=== PATIENT | female | born 1970 | race Caucasian/White ===

== ENCOUNTER 2018-06-30 10:19 | Emergency (ER) | payer OTHER, SELFPAY ==
--- NOTE | 2018-06-30 10:23 | ED_ITS ---
HPI - Extremity Injury (Upper) General Chief Complaint: Extremity Injury, Upper Stated Complaint: POSSIBLE BROKEN RT ELBOW Time Seen by Provider: 06/30/18 10:22 Source: patient Mode of arrival: ambulatory Limitations: no limitations History of Present Illness HPI narrative: Patient is a 48-year-old left-hand dominant female here for evaluation of right elbow injury. She states that she hit her right elbow on a produce cart while working at [employer]. She states that she ?heard a crack? has had pain in the elbow since then. It occurred just prior to arrival here in the ER. Related Data Home Medications Medication Instructions Recorded Confirmed gabapentin [Neurontin] 300 mg PO QHS 12/23/17 05/18/18 Previous Rx's Medication Instructions Recorded levothyroxine 100 mcg PO QAM #90 tab 08/05/17 estradiol 1 mg PO QDAY #90 tab 08/20/17 permethrin [Elimite] 1 carolina TOPICAL SEE INSTRUCTIONS #60 11/12/17 gm triamcinolone acetonide 0 gm TOPICAL BID #60 tube 12/15/17 paroxetine 20 mg tablet 40 mg PO QDAY #60 tab 05/19/18 Allergies Allergy/AdvReac Type Severity Reaction Status Date / Time codeine [CODEINE] Allergy Severe ANAPHYLAXIS Verified 06/30/18 10:26 Penicillins [PENICILLINS] Allergy Severe ANAPHYLAXIS Verified 06/30/18 10:26 shellfish derived Allergy Severe CRAB, Verified 06/30/18 10:26 [SHELLFISH DERIVED] SWELLING AIRWAIR CLOSED latex [LATEX] Allergy Mild rash Verified 06/30/18 10:26 Review of Systems Constitutional Denies fever(s) and Denies headache(s) ENT Ears, Nose, Mouth, and Throat: Denies headache(s) Musculoskeletal Denies myalgias, Denies deformity, Reports arthralgias (Right elbow), Denies joint swelling and Denies tingling Integumentary/Breasts Denies rash Neurologic Denies headache(s), Denies tingling and Denies paresthesias [facility] Medical History Anxiety (Chronic) Cervical spine disease (Chronic) Chronic back pain (Chronic) Depression (Chronic) Hypothyroidism (Chronic) Lumbar spine pain (Chronic) Surgical History Status post hysterectomy (Resolved) Social History marital status: Smoking Status: Current every day smoker alcohol intake: current (2 + A DAY ) substance use type: does not use Exam Initial Vital Signs Initial Vital Signs: Vital Signs Temperature 97.4 F L 06/30/18 10:26 Pulse Rate 84 06/30/18 10:26 Respiratory Rate 18 06/30/18 10:26 Blood Pressure 136/89 06/30/18 10:26 Pulse Oximetry 98 06/30/18 10:26 Const General: cooperative, healthy appearing, comfortable, well developed, well groomed and No acute distress Orientation: alert, awake and oriented x3 HENMT Head: normal to inspection and normocephalic Resp Effort & Inspection: normal respiratory effort Auscultation: clear to auscultation bilaterally Cardio Rate: regular rate Rhythm: regular rhythm Pulses: radial pulses present Skin Rashes: no rashes Neuro Sensory Exam: no sensory deficits noted Extrem Other: Tenderness to palpation over the medial epicondyle of the right elbow. Limited range of motion of the right elbow secondary to pain. Right forearm right wrist right hand right shoulder right upper arm unremarkable. Psych Appearance: grossly normal and well kempt Course Orders Ordered: ED Orders 06/30/18 10:23 XR elbow RT min 3V Stat 06/30/18 10:49 CT UE RT wo con Stat Vital Signs - 8 hr 06/30/18 10:26 Temperature 97.4 F L Pulse Rate 84 Respiratory Rate 18 Blood Pressure 136/89 Pulse Oximetry 98 MDM - Extremity Injury (Upper) Imaging Data X-ray elbow: Radiologist's impression: [address] [address] XRay Report Signed Patient: Alisha Hahn MMR#: [id number] : 1970Acct:[id number] Age/Sex: 48 / FDate of Service: 06/30/18 Loc: ED Accession Number: [id number] Procedure: XR elbow RT min 3V Ordering Provider: Aly Joy D.O. PROCEDURE: XR ELBOW RT MIN 3V INDICATIONS: Possible fractured elbow after fall TECHNIQUE: 3 views of the elbow were acquired. COMPARISON: None. FINDINGS: Bones: No displaced fractures or dislocations. No suspicious bony lesions. Small enthesophyte is identified along the lateral humeral epicondyle, likely at the common extensor tendon origin. Soft tissues: There is a moderate-sized elbow joint effusion. No suspicious soft tissue calcifications. IMPRESSION: Moderate-sized elbow joint effusion does raise the suspicion for possible nonvisualized/nondisplaced fracture, most likely involving the radial head. Please consider CT or MRI for further evaluation. Dictated by: Hunter Atkinson M.D. on 06/30/2018 at 9:35 Approved by: Hunter Atkinson M.D. on 06/30/2018 at 9:41 CT elbow: Radiologist's impression: PROCEDURE: CT UE RT WO CON INDICATIONS: Right elbow pain post injury. Abnormal X-ray TECHNIQUE: Noncontrast 1-1.5 mm axial sections were acquired through the elbow joint, with coronal and sagittal reformats. COMPARISON: [facility], , XR ELBOW RT MIN 3V, 06/30/2018, 10:27. FINDINGS: Image quality: Excellent. Bones: No fracture found. Soft tissues: No hematoma identified. No retracted tendon is seen. IMPRESSION: No trauma identified. Depending on the clinical status followup by MR scanning may become necessary. Dictated by: Jamin Knutson M.D. on 06/30/2018 at 11:16 Approved by: Jamin Knutson M.D. on 06/30/2018 at 11:18 [facility] Narrative Medical decision making narrative: Patient is neurovascularly intact. X-ray negative for fracture, CT scans negative for fracture. I do not feel that an MRI is needed secondary to her history and physical exam. Will place her in a sling for comfort. I did discuss this with the patient. Informed her to contact her primary care doctor for a follow-up. She was given return precautions. She expressed understanding and agreement with plan. Discharge Plan Departure Patient Disposition: Home Clinical Impression: Effusion of elbow joint, right, Contusion of elbow, right Instructions: How To Perform RICE (Rest, Ice, Compress, Elevate) Activity Restrictions/Additional Instructions: The sling is for your use as needed for comfort. I do recommend that you spent most of your time out of the sling to avoid stiffness of the right shoulder. Call your primary care doctor for a follow-up. You are only limited in your activity by the discomfort in your elbow. Return to the emergency department for any new or worsening symptoms Prescriptions: No Action levothyroxine 100 MCG tablet 100 mcg PO QAM Qty: 90 RF: 3 estradiol 1 MG tablet 1 mg PO QDAY Qty: 90 RF: 3 permethrin [Elimite] 5 % cream 1 carolina Topical SEE INSTRUCTIONS Qty: 60 RF: 1 triamcinolone acetonide 0.1 % cream Topical BID Qty: 60 RF: 0 paroxetine HCl [Paxil] 20 mg tablet 40 mg PO QDAY Qty: 60 RF: 3 gabapentin [Neurontin] 300 MG capsule 300 mg PO QHS RF: 0
[2018-06-30 10:26] VITALS: BP 136/89; PULSE 84; RESP 18; TEMP 36.3; O2SAT 98; BMI 28.3
--- NOTE | 2018-06-30 10:49 | DI.CT.S_ITS ---
PROCEDURE: CT UE RT WO CON INDICATIONS: Right elbow pain post injury. Abnormal X-ray TECHNIQUE: Noncontrast 1-1.5 mm axial sections were acquired through the elbow joint, with coronal and sagittal reformats. COMPARISON: [facility], CR, XR ELBOW RT MIN 3V, 06/30/2018, 10:27. FINDINGS: Image quality: Excellent. Bones: No fracture found. Soft tissues: No hematoma identified. No retracted tendon is seen. IMPRESSION: No trauma identified. Depending on the clinical status followup by MR scanning may become necessary. Dictated by: Jamin Knutson M.D. on 06/30/2018 at 11:16 Approved by: Jamin Knutson M.D. on 06/30/2018 at 11:18
[2018-06-30 11:58] VITALS: BP 130/92; PULSE 72; RESP 17; O2SAT 97
== END 2018-06-30 12:06 | disposition home or self-care (01) ==
PROVIDERS: Emergency Provider Emergency Medicine; PCP Family Medicine
DX: M25.421 Effusion, right elbow (principal); S50.01XA Contusion of right elbow, initial encounter; W22.8XXA Striking against or struck by other objects, initial encounter
CPT/HCPCS: 73080; 73200; 99282; 99283

== ENCOUNTER 2018-09-02 09:02 | Emergency (ER) | payer OTHER, SELFPAY ==
[2018-09-02 09:06] VITALS: BP 129/92; PULSE 82; RESP 18; TEMP 36.6; O2SAT 100
--- NOTE | 2018-09-02 12:22 | ED_ITS ---
HPI - Back Pain/Injury <BABAR Cole - Last Filed: 09/02/18 22:14> General Chief Complaint: Back Pain/Injury Stated Complaint: HIP PAIN,LUMPS ON BREAST Time Seen by Provider: 09/02/18 12:06 Source: patient Mode of arrival: ambulatory Limitations: no limitations History of Present Illness HPI Narrative: 48-year-old female with history of hypothyroidism and is everyday smoker here for complaint of right lower back pain and hip pain over the past week. She denies any falls or trauma to the area. She has a chronic history of lower back pain. Pain radiates from the right lower back down into her buttocks and thigh area. She denies any loss of bladder or bowel control. She is ambulatory into the emergency room. Increased pain with motion of the lower back. She also complains of feeling some lumps into her right breast that she noticed a week ago. She states that some of these lumps do cause some discomfort when she is rubbing that area. She denies any redness or swelling to the breast. No breast drainage. She reports that she has not had a mammogram for many years. MD Complaint: back pain Related Data Home Medications Medication Instructions Recorded Confirmed gabapentin [Neurontin] 300 mg PO QHS 12/23/17 07/29/18 Previous Rx's Medication Instructions Recorded paroxetine 20 mg tablet 40 mg PO QDAY #60 tab 05/19/18 benzonatate 200 mg capsule 200 mg PO TID PRN #14 cap 07/29/18 fluticasone 50 mcg/actuation nasal 2 spray NASAL DAILY #9.9 gram 07/29/18 spray,suspension estradiol 1 mg PO QDAY #90 tab 08/20/18 levothyroxine 100 mcg PO QAM #90 tab 08/20/18 cyclobenzaprine 10 mg PO TID PRN #12 tab 09/02/18 prednisone 40 mg PO DAILY #8 tab 09/02/18 Allergies Allergy/AdvReac Type Severity Reaction Status Date / Time codeine [CODEINE] Allergy Severe ANAPHYLAXIS Verified 07/29/18 13:25 Penicillins [PENICILLINS] Allergy Severe ANAPHYLAXIS Verified 07/29/18 13:25 shellfish derived Allergy Severe CRAB, Verified 07/29/18 13:25 [SHELLFISH DERIVED] SWELLING AIRWAIR CLOSED latex [LATEX] Allergy Mild rash Verified 12/06/18 13:25 Review of Systems <BABAR Cole - Last Filed: 09/02/18 22:14> Constitutional Denies chills, Denies fever(s), Denies lethargy and Denies weakness Eyes Denies change in vision, Denies eye discharge, Denies irritation and Denies loss of vision ENT Ears, Nose, Mouth, and Throat: Denies change in voice, Denies neck pain and Denies sore throat Cardiovascular Denies chest pain, Denies irregular heart rhythm, Denies lightheadedness, Denies palpitations, Denies dyspnea, Denies dyspnea on exertion and Denies orthopnea Respiratory Denies cough, Denies dyspnea, Denies dyspnea on exertion and Denies wheezing Gastrointestinal Gastrointestinal: Denies abdominal pain, Denies change in bowel habits, Denies diarrhea, Denies nausea and Denies vomiting Genitourinary Denies hematuria, Denies flank pain, Denies urinary incontinence and Denies urinary urgency Musculoskeletal Denies neck pain Comments: Pain to right lower back and radiating into buttocks and right thigh Integumentary/Breasts Comments: Lumps to right breast Neurologic Denies confusion, Denies loss of vision and Denies weakness Psychiatric Denies anxiety, Denies confusion, Denies depression, Denies homicidal ideation and Denies suicidal ideation Endocrine Denies palpitations Hematologic/Lymphatic Denies easy bruising Allergic/Immunologic Denies wheezing Exam <BABAR Cole - Last Filed: 09/02/18 22:14> Initial Vital Signs Initial Vital Signs: Vital Signs Temperature 97.9 F 09/02/18 09:06 Pulse Rate 82 09/02/18 09:06 Respiratory Rate 18 09/02/18 09:06 Blood Pressure 129/92 H 09/02/18 09:06 Pulse Oximetry 100 09/02/18 09:06 Const General: cooperative and well developed Nutritional Appearance: well nourished Orientation: alert, awake, oriented x3 and not confused HENFL Mouth: oral mucosae normal and moist mucous membranes Eyes Conjunctivae: conjunctivae normal Sclera: sclerae normal Pupils: PERRL EOM: EOM intact bilaterally Chest Other: Bilateral breast with no swelling no erythema no signs of infection. No discharge. Multiple firm nodules felt to the right lower breast. No induration and no fluctuance Resp Effort & Inspection: normal respiratory effort, able to speak in complete sentences, no respiratory distress and no use of accessory muscles Auscultation: clear to auscultation bilaterally, no rales, no rhonchi and no wheezes Cardio Rate: regular rate Rhythm: regular rhythm Heart Sounds: no click, no gallops, no murmurs and no rubs Skin General: no rashes or lesions noted, No jaundice and No petechiae Neuro General: alert, oriented x3, gait normal and no focal motor deficits Speech: speech normal <Ellie Castro DO - Last Filed: 09/05/18 09:09> Initial Vital Signs Initial Vital Signs: Vital Signs Temperature 97.9 F 09/02/18 09:06 Pulse Rate 82 09/02/18 09:06 Respiratory Rate 18 09/02/18 09:06 Blood Pressure 129/92 H 09/02/18 09:06 Pulse Oximetry 100 09/02/18 09:06 Course <BABAR Cole - Last Filed: 09/02/18 22:14> Vital Signs - 8 hr 09/02/18 09:06 Temperature 97.9 F Pulse Rate 82 Respiratory Rate 18 Blood Pressure 129/92 H Pulse Oximetry 100 <Ellie Castro DO - Last Filed: 09/05/18 09:09> Vital Signs - 8 hr 09/02/18 09:06 Temperature 97.9 F Pulse Rate 82 Respiratory Rate 18 Blood Pressure 129/92 H Pulse Oximetry 100 MDM - Back Pain/Injury <BABAR Cole - Last Filed: 09/02/18 22:14> MDM Narrative Medical decision making narrative: Acute on chronic pain into the right lumbar paraspinal area that radiates into the buttocks and thighs presents as sciatica. Will treat with short course of prednisone muscle relaxer and over- the-counter ibuprofen. Multiple nodules to the right lower breast felt on exam no signs of infection will have patient follow up with primary care provider for mammogram. For any worsening symptoms return to the emergency room. Discharge Plan Departure Patient Disposition: Home Clinical Impression: Back pain, Breast nodule Discharge Date/Time: 09/02/18 12:48 Interventions: ED Discharge Assessment Last Done: 09/02/18 12:46 Instructions: DI for Back Pain With Sciatica Activity Restrictions/Additional Instructions: Back and hip pain presents as sciatica. Use [id number] ibuprofen for discomfort. Short course of prednisone is prescribed for anti-inflammatory effects along with a muscle relaxer use as directed. No driving on the muscle relaxers a can make you drowsy. Recommend further evaluation for nodules to the right breast by follow up primary care provider and scheduling mammogram. Follow up with primary care provider. Return emergency room for any worsening symptoms. Prescriptions: New cyclobenzaprine 10 mg tablet 10 mg PO TID PRN (Reason: muscle spasm) Qty: 12 RF: 0 prednisone 20 mg tablet 40 mg PO DAILY Qty: 8 RF: 0 No Action paroxetine HCl [Paxil] 20 mg tablet 40 mg PO QDAY Qty: 60 RF: 3 estradiol 1 mg tablet 1 mg PO QDAY Qty: 90 RF: 3 levothyroxine 100 mcg tablet 100 mcg PO QAM Qty: 90 RF: 0 benzonatate 200 mg capsule 200 mg PO TID PRN (Reason: cough) Qty: 14 RF: 0 fluticasone 50 mcg/actuation spray,suspension 2 spray NASAL DAILY Qty: 9.9 RF: 0 gabapentin [Neurontin] 300 MG capsule 300 mg PO QHS RF: 0 Referrals: Justino Cintron MD [Primary Care Provider] - Stand Alone Forms: Work Release Note <Ellie Castro DO - Last Filed: 09/05/18 09:09> Cosign ED Attending Cosignature Attestation: I was immediately available in the department for consultation. This documentation has been reviewed and I agree with assessment and plan. Supervised by Ellie Castro DO
[2018-09-02 12:46] VITALS: BP 131/102; PULSE 82; RESP 20; O2SAT 96
== END 2018-09-02 12:48 | disposition home or self-care (01) ==
PROVIDERS: Emergency Provider Nurse Practitioner Family; PCP Family Medicine
DX: M54.9 Dorsalgia, unspecified (principal); N63.0 Unspecified lump in unspecified breast
CPT/HCPCS: 99282

== ENCOUNTER → 2019-01-24 12:00 | Outpatient (CLI) | payer OTHER, MEDICAID, SELFPAY ==
[2019-01-24 12:49] LABS: Add Manual Diff / Slide Review NO; Basophils Absolute Auto 0 /uL (0-100); Basophils Percent Auto 0.9 % (0-2); Eosinophils Absolute Auto 0 /uL (0-450); Eosinophils Percent Auto 0.8 % (2-4); Hematocrit 41.4 % (36-46); Hemoglobin 14.5 g/dL (12.0-16.0); Lymphocytes Absolute Auto 1500 /uL (1100-4500); Lymphocytes Percent Auto 26.1 % (25-40); Mean Corpuscular HGB Conc 34.9 % (30-36); Mean Corpuscular Volume 94.5 fL (80-100); Monocytes Absolute Auto 600 /uL (0-900); Monocytes Percent Auto 10.7 % (3-14); Neutrophils Absolute Auto 3400 /uL (1500-7000); Neutrophils Percent Auto 61.5 % (50-75); Platelet Count 212 X10^3/uL (150-400); Red Blood Cell Count 4.38 X10^6/uL (4.0-5.2); Red Cell Distribution Width 13.3 % (11.6-14.8); White Blood Cell Count 5.6 X10^3/uL (4.5-11.0)
[2019-01-24 12:50] LABS: Alanine Aminotransferase 18 IU/L (9-52); Albumin 4.3 g/dL (3.5-5.0); Albumin Globulin Ratio 0.9 (1.0-2.8); Alkaline Phosphatase 114 U/L (38-126); Aspartate Aminotransferase 29 IU/L (14-36); BUN Creatinine Ratio 21.4 (6-22); Bilirubin Total 0.7 mg/dL (0.2-1.3); Blood Urea Nitrogen 15 mg/dL (7-17); Calcium 9.5 mg/dL (8.4-10.2); Carbon Dioxide 22 mmol/L (22-32); Chloride 104 mmol/L (98-107); Cholesterol 201 mg/dL (140-199); Estimated Glomerular Filt Rate > 60.0 mL/min (>60); Glucose 93 mg/dL (70-100); HDL Cholesterol 70 mg/dL (40-60); HEMOLYSIS < 15 (0-50); LDL Cholesterol Calculated 84 mg/dL (<100); Potassium 4.4 mmol/L (3.4-5.1); Sodium 136 mmol/L (137-145); Total Protein 9.3 g/dL (6.3-8.2); Triglycerides 234 mg/dL (35-150)
== END ==
PROVIDERS: PCP Family Medicine; Visit Provider Nurse Practitioner
DX: Z00.00 Encounter for general adult medical examination without abnormal findings (principal)
CPT/HCPCS: 36415; 80053; 80061; 84439; 85025

== ENCOUNTER 2019-10-07 08:06 | Emergency (ER) | payer OTHER, MEDICAID, SELFPAY ==
[2019-10-07 08:15] VITALS: BP 157/87; PULSE 114; RESP 20; TEMP 36.7; O2SAT 99; BMI 21.2
--- NOTE | 2019-10-07 08:20 | DI.RAD.S_ITS ---
PROCEDURE: XR FOREARM RT 2V INDICATIONS: trip and fall, left shoulder, humerus and forearm pain TECHNIQUE: 2 views of the forearm were acquired. COMPARISON: None. FINDINGS: Bones: No fractures or dislocations. No suspicious bony lesions. Soft tissues: No suspicious soft tissue calcifications or masses. IMPRESSION: No fracture. No osseous lesion. If symptoms and/or clinical suspicion for pathology persists, further assessment with repeat radiographs (7-10 days) or advanced imaging (e.g. CT, MRI or bone scan) may be helpful. Dictated by: Trina Sanchez MD, PhD on 10/07/2019 at 8:55 Approved by: Trina Sanchez MD, PhD on 10/07/2019 at 9:01
--- NOTE | 2019-10-07 08:20 | DI.RAD.S_ITS ---
PROCEDURE: XR SHOULDER LT MIN 2V INDICATIONS: trip and fall, left shoulder, humerus and forearm pain TECHNIQUE: 3 views of the shoulder were acquired. COMPARISON: [facility], , SHOULDER MINIMUM 2VIEW RIGHT, 08/27/2007, 13:04. FINDINGS: Bones: No fractures or dislocations. No suspicious bony lesions. Visualized ribs appear intact. Soft tissues: No suspicious soft tissue calcifications. IMPRESSION: No evidence acute bony abnormality of the left shoulder. If clinical suspicion and/or symptoms persist, further assessment with repeat plain films, or advanced imaging (e.g., CT, MRI, or bone scan) may be helpful for further assessment. Dictated by: Larry Hyatt M.D. on 10/07/2019 at 8:57 Approved by: Larry Hyatt M.D. on 10/07/2019 at 8:58
--- NOTE | 2019-10-07 08:20 | DI.RAD.S_ITS ---
PROCEDURE: XR HUMERUS LT 2V INDICATIONS: trip and fall, left shoulder, humerus and forearm pain TECHNIQUE: 2 views of the humerus were acquired. COMPARISON: None. FINDINGS: Bones: No fractures or dislocations. No suspicious bony lesions. Soft tissues: No suspicious soft tissue calcifications. IMPRESSION: No fracture. No osseous lesion. If symptoms and/or clinical suspicion for pathology persists, further assessment with repeat radiographs (7-10 days) or advanced imaging (e.g. CT, MRI or bone scan) may be helpful. Dictated by: Trina Sanchez MD, PhD on 10/07/2019 at 8:52 Approved by: Trina Sanchez MD, PhD on 10/07/2019 at 8:55
--- NOTE | 2019-10-07 08:24 | ED_ITS ---
HPI - Extremity Injury (Upper) General Chief Complaint: Extremity Injury, Upper Stated Complaint: FELL A WEEK AGO,LEFT SHOULDER PAIN Time Seen by Provider: 10/07/19 08:15 History of Present Illness HPI narrative: CC: The left shoulder and arm pain. HPI: The patient is a 49-year-old female who 1 week ago tripped and fell over her dog and injured her left arm and shoulder when she fell. She was extending her left arm to catch herself and jammed her arm and left shoulder. She has had increasing pain and discomfort ever since. She denies any head injury neck injury neck pain back pain, chest pain, abdominal pain. She did not lose consciousness. She does not have a headache. She has had no incontinence of urine or stool when she fell. She has had no abdominal pain nausea vomiting or diarrhea. Related Data Home Medications Medication Instructions Recorded Confirmed gabapentin 300 mg capsule 600 mg PO DAILY cap 08/03/19 08/31/19 Previous Rx's Medication Instructions Recorded estradiol 1 mg tablet See Rx Instructions .ROUTE 05/23/19 .COMPLEX #30 tablet levothyroxine 100 mcg tablet See Rx Instructions .ROUTE 08/29/19 .COMPLEX #90 tablet paroxetine HCl 20 mg tablet See Rx Instructions .ROUTE 09/30/19 .COMPLEX #60 tablet cyclobenzaprine 10 mg PO TID PRN #15 tab 10/07/19 naproxen 500 mg PO Q12H PRN #20 tab 10/07/19 Allergies Allergy/AdvReac Type Severity Reaction Status Date / Time codeine [CODEINE] Allergy Severe ANAPHYLAXIS Verified 08/31/19 10:49 Penicillins [PENICILLINS] Allergy Severe ANAPHYLAXIS Verified 08/31/19 10:49 shellfish derived Allergy Severe CRAB, Verified 08/31/19 10:49 [SHELLFISH DERIVED] SWELLING AIRWAIR CLOSED latex [LATEX] Allergy Mild rash Verified 08/31/19 10:49 Review of Systems Review of Systems Narrative: She denies any headache, numbness tingling loss of sensation. She has had no weakness or paralysis but feels like she can't use her left arm. She has had no fever chills sweats chest pain cough shortness of breath difficulty in breathing. She does smoke cigarettes. She has had no abdominal pain nausea vomiting diarrhea. She has had no urinary symptoms. Patient History Medical History Anxiety (Chronic) Cervical spine disease (Chronic) Chronic back pain (Chronic) Chronic pain (Acute) Depression (Chronic) Dizziness (Acute) Encounter for smoking cessation counseling (Acute) Fatigue (Acute) Greater trochanteric bursitis of right hip (Acute) Hypothyroidism (Chronic) Insomnia disorder, with non-sleep disorder mental comorbidity (Acute) Lumbar spine pain (Chronic) Psoas muscle strain (Acute) Somatic dysfunction of abdominal region (Acute) Tobacco abuse disorder (Acute) Surgical History Status post hysterectomy (Resolved) Social History marital status: Smoking Status: Current every day smoker (4 cigarettes a day) alcohol intake: current (2 + A DAY ) substance use type: does not use Smoking Status: Current every day smoker (4 cigarettes a day) alcohol intake frequency: 0-2 drinks per day Substance Use Type: does not use Exam Narrative Exam Narrative: PHYSICAL EXAM: CONSTITUTIONAL: Awake, Alert, Oriented, Coherent, Cooperative in NAD. Sitting on the edge of the bed holding her left arm partially splinted again HEAD: AT/NC EENT: PERRL, FROM of eyes, no discharge, no nystagmus Odor of tobacco NECK: Supple, no obvious JVD, Trachea is midline without stridor, SPINE: No gross deformity, mild tenderness to palpation over the midthoracic spine without any deformity. No CVA tenderness. The patient's left shoulder is diffusely tender to palpation over the trapezius and rhomboid muscles. She is able to passively abduct her left shoulder to the horizontal position but grimaces with pain. Palpation of the head of the humerus is tender and proximal humerus without any deformity. She resists internal and external rotation of the shoulder. She is able to flex and extend her elbow as well as supinate her forearm. Her mid forearm is tender to palpation without appreciable deformity. Her radial pulse is 2 +. She has good capillary refill in her fingers and sensation. 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 THORAX: No deformity, retractions, chest wall tenderness, LUNGS: Clear with symmetrical breath sounds without respiratory distress HEART: Normal heart tones, regular rhythm and rate without murmur. ABDOMEN: Soft, non-tender, normal bowel sounds without guarding, rebound, rigidity or palpable mass or EXTREMITIES: No edema, cyanosis, deformity SKIN: No bruising care purple she has a papular rash over the volar left forearm. NEURO: Awake, alert, oriented, no focal facial asymmetry/ cranial nerves II-XII are symmetrical, moves all 4 extremities and is ambulatory Initial Vital Signs Initial Vital Signs: Vital Signs Temperature 98.1 F 10/07/19 08:15 Pulse Rate 114 H 10/07/19 08:15 Respiratory Rate 20 10/07/19 08:15 Blood Pressure 157/87 H 10/07/19 08:15 Pulse Oximetry 99 10/07/19 08:15 Course Course Course Narrative: 0832: For the patient's pain and discomfort she was administered Flexeril 10 mg p.o. and Toradol 30 mg IM. X-rays of her left shoulder left humerus and forearms were ordered. 0905: The patient's x-rays are all negative for any fractures. The patient will be referred to her primary care physician to get a referral to physical therapy to evaluate and treat. In the meantime she will be treated with cyclobenzaprine 10 mg 3 times a day as needed for muscle spasms and Naprosyn 500 mg b.i.d. for pain and discomfort. Orders Ordered: Discontinued Medications Cyclobenzaprine HCl (Flexeril) 10 mg PO NOW ONE Stop: 10/07/19 08:21 Last Admin: 10/07/19 08:53 Dose: 10 mg Documented by: SHALOM Ketorolac Tromethamine (Toradol) 30 mg IM NOW ONE Stop: 10/07/19 08:21 Last Admin: 10/07/19 08:53 Dose: 30 mg Documented by: SHALOM Vital Signs Vital signs: Vital Signs - 8 hr 10/07/19 08:15 Temperature 98.1 F Pulse Rate 114 H Respiratory Rate 20 Blood Pressure 157/87 H Pulse Oximetry 99 Discharge Plan Departure Patient Disposition: Home Clinical Impression: Injury of shoulder Qualifiers: Encounter type: initial encounter Laterality: left Qualified Code(s): S49.92XA - Unspecified injury of left shoulder and upper arm, initial encounter Arm pain Qualifiers: Laterality: left Qualified Code(s): M79.602 - Pain in left arm Fall Qualifiers: Encounter type: initial encounter Qualified Code(s): W19.XXXA - Unspecified fall, initial encounter Acute shoulder pain Qualifiers: Laterality: left Qualified Code(s): M25.512 - Pain in left shoulder Muscle strain of forearm Qualifiers: Encounter type: initial encounter Laterality: left Qualified Code(s): S56.912A - Strain of unspecified muscles, fascia and tendons at forearm level, left arm, initial encounter Discharge Date/Time: 10/07/19 09:48 Instructions: DI for Wrist Sprain, DI for Contusion, DI for Muscle Strain, DI for Shoulder Sprain, DI for Forearm Muscle Strain, DI for Shoulder Pain Activity Restrictions/Additional Instructions: You need to follow-up with your family doctor for a recheck and re-evaluation and obtain a referral to physical therapy to evaluate and treat. You can apply cold compresses to the areas of discomfort every 2-3 hours for 20-30 minutes. You can also try warm compresses and see which helps with your pain and discomfort warmth or cold compresses. Wear the sling as needed for support and to rest your arm. However you must continue to use the arm to prevent it from freezing up and developing a frozen shoulder. For the pain and discomfort and muscle spasms use the Naprosyn and cyclobenzaprine 10 mg 3 times a day as needed for muscle spasms cramps and persistent pain. Prescriptions: New cyclobenzaprine 10 mg tablet 10 mg PO TID PRN (Reason: muscle spasm) Qty: 15 RF: 0 naproxen 500 mg tablet,delayed release (DR/EC) 500 mg PO Q12H PRN (Reason: pain) Qty: 20 RF: 0 No Action estradiol 1 mg tablet See Rx Instructions .ROUTE .COMPLEX Qty: 30 RF: 1 levothyroxine 100 mcg tablet See Rx Instructions .ROUTE .COMPLEX Qty: 90 RF: 2 paroxetine HCl 20 mg tablet See Rx Instructions .ROUTE .COMPLEX Qty: 60 RF: 1 gabapentin 300 mg capsule 600 mg PO DAILY RF: 0 Referrals: Mickey Falcon DO [Primary Care Provider] -
[2019-10-07] MEDS: KETOROLAC 60 MG/2 ML VIAL 30 MG IM (08:53)
[2019-10-07] MEDS: CYCLOBENZAPRINE 10 MG TABLET PO (08:53)
[2019-10-07 09:45] VITALS: BP 115/71; PULSE 100; RESP 18; O2SAT 98
--- NOTE | 2019-10-07 09:46 | PC.NURSE ---
placed sling on patient prior to discharge. reviewed all discharge instructions with patient.
== END 2019-10-07 09:48 | disposition home or self-care (01) ==
PROVIDERS: Emergency Provider Emergency Medicine; PCP Family Medicine
DX: S49.92XA Unspecified injury of left shoulder and upper arm, initial encounter (principal); S56.912A Strain of unspecified muscles, fascia and tendons at forearm level, left arm, initial encounter; W01.0XXA Fall on same level from slipping, tripping and stumbling without subsequent striking against object, initial encounter
CPT/HCPCS: 73030; 73060; 73090; 96372; 99284; J1885

== ENCOUNTER 2020-01-26 13:35 | Emergency (ER) | payer OTHER, MEDICAID, SELFPAY ==
[2020-01-26 13:47] VITALS: BP 131/78; PULSE 91; RESP 16; TEMP 36.9; O2SAT 98; BMI 28.0
--- NOTE | 2020-01-26 13:57 | ED.GENADULT ---
HPI - General Adult General Chief complaint: Weakness Stated complaint: 'i don't feel good' weakness Time Seen by Provider: 01/26/20 13:49 Source: patient Mode of arrival: Ambulatory Limitations: no limitations History of Present Illness HPI narrative: 49-year-old female here for evaluation of generally not feeling very well and also an upset stomach. She states that she threw up a couple days ago and since then she has had an upset stomach and weakness. She has been tolerating oral intake. Other than that 1 episode of vomiting no prior episodes. No diarrhea. No urinary symptoms. No recent antibiotics. No sick contacts. Has not tried anything for symptoms prior to arrival. She came into the emergency department today because she continued to have ?a queasy stomach ?after eating a ham and cheese sandwich for lunch. Related Data Home Medications Medication Instructions Recorded Confirmed gabapentin 300 mg capsule 300 mg PO TID PRN 11/02/19 Previous Rx's Medication Instructions Recorded levothyroxine 100 mcg tablet See Rx Instructions .ROUTE 08/29/19 .COMPLEX #90 tablet cyclobenzaprine 10 mg PO TID PRN #15 tab 10/07/19 naproxen 500 mg tablet,delayed 500 mg PO Q12H PRN #20 tab 11/22/19 release estradiol 1 mg tablet See Rx Instructions .ROUTE 12/07/19 .COMPLEX #30 tablet paroxetine HCl 20 mg tablet See Rx Instructions .ROUTE 12/07/19 .COMPLEX #60 tablet ondansetron 4 mg PO Q6H PRN #14 tab 01/26/20 Allergies Allergy/AdvReac Type Severity Reaction Status Date / Time codeine [CODEINE] Allergy Severe ANAPHYLAXIS Verified 01/26/20 13:49 Penicillins [PENICILLINS] Allergy Severe ANAPHYLAXIS Verified 01/26/20 13:49 shellfish derived Allergy Severe CRAB, Verified 01/26/20 13:49 [SHELLFISH DERIVED] SWELLING AIRWAIR CLOSED latex [LATEX] Allergy Mild rash Verified 01/26/20 13:49 Review of Systems Constitutional Constitutional: Reports fatigue, Denies fever(s), Reports lethargy, Reports malaise and Reports weakness Cardiovascular Cardiovascular: Denies chest pain and Denies dyspnea Respiratory Respiratory: Denies dyspnea Gastrointestinal Gastrointestinal: Denies change in bowel habits, Denies diarrhea, Reports nausea and Reports vomiting Comments: Upset stomach Genitourinary Genitourinary: Denies dysuria Genitourinary: Denies dysuria Integumentary/Breasts Skin/Breast: Denies rash Neurologic Neurologic: Denies behavioral changes and Reports weakness Psychiatric Psychiatric: Denies behavioral changes Endocrine Endocrine: Reports fatigue Hematologic/Lymphatic Hematologic/Lymphatic: Denies easy bleeding and Denies easy bruising Patient History Medical History Anxiety (Chronic) Cervical spine disease (Chronic) Chronic back pain (Chronic) Chronic pain (Acute) Depression (Chronic) Dizziness (Acute) Encounter for smoking cessation counseling (Acute) Fatigue (Acute) Greater trochanteric bursitis of right hip (Acute) Hypothyroidism (Chronic) Insomnia disorder, with non-sleep disorder mental comorbidity (Acute) Lumbar spine pain (Chronic) Psoas muscle strain (Acute) Somatic dysfunction of abdominal region (Acute) Tobacco abuse disorder (Acute) Surgical History Status post hysterectomy (Resolved) Social History marital status: Smoking Status: Current every day smoker alcohol intake: current (2 + A DAY ) substance use type: does not use Smoking Status: Current every day smoker alcohol intake frequency: 0-2 drinks per day Substance Use Type: does not use Exam Initial Vital Signs Initial Vital Signs: Vital Signs Temperature 98.4 F 01/26/20 13:47 Pulse Rate 91 H 01/26/20 13:47 Respiratory Rate 16 01/26/20 13:47 Blood Pressure 131/78 01/26/20 13:47 Pulse Oximetry 98 01/26/20 13:47 Const General: cooperative and comfortable HENMT Head: normal to inspection and normocephalic Mouth: oral mucosae normal Resp Effort & Inspection: normal respiratory effort Auscultation: clear to auscultation bilaterally Cardio Rate: regular rate Rhythm: regular rhythm GI Inspection: non-distended Palpation: soft, No firm and No tender Skin Lesions: no lesions Rashes: no rashes Neuro General: patient alert and patient awake Cognition: normal cognition Speech: speech normal Extrem General: normal to inspection and capillary refill normal Psych Appearance: grossly normal and well kempt Scores GCS Aurora coma scale eye opening: Spontaneous Aurora coma scale verbal response: Orientated Lex coma scale motor response: Obey commands Aurora coma scale total score: 15 Course Orders Ordered: ED Orders 01/26/20 13:50 Complete Blood Count AUTO DIFF Stat Comprehensive Metabolic Panel Stat Lipase Stat Discontinued Medications Sodium Chloride (Normal Saline 0.9%) 1,000 mls @ 1,000 mls/hr IV BOLUS ONE Stop: 01/26/20 14:56 Last Admin: 01/26/20 14:03 Dose: 1,000 mls/hr Documented by: VANCE Ondansetron HCl (Zofran) 4 mg IV NOW ONE Stop: 01/26/20 13:58 Last Admin: 01/26/20 14:03 Dose: 4 mg Documented by: VANCE Vital Signs Vital signs: Vital Signs - 8 hr 01/26/20 13:47 01/26/20 14:00 01/26/20 14:30 Temperature 98.4 F Pulse Rate 91 H 88 82 Respiratory Rate 16 16 Blood Pressure 131/78 Blood Pressure [Right Arm] 117/74 113/69 Pulse Oximetry 98 94 96 Medical Decision Making Lab Data Lab results reviewed: Yes I reviewed the patient's lab results. Result diagrams: 01/26/20 13:50 01/26/20 13:50 Labs: Lab Results 01/26/20 01/26/20 Range/Units 13:50 13:50 WBC 4.7 (4.5-11.0) X10^3/uL RBC 4.07 (4.0-5.2) X10^6/uL Hgb 13.7 (12.0-16.0) g/dL Hct 39.0 (36-46) % MCV 95.8 (80-100) fL MCH 33.6 (26-34) PG MCHC 35.1 (30-36) % RDW 12.7 (11.6-14.8) % Plt Count 217 (150-400) X10^3/uL Neut % (Auto) 40.8 L (50-75) % Lymph % (Auto) 36.1 (25-40) % King % (Auto) 17.6 H (3-14) % Eos % (Auto) 4.7 H (2-4) % Baso % (Auto) 0.8 (0-2) % Neut # (Auto) 1900 (4631-6898) /uL Lymph # (Auto) 1700 (9896-2392) /uL King # (Auto) 800 (0-900) /uL Eos # (Auto) 200 (0-450) /uL Baso # (Auto) 0 (0-100) /uL Sodium 137 (137-145) mmol/L Potassium 3.9 (3.4-5.1) mmol/L Chloride 106 (98-107) mmol/L Carbon Dioxide 22 (22-32) mmol/L BUN 19 H (7-17) mg/dL Creatinine 0.81 (0.52-1.04) mg/dL Estimated GFR > 60.0 (>60) mL/min BUN/Creatinine Ratio 23.5 H (6-22) Glucose 114 H (70-100) mg/dL Calcium 9.2 (8.4-10.2) mg/dL Total Bilirubin 0.7 (0.2-1.3) mg/dL AST 36 (14-36) IU/L ALT 20 (<35) IU/L Alkaline Phosphatase 95 (38-126) U/L Total Protein 9.3 H (6.3-8.2) g/dL Albumin 4.2 (3.5-5.0) g/dL Globulin 5.1 H (1.7-4.1) g/dL Albumin/Globulin Ratio 0.8 L (1.0-2.8) Lipase 67 (23-300) U/L MDM Narrative Medical decision making narrative: Patient reports improvement of her nausea and ?queasy ?stomach after Zofran. She still states she is very fatigued. Her labs are unremarkable. She is not having diarrhea. I feel we can hold on further workup. Patient is safe to be discharged home. Will send home with a prescription for Zofran. She was given return precautions. She expressed understanding and agreement. Discharge Plan Departure Patient Disposition: Home Clinical Impression: Nausea Fatigue Qualifiers: Fatigue type: unspecified Qualified Code(s): R53.83 - Other fatigue Instructions: DI for Fatigue Activity Restrictions/Additional Instructions: Use the nausea medicine as needed and as directed. They were electronically transmitted to [facility]. Be sure to eat a bland diet. Be sure to get plenty of fluids and sleep. Contact your primary provider for follow-up. Prescriptions: New ondansetron 4 mg tablet,disintegrating 4 mg PO Q6H PRN (Reason: nausea and vomiting) Qty: 14 RF: 0 No Action levothyroxine 100 mcg tablet See Rx Instructions .ROUTE .COMPLEX Qty: 90 RF: 2 gabapentin 300 mg capsule 300 mg PO TID PRN (Reason: Pain) RF: 0 naproxen 500 mg tablet,delayed release (DR/EC) 500 mg PO Q12H PRN (Reason: pain) Qty: 20 RF: 0 paroxetine HCl 20 mg tablet See Rx Instructions .ROUTE .COMPLEX Qty: 60 RF: 1 estradiol 1 mg tablet See Rx Instructions .ROUTE .COMPLEX Qty: 30 RF: 1 cyclobenzaprine 10 mg tablet 10 mg PO TID PRN (Reason: muscle spasm) Qty: 15 RF: 0 Referrals: Mickey Falcon DO [Primary Care Provider] -
[2020-01-26 14:00] VITALS: BP 117/74; PULSE 88; RESP 16; O2SAT 94
[2020-01-26 14:03] LABS: Add Manual Diff / Slide Review NO; Basophils Absolute Auto 0 /uL (0-100); Basophils Percent Auto 0.8 % (0-2); Eosinophils Absolute Auto 200 /uL (0-450); Eosinophils Percent Auto 4.7 % (2-4); Hemoglobin 13.7 g/dL (12.0-16.0); Lymphocytes Absolute Auto 1700 /uL (1100-4500); Lymphocytes Percent Auto 36.1 % (25-40); Mean Corpuscular HGB Conc 35.1 % (30-36); Mean Corpuscular Hemoglobin 33.6 PG (26-34); Mean Corpuscular Volume 95.8 fL (80-100); Monocytes Absolute Auto 800 /uL (0-900); Monocytes Percent Auto 17.6 % (3-14); Neutrophils Absolute Auto 1900 /uL (1500-7000); Neutrophils Percent Auto 40.8 % (50-75); Platelet Count 217 X10^3/uL (150-400); Red Blood Cell Count 4.07 X10^6/uL (4.0-5.2); Red Cell Distribution Width 12.7 % (11.6-14.8); White Blood Cell Count 4.7 X10^3/uL (4.5-11.0)
[2020-01-26] MEDS: ONDANSETRON 4 MG/2 ML INJ IV (14:03)
[2020-01-26] MEDS: SODIUM CHLORIDE 0.9% 1,000 ML 1000 ML IV (14:03)
[2020-01-26 14:08] LABS: Alanine Aminotransferase 20 IU/L (<35); Albumin 4.2 g/dL (3.5-5.0); Albumin Globulin Ratio 0.8 (1.0-2.8); Alkaline Phosphatase 95 U/L (38-126); Aspartate Aminotransferase 36 IU/L (14-36); BUN Creatinine Ratio 23.5 (6-22); Bilirubin Total 0.7 mg/dL (0.2-1.3); Blood Urea Nitrogen 19 mg/dL (7-17); Calcium 9.2 mg/dL (8.4-10.2); Carbon Dioxide 22 mmol/L (22-32); Chloride 106 mmol/L (98-107); Estimated Glomerular Filt Rate > 60.0 mL/min (>60); Globulin 5.1 g/dL (1.7-4.1); Glucose 114 mg/dL (70-100); HEMOLYSIS < 15 (0-50); Lipase 67 U/L (23-300); Potassium 3.9 mmol/L (3.4-5.1); Sodium 137 mmol/L (137-145); Total Protein 9.3 g/dL (6.3-8.2)
--- NOTE | 2020-01-26 14:13 | PC.NURSE ---
Pt states she has been having generalized weakness, NVD since thursday.
[2020-01-26 14:30] VITALS: BP 113/69; PULSE 82; O2SAT 96
[2020-01-26 15:25] VITALS: BP 109/66; PULSE 82; RESP 16; O2SAT 97
== END 2020-01-26 15:25 | disposition home or self-care (01) ==
PROVIDERS: Emergency Provider Emergency Medicine; PCP Family Medicine
DX: R11.0 Nausea (principal); R53.1 Weakness
CPT/HCPCS: 36415; 80053; 83690; 85025; 96361; 96374; 99284; J2405

== ENCOUNTER 2020-09-16 15:38 | Emergency (ER) | payer OTHER, MEDICAID, SELFPAY ==
[2020-09-16 15:43] VITALS: BP 146/86; PULSE 85; RESP 22; TEMP 37.1; O2SAT 97
[2020-09-16 15:58] LABS: Add Manual Diff / Slide Review NO; Basophils Absolute Auto 0 /uL (0-100); Basophils Percent Auto 1.1 % (0-2); Eosinophils Absolute Auto 200 /uL (0-450); Eosinophils Percent Auto 3.7 % (2-4); Hemoglobin 13.9 g/dL (12.0-16.0); Lymphocytes Absolute Auto 1600 /uL (1100-4500); Lymphocytes Percent Auto 37.6 % (25-40); Mean Corpuscular HGB Conc 33.8 % (30-36); Mean Corpuscular Hemoglobin 31.6 PG (26-34); Mean Corpuscular Volume 93.3 fL (80-100); Monocytes Absolute Auto 700 /uL (0-900); Monocytes Percent Auto 16.1 % (3-14); Neutrophils Absolute Auto 1800 /uL (1500-7000); Neutrophils Percent Auto 41.5 % (50-75); Platelet Count 239 X10^3/uL (150-400); Red Blood Cell Count 4.39 X10^6/uL (4.0-5.2); Red Cell Distribution Width 12.4 % (11.6-14.8); White Blood Cell Count 4.2 X10^3/uL (4.5-11.0)
[2020-09-16 16:04] LABS: INR 1.1 (0.9-1.3)
[2020-09-16 16:06] LABS: PTT Partial Thromboplastin Tim 32 SECONDS (26.4-36.2)
[2020-09-16 16:08] LABS: Alanine Aminotransferase 18 IU/L (<35); Alkaline Phosphatase 92 U/L (38-126); Aspartate Aminotransferase 28 IU/L (14-36); BUN Creatinine Ratio 19.2 (6-22); Bilirubin Total 0.3 mg/dL (0.2-1.3); Blood Urea Nitrogen 15 mg/dL (7-17); Calcium 9.2 mg/dL (8.4-10.2); Carbon Dioxide 30 mmol/L (22-32); Chloride 104 mmol/L (98-107); Estimated Glomerular Filt Rate > 60.0 mL/min (>60); Glucose 88 mg/dL (70-100); HEMOLYSIS < 15 (0-50); Lipase 80 U/L (23-300); Sodium 137 mmol/L (137-145)
[2020-09-16 16:19] LABS: Albumin 4.2 g/dL (3.5-5.0); Albumin Globulin Ratio 0.7 (1.0-2.8); Globulin 5.7 g/dL (1.7-4.1)
[2020-09-16 16:20] LABS: Total Protein 9.9 g/dL (6.3-8.2)
--- NOTE | 2020-09-16 16:25 | PC.NURSE ---
informed Dr. Castro of critical lab Total Protein 9.9, communication acknowledged, no orders given
--- NOTE | 2020-09-16 16:31 | ED_ITS ---
HPI - Abdominal Pain General Chief Complaint: Abdominal Pain Stated Complaint: abdominal pain x5 days Time Seen by Provider: 09/16/20 16:28 Source: patient Mode of arrival: Ambulatory Limitations: no limitations History of Present Illness HPI narrative: This is a 50-year-old female comes with complaint of 5 days of abdominal pain that she describes mostly in her lower abdomen on both sides. Patient has not had fevers that she is aware but has some subjective fever and chills on Thursday. She also had some nausea and 1 episode of vomiting on Thursday. She has not had any additional since then. She has had loose stools 1 time daily, no melena or hematochezia. She denies dysuria, urgency or frequency. Patient denies any vaginal bleeding or discharge. She denies any back or flank pain. Patient had similar symptoms tender 15 years prior but has not had any additional since. She takes estrogen supplementation, gabapentin for her, Paxil for mood and levothyroxine for her thyroid. She states she has had a total abdominal hysterectomy. She has allergies to penicillin and codeine. She does use tobacco, occasional alcohol denies any recreational drugs. Related Data Previous Rx's Medication Instructions Recorded paroxetine HCl 20 mg tablet See Rx Instructions .ROUTE 04/09/20 .COMPLEX #60 tab gabapentin 300 mg capsule See Rx Instructions .ROUTE 04/24/20 .COMPLEX #180 cap gabapentin 100 mg capsule 100 mg PO BID #60 cap 05/01/20 estradiol 1 mg tablet See Rx Instructions .ROUTE 06/17/20 .COMPLEX #30 tab levothyroxine 100 mcg tablet See Rx Instructions .ROUTE 07/23/20 .COMPLEX #30 tab levofloxacin 750 mg PO DAILY 10 Days tab 09/16/20 metronidazole [Flagyl] 500 mg PO TID 10 Days #30 tab 09/16/20 tramadol [Ultram] 50 mg PO Q6H PRN #10 tab 09/16/20 Allergies Allergy/AdvReac Type Severity Reaction Status Date / Time codeine [CODEINE] Allergy Severe ANAPHYLAXIS Verified 05/01/20 15:30 Penicillins [PENICILLINS] Allergy Severe ANAPHYLAXIS Verified 05/01/20 15:30 shellfish derived Allergy Severe CRAB, Verified 05/01/20 15:30 [SHELLFISH DERIVED] SWELLING AIRWAIR CLOSED latex [LATEX] Allergy Mild rash Verified 05/01/20 15:30 Review of Systems Review of Systems ROS Unobtainable: All systems reviewed & are unremarkable except as noted in HPI and below Patient History Medical History Anxiety Cervical spine disease Chronic back pain Chronic pain Depression Dizziness Encounter for smoking cessation counseling Fatigue Greater trochanteric bursitis of right hip Greater trochanteric bursitis of right hip Hypothyroidism Insomnia disorder, with non-sleep disorder mental comorbidity Lumbar spine pain Psoas muscle strain Somatic dysfunction of abdominal region Tobacco abuse disorder Surgical History Status post hysterectomy Social History marital status: Smoking Status: Current every day smoker alcohol intake: current (2 + A DAY ) substance use type: does not use Smoking Status: Current every day smoker alcohol intake frequency: 0-2 drinks per day Substance Use Type: does not use Exam Narrative Exam Narrative: GENERAL: Alert and oriented x three, well-nourished female in mild distress. HEENT: Head normocephalic, atraumatic, EOMI, pupils reactive, face symmetric, moist mucous membranes NECK: Supple, full range of motion CARDIOVASCULAR: Regular rate and rhythm without murmurs, rubs or gallops. RESPIRATORY: Breath sounds equal bilaterally, no wheezes rales or rhonchi. ABDOMEN: Soft, left lower quadrant tenderness which is moderate, Normoactive bowel sounds all 4 quadrants. No guarding or rebound, rigidity, no mass, nondistended. No pulsatile mass or bruit. : No CVA tenderness EXTREMITIES: Normal range of motion, no clubbing or edema. Neurovascularly intact NEUROLOGICAL: Cranial nerves II through XII grossly intact. Moving all extr emities SKIN: Warm, dry, no petechiae, no rashes or lesions. Initial Vital Signs Initial Vital Signs: Vital Signs Temperature 98.8 F 09/16/20 15:43 Pulse Rate 85 09/16/20 15:43 Respiratory Rate 22 09/16/20 15:43 Blood Pressure 146/86 H 09/16/20 15:43 Pulse Oximetry 97 09/16/20 15:43 Course Orders Ordered: ED Orders 09/16/20 15:43 EKG-12 Lead Stat 09/16/20 15:45 Complete Blood Count AUTO DIFF Stat Comprehensive Metabolic Panel Stat Lipase Stat Partial Thromboplastin Time Stat Prothrombin Time INR Stat Vital Signs Vital signs: Vital Signs - 8 hr 09/16/20 15:43 09/16/20 16:38 09/16/20 16:39 Temperature 98.8 F Pulse Rate 85 82 81 Respiratory Rate 22 16 Blood Pressure 146/86 H 120/77 Pulse Oximetry 97 97 97 MDM - Abdominal Pain Lab Data Attestation: I reviewed the patient's lab results. Result diagrams: 09/16/20 15:45 09/16/20 15:45 Labs: Lab Results 09/16/20 09/16/20 09/16/20 Range/Units 15:45 15:45 15:45 WBC 4.2 L (4.5-11.0) X10^3/uL RBC 4.39 (4.0-5.2) X10^6/uL Hgb 13.9 (12.0-16.0) g/dL Hct 41.0 (36-46) % MCV 93.3 (80-100) fL MCH 31.6 (26-34) PG MCHC 33.8 (30-36) % RDW 12.4 (11.6-14.8) % Plt Count 239 (150-400) X10^3/uL Neut % (Auto) 41.5 L (50-75) % Lymph % (Auto) 37.6 (25-40) % [place] % (Auto) 16.1 H (3-14) % Eos % (Auto) 3.7 (2-4) % Baso % (Auto) 1.1 (0-2) % Neut # (Auto) 1800 (2187-3386) /uL Lymph # (Auto) 1600 (1908-2820) /uL [place] # (Auto) 700 (0-900) /uL Eos # (Auto) 200 (0-450) /uL Baso # (Auto) 0 (0-100) /uL PT 13.0 H (10.1-12.7) SECONDS INR 1.1 (0.9-1.3) APTT 32 (26.4-36.2) SECONDS Sodium 137 (137-145) mmol/L Potassium 4.0 (3.4-5.1) mmol/L Chloride 104 (98-107) mmol/L Carbon Dioxide 30 (22-32) mmol/L BUN 15 (7-17) mg/dL Creatinine 0.78 (0.52-1.04) mg/dL Estimated GFR > 60.0 (>60) mL/min BUN/Creatinine Ratio 19.2 (6-22) Glucose 88 (70-100) mg/dL Calcium 9.2 (8.4-10.2) mg/dL Total Bilirubin 0.3 (0.2-1.3) mg/dL AST 28 (14-36) IU/L ALT 18 (<35) IU/L Alkaline Phosphatase 92 (38-126) U/L Total Protein 9.9 H* (6.3-8.2) g/dL Albumin 4.2 (3.5-5.0) g/dL Globulin 5.7 H (1.7-4.1) g/dL Albumin/Globulin Ratio 0.7 L (1.0-2.8) Lipase 80 (23-300) U/L Point of care testing: Urine Dip Bedside Urine Glucose Negative Bedside Urine Bilirubin - Negative Bedside Urine Ketone - Negative Urine Specific [place] 1.020 Bedside Urine Occult Blood - Negative Bedside Urine pH 6.0 Bedside Urine Protein - Negative Bedside Urine Urobilinogen - Negative Bedside Urine Nitrite - Negative Bedside Urine Leukocytes - Negative Esterase ECG Data Attestation: I personally reviewed and interpreted this ECG as follows: Interpretation: Normal sinus rhythm rate of 81, AR interval 146, QRS 82 and QTC of 448 with a Q-wave present in lead 3. No other ST elevation depression appreciated. MDM Narrative Medical decision making narrative: Discussed with patient I suspect she may have diverticulitis she is specifically tender in her left lower quadrant. Her urine does not show any clear signs of infection, her labs show a mild leukopenia which could be related to infection, labs show elevated protein but normal LFTs and abdominal labs. Discussed patient's total protein findings today. We did discuss getting additional imaging and my suspicion is that she has diverticulitis. Patient defers CT imaging she feels comfortable starting oral antibiotics and following up in the short term with her physician. Strict return precautions were given. Patient was given a short course of pain medication. All questions were answered. Discharge Plan Departure Patient Disposition: Home Clinical Impression: Abdominal pain Instructions: DI for Diverticulitis Activity Restrictions/Additional Instructions: I suspect you have diverticulitis. As we have not performed a CT scan today I do ask that you follow-up in the next 24-48 hours for recheck if your symptoms are not improving. Take antibiotics until completely gone. Do not drink alcohol while taking Flagyl or metronidazole. This will make you throw up. You may take pain medication as prescribed, this medication can make you sleepy do not drive, perform hazardous activities or make any major decisions while taking it. This medication can make you constipated, take a stool softener if you are not continuing to have loose or soft stools. Return to the ER for fevers, rapidly worsening or new pain, persistent vomiting, black or bloody stools, lightheadedness or passing out, new chest pain or shortness of breath or other new or concerning symptoms. Prescriptions: New tramadol [Ultram] 50 mg tablet 50 mg PO Q6H PRN (Reason: pain) Qty: 10 RF: 0 metronidazole [Flagyl] 500 mg tablet 500 mg PO TID 10 Days Qty: 30 RF: 0 levofloxacin 750 mg tablet 750 mg PO DAILY 10 Days RF: 0 No Action paroxetine HCl 20 mg tablet See Rx Instructions .ROUTE .COMPLEX Qty: 60 RF: 0 gabapentin 300 mg capsule See Rx Instructions .ROUTE .COMPLEX Qty: 180 RF: 5 estradiol 1 mg tablet See Rx Instructions .ROUTE .COMPLEX Qty: 30 RF: 0 levothyroxine 100 mcg tablet See Rx Instructions .ROUTE .COMPLEX Qty: 30 RF: 5 gabapentin 100 mg capsule 100 mg PO BID Qty: 60 RF: 1 Referrals: Mickey Falcon DO [Primary Care Provider] -
[2020-09-16 16:38] VITALS: PULSE 82; O2SAT 97
[2020-09-16 16:39] VITALS: BP 120/77; PULSE 81; RESP 16; O2SAT 97
== END 2020-09-16 17:00 | disposition home or self-care (01) ==
PROVIDERS: Emergency Provider Emergency Medicine; PCP Family Medicine
DX: R10.32 Left lower quadrant pain (principal); R50.9 Fever, unspecified; R11.2 Nausea with vomiting, unspecified; E03.9 Hypothyroidism, unspecified
CPT/HCPCS: 36415; 80053; 81003; 83690; 85025; 85610; 85730; 93005; 99283; 99284

== ENCOUNTER → 2020-11-13 12:29 | Outpatient (CLI) | payer OTHER, MEDICAID, SELFPAY ==
[2020-11-13] MEDS: COVID-19 VACC #1, MRNA(MOD) 100 MCG/0.5 ML VIAL IM (12:34)
== END ==
PROVIDERS: PCP Family Medicine; Visit Provider Internal Medicine
DX: Z23 Encounter for immunization (principal)
CPT/HCPCS: 0011A; 91301

== ENCOUNTER → 2020-12-12 11:13 | Outpatient (CLI) | payer OTHER, MEDICAID, SELFPAY ==
[2020-12-12] MEDS: COVID-19 VACC #2, MRNA(MOD) 100 MCG/0.5 ML VIAL IM (11:22)
== END ==
PROVIDERS: PCP Family Medicine; Visit Provider Internal Medicine
DX: Z23 Encounter for immunization (principal)
CPT/HCPCS: 0012A; 91301

== ENCOUNTER 2021-05-06 10:05 | Emergency (ER) | payer OTHER, MEDICAID, SELFPAY ==
[2021-05-06 10:12] VITALS: BP 135/74; PULSE 102; RESP 16; TEMP 35.9; O2SAT 99; BMI 28.0
--- NOTE | 2021-05-06 10:20 | ED.DIZZY ---
HPI - Dizziness General Chief Complaint: Dizziness Stated Complaint: dizzy spells, nausea Time Seen by Provider: 05/06/21 10:12 Source: patient Mode of arrival: Ambulatory History of Present Illness HPI Narrative: Patient had sudden onset of dizziness 2 weeks ago while walking to the car. [place] like she was drifting towards the right. No weakness on 1 side of the body. No slurred speech or facial droop. No numbness or tingling. Has nausea but no vomiting. No headache. No vision changes. This Thursday Has appointment and residents clinic in [place] with [facility]. On Thursday. Has not tried any antiemetics or medications for dizziness. Denies any headache. No history of heart attack strokes or diabetes or brain aneurysms Related Data Previous Rx's Medication Instructions Recorded paroxetine HCl 20 mg tablet See Rx Instructions .ROUTE 04/09/20 .COMPLEX #60 tab gabapentin 300 mg capsule See Rx Instructions .ROUTE 04/24/20 .COMPLEX #180 cap gabapentin 100 mg capsule 100 mg PO BID #60 cap 05/01/20 estradiol 1 mg tablet See Rx Instructions .ROUTE 06/17/20 .COMPLEX #30 tab levothyroxine 100 mcg tablet See Rx Instructions .ROUTE 07/23/20 .COMPLEX #30 tab tramadol 50 mg tablet (Ultram) 50 mg PO Q6H PRN #10 tab 09/16/20 meclizine 25 mg tablet 25 mg PO TID PRN #21 tab 05/06/21 meclizine 25 mg tablet 25 mg PO TID PRN #21 tab 05/06/21 Allergies Allergy/AdvReac Type Severity Reaction Status Date / Time codeine [CODEINE] Allergy Severe ANAPHYLAXIS Verified 05/06/21 10:14 Penicillins [PENICILLINS] Allergy Severe ANAPHYLAXIS Verified 05/06/21 10:14 shellfish derived Allergy Severe CRAB, Verified 05/06/21 10:14 [SHELLFISH DERIVED] SWELLING AIRWAIR CLOSED latex [LATEX] Allergy Mild rash Verified 05/06/21 10:14 Review of Systems Review of Systems Narrative: GENERAL: Denies chills, fatigue, malaise, fever, sweats. HEENT: Denies sinus pain, ear pain, sore throat RESPIRATORY: Denies dyspnea, cough CARDIOVASCULAR: Denies chest pain, palpitations GASTROINTESTINAL: Complaint nausea, denies vomiting, abdominal pain : Denies dysuria, frequency, hematuria MUSCULOSKELETAL: denies muscle or bony pain SKIN: Denies rash, skin lesions NEUROLOGIC: Denies weakness, numbness complaints dizziness, no headache, no slurred speech, no facial droop, no confusion ROS Unobtainable: All systems reviewed & are unremarkable except as noted in HPI and below Patient History Medical History Anxiety Cervical spine disease Chronic back pain Chronic pain Depression Dizziness Encounter for smoking cessation counseling Fatigue Greater trochanteric bursitis of right hip Greater trochanteric bursitis of right hip Hypothyroidism Insomnia disorder, with non-sleep disorder mental comorbidity Lumbar spine pain Psoas muscle strain Somatic dysfunction of abdominal region Tobacco abuse disorder Surgical History Status post hysterectomy Social History marital status: Smoking Status: Current every day smoker alcohol intake: current (2 + A DAY ) substance use type: does not use Smoking Status: Current every day smoker alcohol intake frequency: 0-2 drinks per day Substance Use Type: does not use Exam Narrative Exam Narrative: GENERAL: in no distress, not toxic not dyspneic HEAD: Normocephalic. EYES: Pupils equal round No scleral icterus. No injection no discharge ENT: Mucous membranes moist. NECK: Trachea midline. CARDIOVASCULAR: Regular rate and rhythm without murmurs RESPIRATORY: Clear to auscultation. Breath sounds equal bilaterally. No wheezes, rales, or rhonchi. GASTROINTESTINAL: Abdomen soft, non-tender EXTREMITIES: No gross deformities. BACK: No flank tenderness. NEURO: AOx4. 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 [id number] intact. Slight horizontal nystagmus SKIN: Warm and dry PSYCH: Not anxious, is cooperative Initial Vital Signs Initial Vital Signs: Vital Signs Temperature 96.7 F L 05/06/21 10:12 Pulse Rate 102 H 05/06/21 10:12 Respiratory Rate 16 05/06/21 10:12 Blood Pressure 135/74 05/06/21 10:12 Pulse Oximetry 99 05/06/21 10:12 Scores NIH Stroke Scale Level of Conciousness: Alert, keenly responsive Ask month/age: Answers both questions correctly. Open/close eyes, close hand: Performs both tasks correctly Best gaze horizontal: Normal Visual madrigal: No visual loss Facial palsy: Normal symetrical movement Left arm drift: No drift for full 10 sec Right arm drift: No drift for full 10 sec Left leg drift: No drift for full 5 sec Right leg drift: No drift for full 5 sec Limb ataxia: Absent Sensory on face/arms/legs: Normal, no sensory loss Best language: No aphasia, normal Dysarthria: Normal Extinction or inattention: No abnormality Total NIH Stroke scale score: 0 Course Course Course Narrative: No new issues during course of stay Orders Ordered: ED Orders 05/06/21 10:19 CT head/brain wo con Stat 05/06/21 10:37 Complete Blood Count AUTO DIFF Stat Comprehensive Metabolic Panel Stat Troponin I Stat Discontinued Medications Sodium Chloride (Normal Saline 0.9%) 1,000 mls @ 1,000 mls/hr IV BOLUS ONE Stop: 05/06/21 11:18 Last Infusion: 05/06/21 11:42 Dose: 0 mls/hr Documented by: Admin: 05/06/21 10:27 Dose: 1,000 mls/hr Documented by: NICOLE Meclizine HCl (Meclizine Hcl 12.5 Mg Tablet) 25 mg PO NOW ONE Stop: 05/06/21 10:19 Last Admin: 05/06/21 10:27 Dose: 25 mg Documented by: NICOLE Ondansetron HCl (Ondansetron 4 Mg/2 Ml Inj) 4 mg IV NOW ONE Stop: 05/06/21 10:19 Last Admin: 05/06/21 10:27 Dose: 4 mg Documented by: NICOLE Reevaluation(s) Reevaluation #1: Symptoms resolved with IV fluids as well as Antivert. Denies any dizziness at this time. Feels much better. Reviewed results with patient. Time: 11:33 Vital Signs Vital signs: Vital Signs - 8 hr 05/06/21 10:32 05/06/21 11:00 05/06/21 11:30 Pulse Rate 89 85 86 Respiratory Rate 17 21 Blood Pressure Pulse Oximetry 98 97 97 05/06/21 11:48 Pulse Rate Respiratory Rate Blood Pressure 118/71 Pulse Oximetry MDM - Dizziness Differential Diagnosis Differential diagnosis: Likely benign paroxysmal positional vertigo, cerebrovascular accident, acute vestibular neuronitis and transient cerebral ischemia Lab Data Result diagrams: 05/06/21 10:37 05/06/21 10:37 Labs: Lab Results 05/06/21 05/06/21 Range/Units 10:37 10:37 WBC 4.6 (4.5-11.0) X10^3/uL RBC 3.87 L (4.0-5.2) X10^6/uL Hgb 12.5 (12.0-16.0) g/dL Hct 36.6 (36-46) % MCV 94.7 (80-100) fL MCH 32.3 (26-34) PG MCHC 34.1 (30-36) % RDW 13.2 (11.6-14.8) % Plt Count 214 (150-400) X10^3/uL Neut % (Auto) 54.2 (50-75) % Lymph % (Auto) 31.6 (25-40) % [place] % (Auto) 10.3 (3-14) % Eos % (Auto) 2.9 (2-4) % Baso % (Auto) 1.0 (0-2) % Neut # (Auto) 2500 (5672-8307) /uL Lymph # (Auto) 1400 (8949-7028) /uL [place] # (Auto) 500 (0-900) /uL Eos # (Auto) 100 (0-450) /uL Baso # (Auto) 0 (0-100) /uL Sodium 135 L (137-145) mmol/L Potassium 4.1 (3.4-5.1) mmol/L Chloride 109 H (98-107) mmol/L Carbon Dioxide 22 (22-32) mmol/L BUN 8 (7-17) mg/dL Creatinine 0.56 (0.52-1.04) mg/dL Estimated GFR > 60.0 (>60) mL/min BUN/Creatinine Ratio 14.3 (6-22) Glucose 90 (70-100) mg/dL Calcium 8.6 (8.4-10.2) mg/dL Total Bilirubin 0.4 (0.2-1.3) mg/dL AST 27 (14-36) IU/L ALT 17 (<35) IU/L Alkaline Phosphatase 91 (38-126) U/L Troponin I < 0.012 (0.01-0.034) ng/mL Total Protein 8.7 H (6.3-8.2) g/dL Albumin 3.9 (3.5-5.0) g/dL Globulin 4.8 H (1.7-4.1) g/dL Albumin/Globulin Ratio 0.8 L (1.0-2.8) Imaging Data CT scan - head: Radiologist's Impression: [address] [id number] Scan ReportSigned Patient: Alisha Hahn MMR#: [id number]: [id number]:[id number]/Sex: 51 / FDate of Service: 05/06/21Loc: EDAccession Number: [id number] Procedure: CT head/brain wo con Ordering Provider: Nakul Suero MD PROCEDURE: CT HEAD/BRAIN WO CON INDICATIONS: dizzy TECHNIQUE: Noncontrast 4.5 mm thick angled axial sections acquired from the foramen magnum to the vertex, with coronal and sagittal reformats. For radiation dose reduction, the following was used: automated exposure control, adjustment of mA and/or kV according to patient size. COMPARISON: None. FINDINGS: Image quality: Excellent. CSF spaces: Basal cisterns are patent. No extra-axial fluid collections. Ventricles are normal in size and shape. Brain: No midline shift. No intracranial masses or hemorrhage. Smith-white matter interface is normal. Skull and face: Calvarium and visualized facial bones are intact, without suspicious lesions. Sinuses: Visualized sinuses and mastoids are clear. IMPRESSION: 1. No acute intracranial process. Dictated by: Mariana Kim M.D. on 05/06/2021 at 10:33 Approved by: Mariana Kim M.D. on 05/06/2021 at 10:35 ECG Data Interpretation: Normal sinus rhythm, no ST elevation or depression. Rate 95. MDM Narrative Medical decision making narrative: Appropriate for discharge home. Exam and imaging and laboratory results reassuring. Symptoms resolved with conservative treatment with IV fluids and Antivert. No other neuro deficits. Clinically likely vertigo. No angiogram or MRI indicated this time. Ongoing for over 2 weeks. Has follow-up in 2 days with her primary. Return precautions reviewed with patient. She agrees with treatment plan. Discharge Plan Departure Patient Disposition: Home Clinical Impression: Vertigo Instructions: DI for Vertigo Activity Restrictions/Additional Instructions: Return if worsening questions or concerns. See family doctor in 2 days as scheduled. Prescription for Antivert has been provided for you. Prescription was not available for transmission electronically Prescriptions: New meclizine 25 mg tablet 25 mg PO TID PRN (Reason: dizziness) Qty: 21 RF: 0 meclizine 25 mg tablet 25 mg PO TID PRN (Reason: dizziness) Qty: 21 RF: 0 No Action paroxetine HCl 20 mg tablet See Rx Instructions .ROUTE .COMPLEX Qty: 60 RF: 0 gabapentin 300 mg capsule See Rx Instructions .ROUTE .COMPLEX Qty: 180 RF: 5 estradiol 1 mg tablet See Rx Instructions .ROUTE .COMPLEX Qty: 30 RF: 0 levothyroxine 100 mcg tablet See Rx Instructions .ROUTE .COMPLEX Qty: 30 RF: 5 gabapentin 100 mg capsule 100 mg PO BID Qty: 60 RF: 1 tramadol [Ultram] 50 mg tablet 50 mg PO Q6H PRN (Reason: pain) Qty: 10 RF: 0 Referrals: Mickey Falcon DO [Primary Care Provider] -
[2021-05-06] MEDS: SODIUM CHLORIDE 0.9% 1,000 ML 1000 ML IV (10:27)
[2021-05-06] MEDS: MECLIZINE HCL 12.5 MG TABLET 25 MG PO (10:27)
[2021-05-06] MEDS: ONDANSETRON 4 MG/2 ML INJ IV (10:27)
[2021-05-06 10:32] VITALS: PULSE 89; O2SAT 98
[2021-05-06 10:52] LABS: Add Manual Diff / Slide Review NO; Basophils Absolute Auto 0 /uL (0-100); Eosinophils Absolute Auto 100 /uL (0-450); Eosinophils Percent Auto 2.9 % (2-4); Hematocrit 36.6 % (36-46); Hemoglobin 12.5 g/dL (12.0-16.0); Lymphocytes Absolute Auto 1400 /uL (1100-4500); Lymphocytes Percent Auto 31.6 % (25-40); Mean Corpuscular HGB Conc 34.1 % (30-36); Mean Corpuscular Hemoglobin 32.3 PG (26-34); Mean Corpuscular Volume 94.7 fL (80-100); Monocytes Absolute Auto 500 /uL (0-900); Monocytes Percent Auto 10.3 % (3-14); Neutrophils Absolute Auto 2500 /uL (1500-7000); Neutrophils Percent Auto 54.2 % (50-75); Platelet Count 214 X10^3/uL (150-400); Red Blood Cell Count 3.87 X10^6/uL (4.0-5.2); Red Cell Distribution Width 13.2 % (11.6-14.8); White Blood Cell Count 4.6 X10^3/uL (4.5-11.0)
[2021-05-06 11:00] VITALS: PULSE 85; RESP 17; O2SAT 97
[2021-05-06 11:02] LABS: Alanine Aminotransferase 17 IU/L (<35); Albumin 3.9 g/dL (3.5-5.0); Albumin Globulin Ratio 0.8 (1.0-2.8); Alkaline Phosphatase 91 U/L (38-126); Aspartate Aminotransferase 27 IU/L (14-36); BUN Creatinine Ratio 14.3 (6-22); Bilirubin Total 0.4 mg/dL (0.2-1.3); Blood Urea Nitrogen 8 mg/dL (7-17); Calcium 8.6 mg/dL (8.4-10.2); Carbon Dioxide 22 mmol/L (22-32); Chloride 109 mmol/L (98-107); Estimated Glomerular Filt Rate > 60.0 mL/min (>60); Globulin 4.8 g/dL (1.7-4.1); Glucose 90 mg/dL (70-100); HEMOLYSIS < 15 (0-50); Potassium 4.1 mmol/L (3.4-5.1); Sodium 135 mmol/L (137-145); Total Protein 8.7 g/dL (6.3-8.2)
[2021-05-06 11:12] LABS: Troponin I < 0.012 ng/mL (0.01-0.034)
[2021-05-06 11:30] VITALS: PULSE 86; RESP 21; O2SAT 97
[2021-05-06 11:48] VITALS: BP 118/71
== END 2021-05-06 11:48 | disposition home or self-care (01) ==
PROVIDERS: Emergency Provider Emergency Medicine; PCP Family Medicine
DX: R42 Dizziness and giddiness (principal); R11.2 Nausea with vomiting, unspecified
CPT/HCPCS: 36415; 70450; 80053; 84484; 85025; 93005; 93010; 96361; 96374; 99284; J2405

== ENCOUNTER 2021-07-19 16:35 | Emergency (ER) | payer OTHER, MEDICAID, SELFPAY ==
[2021-07-19 16:58] VITALS: BP 138/83; PULSE 92; RESP 12; TEMP 37.1; O2SAT 98; BMI 29.2
== END 2021-07-19 17:51 | disposition left against medical advice (07) ==
PROVIDERS: Emergency Provider Emergency Medicine; PCP Student in an Organized Health Care Education/Training Program
DX: Z53.21 Procedure and treatment not carried out due to patient leaving prior to being seen by health care provider (principal)
CPT/HCPCS: 99281

== ENCOUNTER 2021-08-15 05:41 | Emergency (ER) | payer OTHER, MEDICAID, SELFPAY ==
[2021-08-15 05:45] VITALS: BP 152/90; PULSE 90; RESP 18; O2SAT 100; BMI 28.3
--- NOTE | 2021-08-15 05:49 | ED_ITS ---
HPI - General Adult General Chief complaint: Skin/Abscess/Foreign Body Stated complaint: rash on head/shingles?? x2 days Time Seen by Provider: 08/15/21 05:49 Source: patient Mode of arrival: Ambulatory History of Present Illness HPI narrative: Patient is a 51-year-old female here for evaluation of approximately 2 days of a rash to the back right side of her head that extends up to the top of her head. She states that it is very painful and itching. Has not tried anything for it prior to arrival. No new exposures. No fevers. Related Data Previous Rx's Medication Instructions Recorded paroxetine HCl 20 mg tablet See Rx Instructions .ROUTE 04/09/20 .COMPLEX #60 tab gabapentin 300 mg capsule See Rx Instructions .ROUTE 04/24/20 .COMPLEX #180 cap gabapentin 100 mg capsule 100 mg PO BID #60 cap 05/01/20 estradiol 1 mg tablet See Rx Instructions .ROUTE 06/17/20 .COMPLEX #30 tab levothyroxine 100 mcg tablet See Rx Instructions .ROUTE 07/23/20 .COMPLEX #30 tab tramadol 50 mg tablet (Ultram) 50 mg PO Q6H PRN #10 tab 09/16/20 meclizine 25 mg tablet 25 mg PO TID PRN #21 tab 05/06/21 meclizine 25 mg tablet 25 mg PO TID PRN #21 tab 05/06/21 acyclovir 800 mg tablet 800 mg PO 5XD 7 Days #35 tab 08/15/21 hydrocodone 5 mg-acetaminophen 325 1 tab PO Q4-6H PRN #10 tab 08/15/21 mg tablet Allergies Allergy/AdvReac Type Severity Reaction Status Date / Time codeine [CODEINE] Allergy Severe ANAPHYLAXIS Verified 07/19/21 16:58 Penicillins [PENICILLINS] Allergy Severe ANAPHYLAXIS Verified 07/19/21 16:58 shellfish derived Allergy Severe CRAB, Verified 07/19/21 16:58 [SHELLFISH DERIVED] SWELLING AIRWAIR CLOSED latex [LATEX] Allergy Mild rash Verified 07/19/21 16:58 Review of Systems Constitutional Constitutional: Denies fever(s) and Reports headache(s) Eyes Eyes: Denies change in vision ENT Ears, Nose, Mouth, and Throat: Reports headache(s) Respiratory Respiratory: Reports as per HPI Integumentary/Breasts Skin/Breast: Reports rash Neurologic Neurologic: Reports headache(s) Hematologic/Lymphatic On Anticoagulants: No Allergic/Immunologic Allergic/Immunologic: Reports system reviewed and no additional complaints, except as documented Patient History Medical History Anxiety Cervical spine disease Chronic back pain Chronic pain Depression Dizziness Encounter for smoking cessation counseling Fatigue Greater trochanteric bursitis of right hip Greater trochanteric bursitis of right hip Hypothyroidism Insomnia disorder, with non-sleep disorder mental comorbidity Lumbar spine pain Psoas muscle strain Somatic dysfunction of abdominal region Tobacco abuse disorder Surgical History Status post hysterectomy Social History marital status: Smoking Status: Current every day smoker alcohol intake: current (2 + A DAY ) substance use type: does not use Smoking Status: Current every day smoker alcohol intake frequency: 0-2 drinks per day Substance Use Type: does not use Exam Initial Vital Signs Initial Vital Signs: Vital Signs Pulse Rate 90 08/15/21 05:45 Respiratory Rate 18 08/15/21 05:45 Blood Pressure 152/90 H 08/15/21 05:45 Pulse Oximetry 100 08/15/21 05:45 Const General: cooperative and healthy appearing HENCT Head: scalp lesion (Rash right occipital region) Ears: TM's normal bilaterally Face and sinus: normal facial exam Mouth: oral mucosae normal Skin Other: Patient does have a vesicular rash that extends along the occipital nerve region of the right-sided scalp. It does extend up into the hairline. Neuro General: patient alert, patient awake, patient oriented x3 and moves all ex tremities Extrem General: normal to inspection Psych Appearance: grossly normal and well kempt Course Vital Signs Vital signs: Vital Signs - 8 hr 08/15/21 05:45 Pulse Rate 90 Respiratory Rate 18 Blood Pressure 152/90 H Pulse Oximetry 100 Medical Decision Making MDM Narrative Medical decision making narrative: Patient has a rash on the right posterior portion of the scalp that is vesicular and has a very consistent appearance with shingles. It does present along the occipital nerve distribution. She has had symptoms for approximately 2 days. Was sent home with acyclovir. Will also give a prescription for pain medication. She was given care instructions and return precautions. She expressed understanding and agreement. Discharge Plan Departure Patient Disposition: Home Clinical Impression: Shingles Instructions: Shingles (Herpes Zoster) (Alternative Therapy), DI for Shingles Activity Restrictions/Additional Instructions: Continue to take all of your medications as directed. He can shower like normal. You can use soap and water and she to. Recommend you contact your primary doctor for a follow-up within the next week. A medicine called acyclovir was transmitted to safely. Please pick it up when they open today and start taking it as directed. Also prescribed pain medication. Use it as needed. Return to the emergency department for any new or worsening symptoms Prescriptions: New acyclovir 800 mg tablet 800 mg PO 5XD 7 Days Qty: 35 0RF Rx Instructions: space evenly during waking hours hydrocodone-acetaminophen 5-325 mg tablet 1 tab PO Q4-6H PRN (Reason: pain) Qty: 10 0RF No Action paroxetine HCl 20 mg tablet See Rx Instructions .ROUTE .COMPLEX Qty: 60 0RF Dose Instruction: Take two tablets by mouth daily. Rx Instructions: Take two tablets by mouth daily. gabapentin 300 mg capsule See Rx Instructions .ROUTE .COMPLEX Qty: 180 5RF Dose Instruction: TAKE TWO CAPSULES BY MOUTH THREE TIMES DAILY FOR PAIN Rx Instructions: TAKE TWO CAPSULES BY MOUTH THREE TIMES DAILY FOR PAIN estradiol 1 mg tablet See Rx Instructions .ROUTE .COMPLEX Qty: 30 0RF Dose Instruction: Take one tablet by mouth one time daily. Rx Instructions: Take one tablet by mouth one time daily. levothyroxine 100 mcg tablet See Rx Instructions .ROUTE .COMPLEX Qty: 30 5RF Dose Instruction: TAKE ONE TABLET BY MOUTH EVERY MORNING Rx Instructions: TAKE ONE TABLET BY MOUTH EVERY MORNING gabapentin 100 mg capsule 100 mg PO BID Qty: 60 1RF meclizine 25 mg tablet 25 mg PO TID PRN (Reason: dizziness) Qty: 21 0RF meclizine 25 mg tablet 25 mg PO TID PRN (Reason: dizziness) Qty: 21 0RF tramadol [Ultram] 50 mg tablet 50 mg PO Q6H PRN (Reason: pain) Qty: 10 0RF Referrals: Yonatan Bacon DO [Primary Care Provider] -
== END 2021-08-15 06:06 | disposition home or self-care (01) ==
PROVIDERS: Emergency Provider Emergency Medicine; PCP Student in an Organized Health Care Education/Training Program
DX: B02.9 Zoster without complications (principal); F17.200 Nicotine dependence, unspecified, uncomplicated
CPT/HCPCS: 99281

== ENCOUNTER 2022-06-03 08:35 | Emergency (ER) | payer OTHER, MEDICAID, SELFPAY ==
[2022-06-03] VITALS (16 sets, daily range): BP systolic 125–159; BP diastolic 73–91; PULSE 70–87; RESP 18; TEMP 36.7; O2SAT 99–100; BMI 25.7
[2022-06-03 09:16] LABS: Add Manual Diff / Slide Review NO; Basophils Absolute Auto 100 /uL (0-100); Basophils Percent Auto 0.9 % (0-2); Eosinophils Absolute Auto 300 /uL (0-450); Eosinophils Percent Auto 5.5 % (2-4); Hemoglobin 13.8 g/dL (12.0-16.0); Lymphocytes Absolute Auto 1300 /uL (1100-4500); Lymphocytes Percent Auto 23.5 % (25-40); Mean Corpuscular HGB Conc 34.6 % (30-36); Mean Corpuscular Hemoglobin 32.2 PG (26-34); Mean Corpuscular Volume 93.1 fL (80-100); Monocytes Absolute Auto 700 /uL (0-900); Monocytes Percent Auto 13.2 % (3-14); Neutrophils Absolute Auto 3100 /uL (1500-7000); Neutrophils Percent Auto 56.9 % (50-75); Platelet Count 226 X10^3/uL (150-400); Red Cell Distribution Width 12.8 % (11.6-14.8); White Blood Cell Count 5.5 X10^3/uL (4.5-11.0)
[2022-06-03 09:25] LABS: Alanine Aminotransferase 17 IU/L (<35); Albumin 3.9 g/dL (3.5-5.0); Albumin Globulin Ratio 0.7 (1.0-2.8); Alkaline Phosphatase 93 U/L (38-126); Aspartate Aminotransferase 28 IU/L (14-36); BUN Creatinine Ratio 13.9 (6-22); Bilirubin Total 0.8 mg/dL (0.2-1.3); Blood Urea Nitrogen 11 mg/dL (7-17); Calcium 8.5 mg/dL (8.4-10.2); Carbon Dioxide 19 mmol/L (22-32); Chloride 101 mmol/L (98-107); Estimated Glomerular Filt Rate > 60 mL/min (>60); Globulin 5.3 g/dL (1.7-4.1); Glucose 95 mg/dL (70-100); HEMOLYSIS < 15 (0-50); Lipase 40 U/L (23-300); Potassium 4.2 mmol/L (3.4-5.1); Sodium 131 mmol/L (137-145); Total Protein 9.2 g/dL (6.3-8.2)
--- NOTE | 2022-06-03 09:26 | ED_ITS ---
HPI - Abdominal Pain General Chief Complaint: Abdominal Pain Stated Complaint: Severe abd pain- no food since Thursday Time Seen by Provider: 06/03/22 09:25 Source: patient Mode of arrival: Ambulatory Limitations: no limitations History of Present Illness HPI narrative: This is a 52-year-old female with hypothyroidism, depression, chronic tobacco use and sciatica. Patient states she developed epigastric and bilateral lower abdominal pain starting ThursdayMay 31 she states it has been persistent since then and increasing. She denies back or flank pain. She denies fevers or chills. She denies nausea or vomiting but states she is had no appetite and has not had any solids since Thursday. She has been drinking water without issue. She tried to sit a coffee this morning at 5:30 a.m. which was her last intake which upset her stomach. She started having diarrhea last night she states it is brownish liquidy without any melena or hematochezia. She denies any dysuria, urgency or frequency, no vaginal bleeding or discharge. She notes she is had diverticulitis about 10 years ago but she states this pain feels different. Patient states she is had both her ovaries removed she does not know if she has her uterus. She states she does have her gallbladder and appendix. She states penicillin makes her throat swell, she does continue to smoke tobacco, denies alcohol or recreational drugs. She does not have a primary care currently. Related Data Previous Rx's Medication Instructions Recorded paroxetine HCl 20 mg tablet See Rx Instructions .Route 04/09/20 .COMPLEX #60 tabs gabapentin 300 mg capsule See Rx Instructions .Route 04/24/20 .COMPLEX #180 caps gabapentin 100 mg capsule 100 mg PO BID #60 caps 05/01/20 estradiol 1 mg tablet See Rx Instructions .Route 06/17/20 .COMPLEX #30 tabs levothyroxine 100 mcg tablet See Rx Instructions .Route 07/23/20 .COMPLEX #30 tabs tramadol 50 mg tablet (Ultram) 50 mg PO Q6H PRN pain #10 tabs 09/16/20 meclizine 25 mg tablet 25 mg PO TID PRN dizziness #21 tabs 05/06/21 meclizine 25 mg tablet 25 mg PO TID PRN dizziness #21 tabs 05/06/21 hydrocodone 5 mg-acetaminophen 325 1 tab PO Q4-6H PRN pain #10 tabs 08/15/21 mg tablet amoxicillin 875 mg-potassium 1 tab PO BID #20 tabs 06/03/22 clavulanate 125 mg tablet hydrocodone 5 mg-acetaminophen 325 1 tab PO Q6H PRN pain #10 tabs 06/03/22 mg tablet Allergies Allergy/AdvReac Type Severity Reaction Status Date / Time codeine [CODEINE] Allergy Severe ANAPHYLAXIS Verified 07/19/21 16:58 Penicillins [PENICILLINS] Allergy Severe ANAPHYLAXIS Verified 07/19/21 16:58 shellfish derived Allergy Severe CRAB, Verified 07/19/21 16:58 [SHELLFISH DERIVED] SWELLING AIRWAIR CLOSED latex [LATEX] Allergy Mild rash Verified 07/19/21 16:58 Review of Systems Review of Systems ROS Unobtainable: All systems reviewed & are unremarkable except as noted in HPI and below Patient History Medical History Anxiety Cervical spine disease Chronic back pain Chronic pain Depression Dizziness Encounter for smoking cessation counseling Fatigue Greater trochanteric bursitis of right hip Greater trochanteric bursitis of right hip Hypothyroidism Insomnia disorder, with non-sleep disorder mental comorbidity Lumbar spine pain Psoas muscle strain Somatic dysfunction of abdominal region Tobacco abuse disorder Surgical History Status post hysterectomy Social History marital status: Smoking Status: Current every day smoker alcohol intake: current (2 + A DAY ) substance use type: does not use Smoking Status: Current every day smoker alcohol intake frequency: 0-2 drinks per day Substance Use Type: does not use Exam Narrative Exam Narrative: GENERAL: Alert and oriented x three, female in mild distress. HEENT: Head normocephalic, atraumatic, EOMI, pupils reactive, face symmetric, moist mucous membranes NECK: Supple, full range of motion CARDIOVASCULAR: Regular rate and rhythm without murmurs, rubs or gallops. RESPIRATORY: Breath sounds equal bilaterally, no wheezes rales or rhonchi. ABDOMEN: Soft, positive has generalized tenderness but is significantly more tender in the right lower quadrant. Normoactive bowel sounds all 4 quadrants. No guarding, positive for rebound, no rigidity, no mass, no hernia appreciated. : No CVA tenderness EXTREMITIES: Normal range of motion, no clubbing or edema. Neurovascularly intact NEUROLOGICAL: Cranial nerves II through XII grossly intact. Moving all extremities SKIN: Warm, dry, no petechiae, no rashes or lesions. Initial Vital Signs Initial Vital Signs: Vital Signs Pulse Rate 87 06/03/22 08:44 Blood Pressure 145/91 H 06/03/22 08:44 Pulse Oximetry 100 06/03/22 08:44 Course Orders Ordered: Discontinued Medications Sodium Chloride (Normal Saline 0.9%) 1,000 mls @ 150 mls/hr IV CONT [place] Last Infusion: 06/03/22 12:02 Dose: 0 mls/hr Documented By: Infusion: 06/03/22 12:02 Dose: 0 mls/hr Documented By: Admin: 06/03/22 09:56 Dose: 150 mls/hr Documented By: DOROTHY Ketorolac Tromethamine (Ketorolac 30 Mg/Ml Vial) 15 mg IV NOW ONE Stop: 06/03/22 09:48 Last Admin: 06/03/22 09:55 Dose: 15 mg Documented By: DOROTHY Vital Signs Vital signs: Vital Signs - 8 hr 06/03/22 08:59 06/03/22 08:44 06/03/22 08:44 Temperature 98.1 F Pulse Rate 82 87 Respiratory Rate 18 Blood Pressure 145/91 H 145/91 H Pulse Oximetry 99 100 Oxygen Delivery Method Room Air 06/03/22 08:45 06/03/22 08:45 06/03/22 09:00 Temperature Pulse Rate 84 Respiratory Rate Blood Pressure 153/88 H 130/82 Pulse Oximetry 99 Oxygen Delivery Method 06/03/22 09:00 Temperature Pulse Rate 82 Respiratory Rate Blood Pressure Pulse Oximetry 99 Oxygen Delivery Method MDM - Abdominal Pain Lab Data Result diagrams: 06/03/22 08:49 06/03/22 08:49 Labs: Lab Results 06/03/22 06/03/22 Range/Units 08:49 08:49 WBC 5.5 (4.5-11.0) X10^3/uL RBC 4.30 (4.0-5.2) X10^6/uL Hgb 13.8 (12.0-16.0) g/dL Hct 40.0 (36-46) % MCV 93.1 (80-100) fL MCH 32.2 (26-34) PG MCHC 34.6 (30-36) % RDW 12.8 (11.6-14.8) % Plt Count 226 (150-400) X10^3/uL Neut % (Auto) 56.9 (50-75) % Lymph % (Auto) 23.5 L (25-40) % [place] % (Auto) 13.2 (3-14) % Eos % (Auto) 5.5 H (2-4) % Baso % (Auto) 0.9 (0-2) % Neut # (Auto) 3100 (2325-1953) /uL Lymph # (Auto) 1300 (6503-9479) /uL [place] # (Auto) 700 (0-900) /uL Eos # (Auto) 300 (0-450) /uL Baso # (Auto) 100 (0-100) /uL Sodium 131 L (137-145) mmol/L Potassium 4.2 (3.4-5.1) mmol/L Chloride 101 (98-107) mmol/L Carbon Dioxide 19 L (22-32) mmol/L BUN 11 (7-17) mg/dL Creatinine 0.79 (0.52-1.04) mg/dL Estimated GFR > 60 (>60) mL/min BUN/Creatinine Ratio 13.9 (6-22) Glucose 95 (70-100) mg/dL Calcium 8.5 (8.4-10.2) mg/dL Total Bilirubin 0.8 (0.2-1.3) mg/dL AST 28 (14-36) IU/L ALT 17 (<35) IU/L Alkaline Phosphatase 93 (38-126) U/L Total Protein 9.2 H (6.3-8.2) g/dL Albumin 3.9 (3.5-5.0) g/dL Globulin 5.3 H (1.7-4.1) g/dL Albumin/Globulin Ratio 0.7 L (1.0-2.8) Lipase 40 (23-300) U/L Imaging Data CT scan - abdomen/pelvis: Radiologist's Impression: Close Abdomen/Pelvis CT (Signed) Adriel Zuniga - 06/03/[address] [address] [address] Scan Report Signed Patient: Alisha Hahn MR#: [id number] : 1970 Acct:[id number] Age/Sex: 52 / F Date of Service: 06/03/22 Loc: ED Accession Number: [id number] ?? Procedure: CT abdomen pelvis w con Ordering Provider: Ellie Castro D.O. PROCEDURE:? CT ABDOMEN PELVIS W CON ? INDICATIONS:? gen abd pain since 05/31, RLQ pain on palp ? TECHNIQUE:? After the administration of intravenous contrast, axial sections acquired from the lung bases to the pubic symphysis.? Coronal and sagittal reformats were performed.? For radiation dose reduction, the following was used:? automated exposure control, adjustment of mA and/or kV according to patient size.? ? COMPARISON:? [facility], CT, ABDOMEN/PELVIS WITH CONTRAST, 11/29/2017, 23:53. ? FINDINGS:? Image quality:? Excellent.? ? Lung bases:? Linear scarring/atelectasis in posterior aspect of bilateral lung bases are seen.. Heart:? No significant findings. ? ABDOMEN: Liver:? Liver is normal in size.? Previously described 9 mm hyperdense focus with slightly lobulated contour is again seen in right hepatic lobe now only measures 5 mm in size series 2, image 19.? No new hepatic lesion is noted. Gallbladder:? Unremarkable. Biliary ducts:? Unremarkable.? ? Pancreas:? Unremarkable.? ? Spleen:? Unremarkable.? ? Adrenal Glands:? Unremarkable.? ? Kidneys and Ureters:? Unremarkable.? ? ? Stomach and Bowel:? There is no bowel obstruction.? No gastric wall thickening.? Moderate wall thickening and edema involving mid to distal small bowel loops and throughout colon is seen with mild mesenteric fat stranding and narrowing of the lumen.? A few sigmoid diverticuli are seen.? No significant pericolonic fat stranding or abscess bruce ection in this region.? Appendix is visualized and is normal in size and appearance. Peritoneum:? No abnormal intraperitoneal fluid.? No free air.? ? Ventral Wall: ? No hernias.? Abdominal Nodes:? No retroperitoneal or mesenteric adenopathy by size criteria.? Vessels:? Aorta and inferior vena cava are normal in size.? ? PELVIS: Pelvic Organs:? Unremarkable.? ? Bladder:? Unremarkable.? ? Pelvic Nodes: No enlarged lymph nodes.? Miscellaneous: No hernias are seen. ? ? ? Bones:? No suspicious bony lesion.? No acute vertebral body compression fracture. ? ? IMPRESSION:? 1.? Finding is suggestive of infectious or inflammatory enterocolitis involving mid to distal small bowel loops and throughout the colon.? A few sigmoid diverticuli without CT evidence of acute diverticulitis.? No abscess collection.? No free fluid or free air. 2. Interval decrease in size of patient's known hyperdense focus in right hepatic lobe likely represent flash filling of hemangioma or other benign process.? No new he patic lesion is seen. ? ? Dictated by: Adriel Zuniga M.D. on 06/03/2022 at 10:31 ? ? Approved by: Adriel Zuniga M.D. on 06/03/2022 at 10:35 ECG Data Attestation: I personally reviewed and interpreted this ECG as follows: Interpretation: Sinus rhythm rate of 76 UT 148 QRS 82 and QTC 438. Q-wave in lead 3. No acute ST elevation or depression noted. Patient has prior from 05/06/2021 which appears similar. MDM Narrative Medical decision making narrative: 52-year-old female comes with complaint of abdominal pain starting Thursday di arrhea starting in the last 12 hours. Patient states pain has been persistent she has a history of diverticulitis but states it feels different. She is quite tender in the right lower quadrant on exam making me suspicious for appendicitis with generalized abdominal discomfort. Her labs show a slight leukocytosis, no other significant liver enzyme or abdominal abnormalities on lab work. CT abdomen pelvis shows enterocolitis of the mid and distal small bowel and colon no evidence of diverticulitis or abscess no free fluid or free air. Patient does have an interval decrease in size of the hyperdense focus in the right hepatic lobe likely flash filling hemangioma no new hepatic lesions noted on recheck. Discussed with patient there may be an infectious component will start her on oral antibiotic she is allergic to penicillin and has throat swelling but tolerates amoxicillin without issue. Plan for pain management as well and return precautions discussed. Discharge Plan Departure Patient Disposition: Home Clinical Impression: Enterocolitis Activity Restrictions/Additional Instructions: Please follow-up if your symptoms are not improving over the next 48-72 hours. You can take [place] 1-2 tablets every 6 hours as needed for pain. This medication can make you sleepy do not drive, perform hazardous activities or make any major decisions while taking it. This medication will make you constipated please take a stool softener once to twice daily until stools are soft and reg ular. Take antibiotics until completely gone. Prescription sent to [facility] in [place]. Please return for fevers, rapidly worsening abdominal, back or flank pain, persistent vomiting, new or increasing black or bloody stools, lightheadedness or passing out or other new or concerning symptoms. Prescriptions: New amoxicillin-pot clavulanate 875-125 mg tablet 1 tab PO BID Qty: 20 0RF hydrocodone-acetaminophen 5-325 mg tablet 1 tab PO Q6H PRN (Reason: pain) Qty: 10 0RF No Action paroxetine HCl 20 mg tablet See Rx Instructions .ROUTE .COMPLEX Qty: 60 0RF Dose Instruction: Take two tablets by mouth daily. Rx Instructions: Take two tablets by mouth daily. gabapentin 300 mg capsule See Rx Instructions .ROUTE .COMPLEX Qty: 180 5RF Dose Instruction: TAKE TWO CAPSULES BY MOUTH THREE TIMES DAILY FOR PAIN Rx Instructions: TAKE TWO CAPSULES BY MOUTH THREE TIMES DAILY FOR PAIN estradiol 1 mg tablet See Rx Instructions .ROUTE .COMPLEX Qty: 30 0RF Dose Instruction: Take one tablet by mouth one time daily. Rx Instructions: Take one tablet by mouth one time daily. levothyroxine 100 mcg tablet See Rx Instructions .ROUTE .COMPLEX Qty: 30 5RF Dose Instruction: TAKE ONE TABLET BY MOUTH EVERY MORNING Rx Instructions: TAKE ONE TABLET BY MOUTH EVERY MORNING gabapentin 100 mg capsule 100 mg PO BID Qty: 60 1RF meclizine 25 mg tablet 25 mg PO TID PRN (Reason: dizziness) Qty: 21 0RF meclizine 25 mg tablet 25 mg PO TID PRN (Reason: dizziness) Qty: 21 0RF tramadol [Ultram] 50 mg tablet 50 mg PO Q6H PRN (Reason: pain) Qty: 10 0RF hydrocodone-acetaminophen 5-325 mg tablet 1 tab PO Q4-6H PRN (Reason: pain) Qty: 10 0RF Referrals: Yonatan Bacon DO [Primary Care Provider] - Visit Report Forms: Patient Portal/API
[2022-06-03] MEDS: KETOROLAC 30 MG/ML VIAL 15 MG IV (09:55)
[2022-06-03] MEDS: SODIUM CHLORIDE 0.9% 1,000 ML 150 ML IV (09:56)
--- NOTE | 2022-06-03 10:13 | DI.CT.S_ITS ---
PROCEDURE: CT ABDOMEN PELVIS W CON INDICATIONS: gen abd pain since 05/31, RLQ pain on palp TECHNIQUE: After the administration of intravenous contrast, axial sections acquired from the lung bases to the pubic symphysis. Coronal and sagittal reformats were performed. For radiation dose reduction, the following was used: automated exposure control, adjustment of mA and/or kV according to patient size. COMPARISON: [facility], CT, ABDOMEN/PELVIS WITH CONTRAST, 11/29/2017, 23:53. FINDINGS: Image quality: Excellent. Lung bases: Linear scarring/atelectasis in posterior aspect of bilateral lung bases are seen.. Heart: No significant findings. ABDOMEN: Liver: Liver is normal in size. Previously described 9 mm hyperdense focus with slightly lobulated contour is again seen in right hepatic lobe now only measures 5 mm in size series 2, image 19. No new hepatic lesion is noted. Gallbladder: Unremarkable. Biliary ducts: Unremarkable. Pancreas: Unremarkable. Spleen: Unremarkable. Adrenal Glands: Unremarkable. Kidneys and Ureters: Unremarkable. Stomach and Bowel: There is no bowel obstruction. No gastric wall thickening. Moderate wall thickening and edema involving mid to distal small bowel loops and throughout colon is seen with mild mesenteric fat stranding and narrowing of the lumen. A few sigmoid diverticuli are seen. No significant pericolonic fat stranding or abscess collection in this region. Appendix is visualized and is normal in size and appearance. Peritoneum: No abnormal intraperitoneal fluid. No free air. Ventral Wall: No hernias. Abdominal Nodes: No retroperitoneal or mesenteric adenopathy by size criteria. Vessels: Aorta and inferior vena cava are normal in size. PELVIS: Pelvic Organs: Unremarkable. Bladder: Unremarkable. Pelvic Nodes: No enlarged lymph nodes. Miscellaneous: No hernias are seen. Bones: No suspicious bony lesion. No acute vertebral body compression fracture. IMPRESSION: 1. Finding is suggestive of infectious or inflammatory enterocolitis involving mid to distal small bowel loops and throughout the colon. A few sigmoid diverticuli without CT evidence of acute diverticulitis. No abscess collection. No free fluid or free air. 2. Interval decrease in size of patient's known hyperdense focus in right hepatic lobe likely represent flash filling of hemangioma or other benign process. No new hepatic lesion is seen. Dictated by: Adriel Zuniga M.D. on 06/03/2022 at 10:31 Approved by: Adriel Zuniga M.D. on 06/03/2022 at 10:35
== END 2022-06-03 12:00 | disposition home or self-care (01) ==
PROVIDERS: Emergency Provider Emergency Medicine; PCP Student in an Organized Health Care Education/Training Program
DX: K52.9 Noninfective gastroenteritis and colitis, unspecified (principal); R10.84 Generalized abdominal pain
CPT/HCPCS: 74177; 80053; 83690; 85025; 93005; 93010; 96361; 96374; 99283; 99284; J1885

== ENCOUNTER 2022-10-01 10:16 | Emergency (ER) | payer OTHER, MEDICAID, SELFPAY ==
[2022-10-01 10:20] VITALS: BP 137/86; PULSE 99; RESP 15; TEMP 35.6; O2SAT 99; BMI 26.5
--- NOTE | 2022-10-01 10:42 | DI.RAD.S_ITS ---
PROCEDURE: XR SHOULDER LT MIN 2V INDICATIONS: shoulder pain TECHNIQUE: 3 views of the shoulder were acquired. COMPARISON: [facility], , XR SHOULDER LT MIN 2V, 10/07/2019, 8:36. [facility], , SHOULDER MINIMUM 2VIEW RIGHT, 08/27/2007, 13:04. FINDINGS: Bones: No fractures or dislocations. No suspicious bony lesions. Visualized ribs appear intact. At least mild glenohumeral joint degenerative changes present. Soft tissues: No suspicious soft tissue calcifications. IMPRESSION: No acute osseous abnormality. If symptoms persist, follow-up radiographs and/or CT or MRI may be helpful for further evaluation. Dictated by: Davy Sanchez M.D. on 10/01/2022 at 11:15 Approved by: Davy Sanchez M.D. on 10/01/2022 at 11:17
--- NOTE | 2022-10-01 10:42 | DI.RAD.S_ITS ---
PROCEDURE: XR CHEST 1V INDICATIONS: left shoulder/arm pain TECHNIQUE: One view of the chest was acquired. COMPARISON: [facility], CHEST 2 VIEW, 01/07/2017, 8:57. [facility], CHEST 2 VIEW, 05/15/2010, 14:32. FINDINGS: Surgical changes and devices: None. Lungs and pleura: Lungs are clear. No pleural effusions or pneumothorax. Mediastinum: Mediastinal contours appear normal. Heart size is normal. Bones and chest wall: No suspicious bony lesions. Overlying soft tissues appear unremarkable. IMPRESSION: No acute cardiopulmonary abnormality. Dictated by: Davy Sanchez M.D. on 10/01/2022 at 10:59 Approved by: Davy Sanchez M.D. on 10/01/2022 at 11:02
[2022-10-01 11:23] LABS: Add Manual Diff / Slide Review NO; Basophils Absolute Auto 0 /uL (0-100); Basophils Percent Auto 1.3 % (0-2); Eosinophils Absolute Auto 200 /uL (0-450); Hematocrit 37.9 % (36-46); Hemoglobin 12.8 g/dL (12.0-16.0); Lymphocytes Absolute Auto 1000 /uL (1100-4500); Lymphocytes Percent Auto 27.6 % (25-40); Mean Corpuscular HGB Conc 33.6 % (30-36); Mean Corpuscular Hemoglobin 31.7 PG (26-34); Mean Corpuscular Volume 94.2 fL (80-100); Monocytes Absolute Auto 500 /uL (0-900); Neutrophils Absolute Auto 1800 /uL (1500-7000); Neutrophils Percent Auto 51.1 % (50-75); Platelet Count 236 X10^3/uL (150-400); Red Blood Cell Count 4.02 X10^6/uL (4.0-5.2); Red Cell Distribution Width 13.6 % (11.6-14.8); White Blood Cell Count 3.5 X10^3/uL (4.5-11.0)
[2022-10-01 11:34] LABS: Alanine Aminotransferase 24 IU/L (<35); Albumin 4.1 g/dL (3.5-5.0); Albumin Globulin Ratio 0.8 (1.0-2.8); Alkaline Phosphatase 90 U/L (38-126); Aspartate Aminotransferase 30 IU/L (14-36); BUN Creatinine Ratio 19.7 (6-22); Bilirubin Total 0.6 mg/dL (0.2-1.3); Blood Urea Nitrogen 14 mg/dL (7-17); Carbon Dioxide 28 mmol/L (22-32); Chloride 101 mmol/L (98-107); Estimated Glomerular Filt Rate > 60 mL/min (>60); Globulin 5.3 g/dL (1.7-4.1); Glucose 96 mg/dL (70-100); HEMOLYSIS < 15 (0-50); Potassium 4.2 mmol/L (3.4-5.1); Sodium 137 mmol/L (137-145); Total Protein 9.4 g/dL (6.3-8.2)
[2022-10-01 11:44] LABS: Troponin I < 0.012 ng/mL (0.01-0.034)
[2022-10-01 12:06] VITALS: BP 129/86; PULSE 86; O2SAT 98
--- NOTE | 2022-10-02 12:14 | ED_ITS ---
HPI - Extremity Problem General Chief complaint: Extremity Problem,Nontraumatic Stated complaint: pinched nerve lt shoulder, numbness on fingers Time Seen by Provider: 10/01/22 10:28 Source: patient Mode of arrival: Ambulatory History of Present Illness HPI Narrative: 51-year-old female presenting with concern regarding pinched nerve on the left upper extremity. Patient reports developing intermittent paresthesias to the left upper extremity about the left 4th and 5th digits, patient describes this as intermittently numbness and tingling, also has pain that radiates from the left shoulder blade area to this location. No recent traumatic injuries noted. No overlying skin changes noted. No neck pain appreciated. No associated chest pain or shortness breath. No abdominal pain. Related Data Previous Rx's Medication Instructions Recorded paroxetine HCl 20 mg tablet See Rx Instructions .Route 04/09/20 .COMPLEX #60 tabs gabapentin 300 mg capsule See Rx Instructions .Route 04/24/20 .COMPLEX #180 caps gabapentin 100 mg capsule 100 mg PO BID #60 caps 05/01/20 estradiol 1 mg tablet See Rx Instructions .Route 06/17/20 .COMPLEX #30 tabs levothyroxine 100 mcg tablet See Rx Instructions .Route 07/23/20 .COMPLEX #30 tabs tramadol 50 mg tablet (Ultram) 50 mg PO Q6H PRN pain #10 tabs 09/16/20 meclizine 25 mg tablet 25 mg PO TID PRN dizziness #21 tabs 05/06/21 meclizine 25 mg tablet 25 mg PO TID PRN dizziness #21 tabs 05/06/21 hydrocodone 5 mg-acetaminophen 325 1 tab PO Q4-6H PRN pain #10 tabs 08/15/21 mg tablet amoxicillin 875 mg-potassium 1 tab PO BID #20 tabs 06/03/22 clavulanate 125 mg tablet hydrocodone 5 mg-acetaminophen 325 1 tab PO Q6H PRN pain #10 tabs 06/03/22 mg tablet Allergies Allergy/AdvReac Type Severity Reaction Status Date / Time codeine [CODEINE] Allergy Severe ANAPHYLAXIS Verified 10/01/22 10:20 Penicillins [PENICILLINS] Allergy Severe ANAPHYLAXIS Verified 10/01/22 10:20 shellfish derived Allergy Severe CRAB, Verified 10/01/22 10:20 [SHELLFISH DERIVED] SWELLING AIRWAIR CLOSED latex [LATEX] Allergy Mild rash Verified 10/01/22 10:20 Patient History Medical History Anxiety Cervical spine disease Chronic back pain Chronic pain Depression Dizziness Encounter for smoking cessation counseling Fatigue Greater trochanteric bursitis of right hip Greater trochanteric bursitis of right hip Hypothyroidism Insomnia disorder, with non-sleep disorder mental comorbidity Lumbar spine pain Psoas muscle strain Somatic dysfunction of abdominal region Tobacco abuse disorder Surgical History Status post hysterectomy Social History marital status: Smoking Status: Current every day smoker alcohol intake: current (2 + A DAY ) substance use type: does not use Smoking Status: Current every day smoker alcohol intake frequency: holidays/special occasions only Substance Use Type: does not use Exam Narrative Exam Narrative: Vitals reviewed. Nursing note reviewed Constitutional: interactive HENT: Moist mucous membranes EYES: No scleral icterus NECK: no masses CV: Well perfused peripherally, no cyanosis present PULM: Unlabored respirations, symmetric chest rise ABD: Non-distended MS: No gross deformities, no asymmetric edema noted SKIN: Warm and dry. PSYCH: Appropriate affect NEURO: Follows simple commands, moves extremities, interactive with exam, symmetric strength and sensation to bilateral upper extremities Initial Vital Signs Initial Vital Signs: Vital Signs Temperature 96.0 F L 10/01/22 10:20 Pulse Rate 99 H 10/01/22 10:20 Respiratory Rate 15 10/01/22 10:20 Blood Pressure 137/86 10/01/22 10:20 Pulse Oximetry 99 10/01/22 10:20 Oxygen Delivery Method 10/01/22 10:20 MDM - Extremity (Nontraumatic) Lab Data 10/01/22 11:15 10/01/22 11:15 Labs: Lab Results 10/01/22 10/01/22 Range/Units 11:15 11:15 WBC 3.5 L (4.5-11.0) X10^3/uL RBC 4.02 (4.0-5.2) X10^6/uL Hgb 12.8 (12.0-16.0) g/dL Hct 37.9 (36-46) % MCV 94.2 (80-100) fL MCH 31.7 (26-34) PG MCHC 33.6 (30-36) % RDW 13.6 (11.6-14.8) % Plt Count 236 (150-400) X10^3/uL Neut % (Auto) 51.1 (50-75) % Lymph % (Auto) 27.6 (25-40) % Wilcox % (Auto) 15.0 H (3-14) % Eos % (Auto) 5.0 H (2-4) % Baso % (Auto) 1.3 (0-2) % Neut # (Auto) 1800 (3005-2845) /uL Lymph # (Auto) 1000 L (2637-4554) /uL Wilcox # (Auto) 500 (0-900) /uL Eos # (Auto) 200 (0-450) /uL Baso # (Auto) 0 (0-100) /uL Sodium 137 (137-145) mmol/L Potassium 4.2 (3.4-5.1) mmol/L Chloride 101 (98-107) mmol/L Carbon Dioxide 28 (22-32) mmol/L BUN 14 (7-17) mg/dL Creatinine 0.71 (0.52-1.04) mg/dL Estimated GFR > 60 (>60) mL/min BUN/Creatinine Ratio 19.7 (6-22) Glucose 96 (70-100) mg/dL Calcium 9.0 (8.4-10.2) mg/dL Total Bilirubin 0.6 (0.2-1.3) mg/dL AST 30 (14-36) IU/L ALT 24 (<35) IU/L Alkaline Phosphatase 90 (38-126) U/L Troponin I < 0.012 (0.01-0.034) ng/mL Total Protein 9.4 H (6.3-8.2) g/dL Albumin 4.1 (3.5-5.0) g/dL Globulin 5.3 H (1.7-4.1) g/dL Albumin/Globulin Ratio 0.8 L (1.0-2.8) MDM Narrative Medical decision making narrative: 52-year-old female presenting with left upper extremity pain, concern for pinched nerve. On presentation, vital signs notable for no significant abnormalities. Physical exam notable for well-appearing 52-year-old female who is in no acute distress, alert interactive, reassuring cardiopulmonary exam benign abdomen, no focal neurologic deficits appreciated. Initial concern for thoracic versus cervical radiculopathy, cord compression, occult ACS, mass lesion, musculoskeletal strain. EKG obtained on presentation without evidence ischemia, troponin is not detectable after several days of symptoms arguing against ACS. Screening labs reassuring as above without significant electrolyte derangements. X-rays obtained without evidence of acute pathology as above. Discussed findings with patient at bedside. Discussed plan for conservative outpatient management and close follow up, return precautions were discussed. Discharge Plan Departure Patient Disposition: Home Clinical Impression: Arm pain Instructions: DI for Arm Pain Activity Restrictions/Additional Instructions: Please follow up in outpatient setting with your primary care provider. Please discuss physical therapy as we discussed here in the emergency department. Please return for new or worsening symptoms. Prescriptions: No Action paroxetine HCl 20 mg tablet See Rx Instructions .ROUTE .COMPLEX Qty: 60 0RF Dose Instruction: Take two tablets by mouth daily. Rx Instructions: Take two tablets by mouth daily. gabapentin 300 mg capsule See Rx Instructions .ROUTE .COMPLEX Qty: 180 5RF Dose Instruction: TAKE TWO CAPSULES BY MOUTH THREE TIMES DAILY FOR PAIN Rx Instructions: TAKE TWO CAPSULES BY MOUTH THREE TIMES DAILY FOR PAIN estradiol 1 mg tablet See Rx Instructions .ROUTE .COMPLEX Qty: 30 0RF Dose Instruction: Take one tablet by mouth one time daily. Rx Instructions: Take one tablet by mouth one time daily. levothyroxine 100 mcg tablet See Rx Instructions .ROUTE .COMPLEX Qty: 30 5RF Dose Instruction: TAKE ONE TABLET BY MOUTH EVERY MORNING Rx Instructions: TAKE ONE TABLET BY MOUTH EVERY MORNING gabapentin 100 mg capsule 100 mg PO BID Qty: 60 1RF meclizine 25 mg tablet 25 mg PO TID PRN (Reason: dizziness) Qty: 21 0RF meclizine 25 mg tablet 25 mg PO TID PRN (Reason: dizziness) Qty: 21 0RF amoxicillin-pot clavulanate 875-125 mg tablet 1 tab PO BID Qty: 20 0RF hydrocodone-acetaminophen 5-325 mg tablet 1 tab PO Q6H PRN (Reason: pain) Qty: 10 0RF tramadol [Ultram] 50 mg tablet 50 mg PO Q6H PRN (Reason: pain) Qty: 10 0RF hydrocodone-acetaminophen 5-325 mg tablet 1 tab PO Q4-6H PRN (Reason: pain) Qty: 10 0RF Referrals: Yonatan Bacon DO [Primary Care Provider] - Stand Alone Forms: Patient Portal/API
== END 2022-10-01 12:11 | disposition home or self-care (01) ==
PROVIDERS: Emergency Provider Emergency Medicine; PCP Student in an Organized Health Care Education/Training Program
DX: M79.602 Pain in left arm (principal); R07.9 Chest pain, unspecified
CPT/HCPCS: 36415; 71045; 73030; 80053; 84484; 85025; 93005; 93010; 99283; 99284

== ENCOUNTER 2022-12-03 20:13 | Emergency (ER) | payer OTHER, MEDICAID, SELFPAY ==
[2022-12-03 20:45] VITALS: BP 145/85; PULSE 95; RESP 20; TEMP 36.9; O2SAT 97; BMI 27.4
--- NOTE | 2022-12-04 00:07 | PC.NURSE ---
[employer] note: answered call light. pt asked how much longer it will be. notified pt the doctor has been busy with another pt. and that it wouldn't be too much longer. pt. stated i will give it another hour and then i am just gonna go home
== END 2022-12-04 01:40 | disposition left against medical advice (07) ==
PROVIDERS: Emergency Provider Emergency Medicine; PCP Student in an Organized Health Care Education/Training Program
CPT/HCPCS: 99281

== ENCOUNTER 2023-09-18 12:39 | Observation (INO) | payer OTHER, MEDICAID, SELFPAY ==
[2023-09-18] VITALS (9 sets, daily range): BP systolic 110–131; BP diastolic 65–83; PULSE 70–89; RESP 14–21; TEMP 36.2–36.9; O2SAT 97–100; BMI 24.5
--- NOTE | 2023-09-18 13:18 | DI.CT.S_ITS ---
PROCEDURE: CT ABDOMEN PELVIS W CON INDICATIONS: severe abdominal pain x 5 days, generalized, worse w/eating TECHNIQUE: After the administration of intravenous contrast, axial sections acquired from the lung bases to the pubic symphysis. Coronal and sagittal reformats were performed. For radiation dose reduction, the following was used: automated exposure control, adjustment of mA and/or kV according to patient size. COMPARISON: [facility], CT, CT ABDOMEN PELVIS W CON, 06/03/2022, 10:15. [facility], CT, ABDOMEN/PELVIS WITH CONTRAST, 11/29/2017, 23:53. FINDINGS: Image quality: Diagnostic. Lower Chest: No significant findings. ABDOMEN: Liver: No solid mass. A previously visualized presumed hemangioma is poorly seen by the current study given differences in phases of enhancement. It remains present but may be slightly smaller. Gallbladder: No radiopaque gallstones or wall thickening. Biliary ducts: No biliary dilation. Pancreas: No ductal dilation. Spleen: Size is within normal limits. Adrenal Glands: No adrenal nodules. Kidneys and Ureters: No hydronephrosis. No solid mass. No complex renal cystic lesion which requires follow up. Stomach and Bowel: Normal colonic caliber, without significant wall thickening. Peritoneum: No abnormal intraperitoneal fluid. No free air. Ventral Wall: No hernia. Abdominal Nodes: No retroperitoneal or mesenteric adenopathy by size criteria. Vessels: Aorta and inferior vena cava are normal in size. PELVIS: Pelvic Organs: Unremarkable. Bladder: Unremarkable. Pelvic Nodes: No enlarged lymph nodes. Miscellaneous: No inguinal hernias are seen. Deep within the posterior right lower pelvis is a tubular inflamed structure that is not particularly dilated but now fluid-filled with an appearance consistent with a relatively elongated appendix as can be seen on a prior CT scan from November of 2017 but which currently is inflamed with adjacent free fluid at its inferior tip. Bones: No aggressive osseous abnormality. IMPRESSION: Presumed acute appendicitis, with a small amount of free fluid at its inferior tip, given the presence of a inflamed fluid-filled tubular structure extending from the right lower quadrant into the right posterior cul-de-sac. Findings immediately called to the emergency room physician who will convey this information to the ordering healthcare provider also in the emergency room. Dictated by: Jamin Knutson M.D. on 09/18/2023 at 13:58 Approved by: Jamin Knutson M.D. on 09/18/2023 at 14:08
--- NOTE | 2023-09-18 13:20 | ED.ABDPAIN ---
HPI - Abdominal Pain <Mirna Ramirez PA-C - Last Filed: 09/18/23 17:45> General Chief Complaint: Abdominal Pain Stated Complaint: abdominal pain Time Seen by Provider: 09/18/23 12:55 Source: patient Mode of arrival: Ambulatory History of Present Illness HPI narrative: This is a 53-year-old woman with a history of hypothyroid, osteoarthritis of the lumbar region, who presents with concern for severe abdominal pain since Thursday 5-1/2 days ago. Patient states that the pain seemed to start out of the blue and initially was up high in the epigastric region. Over the next couple days it continued and she also began feeling it across her low belly. She has continued to have the epigastric pain and low belly pain for the last 3 days. Her pain has been constant. She does state she has a normal appetite but her pain is worse with eating and so she has been eating a little bit less. She saw her primary care provider 2 days ago and had labs done which she says were all normal at that time, she knows she had her thyroid labs done and believes that she had some basic blood work done as well. She has not had vomiting or nausea but does state that she has not had a normal bowel movement since Thursday (small one thursday, none since). She says she normally has no problems with constipation. She has not had pain like this previously. She describes it as a constant ache that is a 10 or 11/10 and occasionally she has very intense sharp pains that are 15/10. She has been trying heating pads and position changes but nothing seems to improve her pain. She has an appointment for an x-ray in September 3 weeks from now but states ?I can not wait this pain is too intense?. She does not feel the pain has worsened since it began it is simply not going away. She denies fevers chills or any other symptoms and has otherwise been in her usual state of health. She did start taking omeprazole as prescribed by her PCP which she says has not been helping, she also has had multiple doses of MiraLax with no improvement/no new bowel movement. Patient states she last ate a small oatmeal packet, a small donut and some coffee between 9a.m. and 12:00 p.m. today. Related Data Home Medications Medication Instructions Recorded Confirmed duloxetine 60 mg PO DAILY 09/18/23 09/18/23 gabapentin 300 mg capsule 300 mg PO BEDTIME 09/18/23 09/18/23 Previous Rx's Medication Instructions Recorded paroxetine HCl 20 mg tablet See Rx Instructions .Route 04/09/20 .COMPLEX #60 tabs levothyroxine 100 mcg tablet See Rx Instructions .Route 07/23/20 .COMPLEX #30 tabs Allergies Allergy/AdvReac Type Severity Reaction Status Date / Time codeine [CODEINE] Allergy Severe ANAPHYLAXIS Verified 09/18/23 12:52 Penicillins [PENICILLINS] Allergy Severe ANAPHYLAXIS Verified 09/18/23 12:52 shellfish derived Allergy Severe CRAB, Verified 09/18/23 12:52 [SHELLFISH DERIVED] SWELLING AIRWAIR CLOSED latex [LATEX] Allergy Mild rash Verified 09/18/23 12:52 Review of Systems <Mirna Ramirez PA-C - Last Filed: 09/18/23 17:45> Review of Systems Narrative: see HPI Patient History <Mirna Ramirez PA-C - Last Filed: 09/18/23 17:45> Medical History Greater trochanteric bursitis of right hip Encounter for smoking cessation counseling Somatic dysfunction of abdominal region Psoas muscle strain Greater trochanteric bursitis of right hip Dizziness Insomnia disorder, with non-sleep disorder mental comorbidity Fatigue Tobacco abuse disorder Chronic pain Lumbar spine pain Cervical spine disease Hypothyroidism Chronic back pain Depression Anxiety Surgical History Status post hysterectomy Social History marital status: household members: spouse Smoking Status: Current every day smoker alcohol intake: never substance use type: does not use Smoking Status: Current every day smoker alcohol intake frequency: holidays/special occasions only Substance Use Type: does not use Exam <Mirna Ramirez PA-C - Last Filed: 09/18/23 17:45> Narrative Exam Narrative: GENERAL: 53 year old patient appears stated age. Well-developed patient, in mild distress, nontoxic appearing. HEAD: Atraumatic. Normocephalic. EYES: Pupils equal round and reactive. Extraocular motions intact. No scleral icterus. No injection or drainage. ENT: Nose without bleeding, purulent drainage. Airway patent. NECK: Trachea midline. Non tender CARDIOVASCULAR: Regular rate and rhythm without murmurs, gallops, or rubs. RESPIRATORY: Clear to auscultation. Breath sounds equal bilaterally. No wheezes, rales, or rhonchi. GASTROINTESTINAL: Abdomen soft, there is generalized tenderness throughout with peritoneal signs with guarding present throughout, there is significant epigastric left upper quadrant tenderness and positive McBurney's point tenderness as well as positive Dominguez's sign. There is also significant tenderness of the left lower quadrant and suprapubic region. abdomen is Nondistended, no flank tenderness/CVA tenderness. EXTREMITIES: No edema or joint tenderness. BACK: Nontender without deformity or crepitance. No flank tenderness. NEURO: AOx3. SKIN: No rash or erythema of visible areas Initial Vital Signs Initial Vital Signs: Vital Signs Temperature 98.1 F 09/18/23 12:48 Pulse Rate 89 09/18/23 12:48 Respiratory Rate 14 09/18/23 12:48 Blood Pressure 123/79 09/18/23 12:48 Pulse Oximetry 99 09/18/23 12:48 Oxygen Delivery Method Room Air 09/18/23 12:48 <Aly Joy DO - Last Filed: 09/18/23 17:50> Initial Vital Signs Initial Vital Signs: Vital Signs Temperature 98.1 F 09/18/23 12:48 Pulse Rate 89 09/18/23 12:48 Respiratory Rate 14 09/18/23 12:48 Blood Pressure 123/79 09/18/23 12:48 Pulse Oximetry 99 09/18/23 12:48 Oxygen Delivery Method Room Air 09/18/23 12:48 Course <Mirna Ramirez PA-C - Last Filed: 09/18/23 17:45> Course Course Narrative: Dr. Joy called and advised that radiology advised him this patient has an acute appendicitis without evidence of perforation with a very long appendix that stretches down into the low abdomen/pelvis. [address] James and discussed this patient with him he is ok with taking this patient direct and will admit under observation. Anticipate surgery tomorrow given patient ate as recently as 11:30 a.m. today. Based on allergies will do ciprofloxacin/Flagyl IV antibiotics. 1426 Decision to Admit Date: 09/18/23 Decision to Admit time: 14:05 Additional Information: Acute appendicitis Orders Ordered: ED Orders 09/18/23 13:16 CRP [C-Reactive Protein Quant] Stat Complete Blood Count AUTO DIFF Stat Comprehensive Metabolic Panel Stat Lipase Stat 09/18/23 13:18 CT abdomen pelvis w con Stat Acetaminophen (Acetaminophen 325 Mg Tablet) 650 mg PO Q6H PRN PRN Reason: Fever/Mild Pain (1-3) Dextrose/Sodium Chloride (Dextrose 5%-0.45% Ns) 1,000 mls @ 100 mls/hr IV CONT [place] Last Admin: 09/18/23 17:12 Dose: 100 mls/hr Documented By: ADEN Ciprofloxacin (Cipro) 200 mg in 100 mls @ 100 mls/hr IV Q12H [place] Metronidazole (Flagyl) 500 mg in 100 mls @ 100 mls/hr IV Q8H [facility] Last Admin: 09/18/23 17:06 Dose: 100 mls/hr Documented By: ADEN Ibuprofen (Ibuprofen 600 Mg Tablet) 600 mg PO Q6H PRN PRN Reason: Fever/Mild Pain (1-3) Naloxone HCl (Naloxone 0.4 Mg/Ml Vial) 0.2 mg IV Q2MIN PRN PRN Reason: Opiate Reversal Oxycodone HCl (Oxycodone Ir 5 Mg Tablet) 5 mg PO Q4HR PRN PRN Reason: Pain, Moderate (4-6) Last Admin: 09/18/23 15:15 Dose: 5 mg Documented By: FELIZ Discontinued Medications Sodium Chloride (Normal Saline 0.9%) 1,000 mls @ 1,000 mls/hr IV [place] ONE Stop: 09/18/23 14:16 Last Infusion: 09/18/23 14:27 Dose: Infused Documented By: Admin: 09/18/23 13:34 Dose: 1,000 mls/hr Documented By: FELIZ Metronidazole (Flagyl) 500 mg in 100 mls @ 100 mls/hr IV NOW ONE Stop: 09/18/23 15:27 Last Admin: 09/18/23 15:42 Dose: Not Given Documented By: ADEN Ciprofloxacin (Cipro) 400 mg in 200 mls @ 200 mls/hr IV NOW ONE Stop: 09/18/23 15:29 Last Infusion: 09/18/23 17:00 Dose: Infused Documented By: Admin: 09/18/23 15:12 Dose: 200 mls/hr Documented By: FELIZ Ciprofloxacin (Cipro) 200 mg in 100 mls @ 100 mls/hr IV Q12H [facility] Last Admin: 09/18/23 16:09 Dose: Not Given Documented By: ADEN Metronidazole (Flagyl) 500 mg in 100 mls @ 100 mls/hr IV Q8H [facility] Last Admin: 09/18/23 16:10 Dose: Not Given Documented By: ADEN Ketorolac Tromethamine (Ketorolac 30 Mg/Ml Vial) 15 mg IV NOW ONE Stop: 09/18/23 14:32 Last Admin: 09/18/23 16:07 Dose: Not Given Documented By: ADEN Vital Signs Vital signs: Vital Signs - 8 hr 09/18/23 12:48 09/18/23 13:44 09/18/23 14:00 Temperature 98.1 F 97.6 F Pulse Rate 89 Respiratory Rate 14 18 14 Blood Pressure 123/79 122/71 Pulse Oximetry 99 100 Oxygen Delivery Method Room Air Room Air 09/18/23 14:01 09/18/23 14:33 Temperature Pulse Rate 77 74 Respiratory Rate 18 16 Blood Pressure 110/65 121/72 Pulse Oximetry 100 100 Oxygen Delivery Method Room Air <Aly Joy, DO - Last Filed: 09/18/23 17:50> Orders Ordered: ED Orders 09/18/23 13:16 CRP [C-Reactive Protein Quant] Stat Complete Blood Count AUTO DIFF Stat Comprehensive Metabolic Panel Stat Lipase Stat 09/18/23 13:18 CT abdomen pelvis w con Stat Acetaminophen (Acetaminophen 325 Mg Tablet) 650 mg PO Q6H PRN PRN Reason: Fever/Mild Pain (1-3) Dextrose/Sodium Chloride (Dextrose 5%-0.45% Ns) 1,000 mls @ 100 mls/hr IV CONT [facility] Last Admin: 09/18/23 17:12 Dose: 100 mls/hr Documented By: ADEN Ciprofloxacin (Cipro) 200 mg in 100 mls @ 100 mls/hr IV Q12H [facility] Metronidazole (Flagyl) 500 mg in 100 mls @ 100 mls/hr IV Q8H [facility] Last Admin: 09/18/23 17:06 Dose: 100 mls/hr Documented By: ADEN Ibuprofen (Ibuprofen 600 Mg Tablet) 600 mg PO Q6H PRN PRN Reason: Fever/Mild Pain (1-3) Naloxone HCl (Naloxone 0.4 Mg/Ml Vial) 0.2 mg IV Q2MIN PRN PRN Reason: Opiate Reversal Oxycodone HCl (Oxycodone Ir 5 Mg Tablet) 5 mg PO Q4HR PRN PRN Reason: Pain, Moderate (4-6) Last Admin: 09/18/23 15:15 Dose: 5 mg Documented By: FELIZ Discontinued Medications Sodium Chloride (Normal Saline 0.9%) 1,000 mls @ 1,000 mls/hr IV [place]OL[place] ONE Stop: 09/18/23 14:16 Last Infusion: 09/18/23 14:27 Dose: Infused Documented By: Admin: 09/18/23 13:34 Dose: 1,000 mls/hr Documented By: FELIZ Metronidazole (Flagyl) 500 mg in 100 mls @ 100 mls/hr IV NOW ONE Stop: 09/18/23 15:27 Last Admin: 09/18/23 15:42 Dose: Not Given Documented By: ADEN Ciprofloxacin (Cipro) 400 mg in 200 mls @ 200 mls/hr IV NOW ONE Stop: 09/18/23 15:29 Last Infusion: 09/18/23 17:00 Dose: Infused Documented By: Admin: 09/18/23 15:12 Dose: 200 mls/hr Documented By: FELIZ Ciprofloxacin (Cipro) 200 mg in 100 mls @ 100 mls/hr IV Q12H [facility] Last Admin: 09/18/23 16:09 Dose: Not Given Documented By: ADEN Metronidazole (Flagyl) 500 mg in 100 mls @ 100 mls/hr IV Q8H [facility] Last Admin: 09/18/23 16:10 Dose: Not Given Documented By: ADEN Ketorolac Tromethamine (Ketorolac 30 Mg/Ml Vial) 15 mg IV NOW ONE Stop: 09/18/23 14:32 Last Admin: 09/18/23 16:07 Dose: Not Given Documented By: ADEN Vital Signs Vital signs: Vital Signs - 8 hr 09/18/23 12:48 09/18/23 13:44 09/18/23 14:00 Temperature 98.1 F 97.6 F Pulse Rate 89 Respiratory Rate 14 18 14 Blood Pressure 123/79 122/71 Pulse Oximetry 99 100 Oxygen Delivery Method Room Air Room Air 09/18/23 14:01 09/18/23 14:33 Temperature Pulse Rate 77 74 Respiratory Rate 18 16 Blood Pressure 110/65 121/72 Pulse Oximetry 100 100 Oxygen Delivery Method Room Air MDM - Abdominal Pain <Mirna Ramirez PA-C - Last Filed: 09/18/23 17:45> Differential Diagnosis Differential diagnosis: Likely abdominal pain, acute appendicitis, constipation, diverticulitis, pancreatitis, small bowel obstruction and other (Peritonitis) Lab Data 09/18/23 13:16 09/18/23 13:16 Labs: Lab Results 09/18/23 Range/Units 13:16 WBC 4.7 (4.5-11.0) X10^3/uL RBC 4.08 (4.0-5.2) X10^6/uL Hgb 13.0 (12.0-16.0) g/dL Hct 38.3 (36-46) % MCV 93.8 (80-100) fL MCH 31.7 (26-34) PG MCHC 33.9 (30-36) % RDW 13.0 (11.6-14.8) % Plt Count 240 (150-400) X10^3/uL Neut % (Auto) 53.2 (50-75) % Lymph % (Auto) 27.2 (25-40) % [place] % (Auto) 13.6 (3-14) % Eos % (Auto) 4.8 H (2-4) % Baso % (Auto) 1.2 (0-2) % Neut # (Auto) 2500 (6922-6180) /uL Lymph # (Auto) 1300 (4012-2681) /uL [place] # (Auto) 600 (0-900) /uL Eos # (Auto) 200 (0-450) /uL Baso # (Auto) 100 (0-100) /uL Sodium 135 L (137-145) mmol/L Potassium 4.4 (3.4-5.1) mmol/L Chloride 108 H (98-107) mmol/L Carbon Dioxide 19 L (22-32) mmol/L BUN 12 (7-17) mg/dL Creatinine 0.70 (0.52-1.04) mg/dL Estimated GFR > 60 (>60) mL/min BUN/Creatinine Ratio 17.1 (6-22) Glucose 86 (70-100) mg/dL Calcium 9.4 (8.4-10.2) mg/dL Total Bilirubin 0.6 (0.2-1.3) mg/dL AST 24 (14-36) IU/L ALT 16 (<35) IU/L Alkaline Phosphatase 70 (38-126) U/L C-Reactive Protein 0.7 (<1.0) mg/dL Total Protein 9.3 H (6.3-8.2) g/dL Albumin 4.2 (3.5-5.0) g/dL Globulin 5.1 H (1.7-4.1) g/dL Albumin/Globulin Ratio 0.8 L (1.0-2.8) Lipase 81 (23-300) U/L Imaging Data CT scan - abdomen/pelvis: My Impression: Agree with Radiology interpretation Radiologist's Impression: [address] [address] [address] Scan Report Signed Patient: Alisha Hahn MR#: [id number] : 1970 Acct:[id number] Age/Sex: 53 / F Date of Service: 09/18/23 Loc: ED Accession Number: [id number] Procedure: CT abdomen pelvis w con Ordering Provider: Mirna Ramirez P.A-C PROCEDURE: CT ABDOMEN PELVIS W CON INDICATIONS: severe abdominal pain x 5 days, generalized, worse w/eating TECHNIQUE: After the administration of intravenous contrast, axial sections acquired from the lung bases to the pubic symphysis. Coronal and sagittal reformats were performed. For radiation dose reduction, the following was used: automated exposure control, adjustment of mA and/or kV according to patient size. COMPARISON: [facility], CT, CT ABDOMEN PELVIS W CON, 06/03/2022, 10:15. [facility], CT, ABDOMEN/PELVIS WITH CONTRAST, 11/29/2017, 23:53. FINDINGS: Image quality: Diagnostic. Lower Chest: No significant findings. ABDOMEN: Liver: No solid mass. A previously visualized presumed hemangioma is poorly seen by the current study given differences in phases of enhancement. It remains present but may be slightly smaller. Gallbladder: No radiopaque gallstones or wall thickening. Biliary ducts: No biliary dilation. Pancreas: No ductal dilation. Spleen: Size is within normal limits. Adrenal Glands: No adrenal nodules. Kidneys and Ureters: No hydronephrosis. No solid mass. No complex renal cystic lesion which requires follow up. Stomach and Bowel: Normal colonic caliber, without significant wall thickening. Peritoneum: No abnormal intraperitoneal fluid. No free air. Ventral Wall: No hernia. Abdominal Nodes: No retroperitoneal or mesenteric adenopathy by size criteria. Vessels: Aorta and inferior vena cava are normal in size. PELVIS: Pelvic Organs: Unremarkable. Bladder: Unremarkable. Pelvic Nodes: No enlarged lymph nodes. Miscellaneous: No inguinal hernias are seen. Deep within the posterior right lower pelvis is a tubular inflamed structure that is not particularly dilated but now fluid-filled with an appearance consistent with a relatively elongated appendix as can be seen on a prior CT scan from November of 2017 but which currently is inflamed with adjacent free fluid at its inferior tip. Bones: No aggressive osseous abnormality. IMPRESSION: Presumed acute appendicitis, with a small amount of free fluid at its inferior tip, given the presence of a inflamed fluid-filled tubular structure extending from the right lower quadrant into the right posterior cul-de-sac. Findings immediately called to the emergency room physician who will convey this information to the ordering healthcare provider also in the emergency room. Dictated by: Jamin Knutson M.D. on 09/18/2023 at 13:58 Approved by: Jamin Knutson M.D. on 09/18/2023 at 14:08 Treatment and Disposition Shared decision making:: Shared decision-making was used in determining plan of care, plan for labs and imaging today and plan for admission MDM Narrative Medical decision making narrative: This is a fairly well-appearing stoic 53-year-old woman with history of hypothyroid previous episode of diverticulitis based on chart review as well as previous episode of enterocolitis who presents to the emergency department today with 5-1/2 days of abdominal pain which is currently generalized but began in the epigastric region and then migrated to the low abdomen. Patient initially requests only an x-ray and an ultrasound as this is what her primary care provider recommended when she was seen 2 days prior and found to have normal labs. Patient's labs were requested and faxed to our facility for review. However based on exam patient has peritoneal signs and is quite tender throughout, her vitals are unremarkable however given no bowel movement for 5 days and significant tender abdomen patient is agreeable to CT scan for further evaluation as well as repeat labs which returns positive for acute appendicitis with a long appendix and tip inflammation which likely explains her generalized abdominal symptoms/pain. Her labs are quite unremarkable with no leukocytosis and CRP is also not elevated. She was given a 1 L isotonic fluid bolus on presentation to the emergency department. After imaging returned showing appendicitis ciprofloxacin and Flagyl IV were initiated. Surgery was consulted regarding this patient and discussed plan with the patient who is agreeable for admission with surgery tomorrow. Pain was treated with oral medication in fast track as ordered by genreal surgery prior to pt going to the floor. Patient is admitted to general surgery under observation with plan for appendectomy tomorrow. <Aly Rufino, DO - Last Filed: 09/18/23 17:50> Lab Data Labs: Lab Results 09/18/23 Range/Units 13:16 WBC 4.7 (4.5-11.0) X10^3/uL RBC 4.08 (4.0-5.2) X10^6/uL Hgb 13.0 (12.0-16.0) g/dL Hct 38.3 (36-46) % MCV 93.8 (80-100) fL MCH 31.7 (26-34) PG MCHC 33.9 (30-36) % RDW 13.0 (11.6-14.8) % Plt Count 240 (150-400) X10^3/uL Neut % (Auto) 53.2 (50-75) % Lymph % (Auto) 27.2 (25-40) % [place] % (Auto) 13.6 (3-14) % Eos % (Auto) 4.8 H (2-4) % Baso % (Auto) 1.2 (0-2) % Neut # (Auto) 2500 (3941-9828) /uL Lymph # (Auto) 1300 (2174-9290) /uL [place] # (Auto) 600 (0-900) /uL Eos # (Auto) 200 (0-450) /uL Baso # (Auto) 100 (0-100) /uL Sodium 135 L (137-145) mmol/L Potassium 4.4 (3.4-5.1) mmol/L Chloride 108 H (98-107) mmol/L Carbon Dioxide 19 L (22-32) mmol/L BUN 12 (7-17) mg/dL Creatinine 0.70 (0.52-1.04) mg/dL Estimated GFR > 60 (>60) mL/min BUN/Creatinine Ratio 17.1 (6-22) Glucose 86 (70-100) mg/dL Calcium 9.4 (8.4-10.2) mg/dL Total Bilirubin 0.6 (0.2-1.3) mg/dL AST 24 (14-36) IU/L ALT 16 (<35) IU/L Alkaline Phosphatase 70 (38-126) U/L C-Reactive Protein 0.7 (<1.0) mg/dL Total Protein 9.3 H (6.3-8.2) g/dL Albumin 4.2 (3.5-5.0) g/dL Globulin 5.1 H (1.7-4.1) g/dL Albumin/Globulin Ratio 0.8 L (1.0-2.8) Lipase 81 (23-300) U/L Discharge Plan Departure Patient Disposition: Admitted as Observation Clinical Impression: Acute appendicitis Qualifiers: Acute appendicitis type: with generalized peritonitis Appendicitis gangrene presence: unspecified whether gangrene present Appendicitis perforation presence: without perforation Appendicitis abscess presence: unspecified whether abscess present Qualified Code(s): K35.200 - Acute appendicitis with generalized peritonitis, without perforation or abscess Admit Date/Time: 09/18/23 14:38 Admit Provider: Burt James ED Sign-out <Aly Joy DO - Last Filed: 09/18/23 17:50> Cosign ED Attending Cosignature Attestation: Dr Joy Co-Sign Statement: I was available for consultation during this patient's emergency department visit. This chart is signed by myself for administrative purposes only. I did not have direct contact with this patient during this visit. They were seen independently by the APC.
[2023-09-18 13:34] LABS: Add Manual Diff / Slide Review NO; Basophils Absolute Auto 100 /uL (0-100); Basophils Percent Auto 1.2 % (0-2); Eosinophils Absolute Auto 200 /uL (0-450); Eosinophils Percent Auto 4.8 % (2-4); Hematocrit 38.3 % (36-46); Lymphocytes Absolute Auto 1300 /uL (1100-4500); Lymphocytes Percent Auto 27.2 % (25-40); Mean Corpuscular HGB Conc 33.9 % (30-36); Mean Corpuscular Hemoglobin 31.7 PG (26-34); Mean Corpuscular Volume 93.8 fL (80-100); Monocytes Absolute Auto 600 /uL (0-900); Monocytes Percent Auto 13.6 % (3-14); Neutrophils Absolute Auto 2500 /uL (1500-7000); Neutrophils Percent Auto 53.2 % (50-75); Platelet Count 240 X10^3/uL (150-400); Red Blood Cell Count 4.08 X10^6/uL (4.0-5.2); White Blood Cell Count 4.7 X10^3/uL (4.5-11.0)
[2023-09-18] MEDS: SODIUM CHLORIDE 0.9% 1,000 ML 1000 ML IV (13:34)
[2023-09-18 13:48] LABS: Alanine Aminotransferase 16 IU/L (<35); Albumin 4.2 g/dL (3.5-5.0); Albumin Globulin Ratio 0.8 (1.0-2.8); Alkaline Phosphatase 70 U/L (38-126); Aspartate Aminotransferase 24 IU/L (14-36); BUN Creatinine Ratio 17.1 (6-22); Bilirubin Total 0.6 mg/dL (0.2-1.3); Blood Urea Nitrogen 12 mg/dL (7-17); Calcium 9.4 mg/dL (8.4-10.2); Carbon Dioxide 19 mmol/L (22-32); Chloride 108 mmol/L (98-107); Estimated Glomerular Filt Rate > 60 mL/min (>60); Globulin 5.1 g/dL (1.7-4.1); Glucose 86 mg/dL (70-100); HEMOLYSIS 37 (0-50); Lipase 81 U/L (23-300); Potassium 4.4 mmol/L (3.4-5.1); Sodium 135 mmol/L (137-145); Total Protein 9.3 g/dL (6.3-8.2)
[2023-09-18 13:52] LABS: C-Reactive Protein Quant 0.7 mg/dL (<1.0)
[2023-09-18] MEDS: CIPROFLOXACIN 400 MG/200 ML PIGGYBACK 200 MG IV (15:12)
[2023-09-18] MEDS: OXYCODONE IR 5 MG TABLET PO ×2 (15:15→20:33)
[2023-09-18] MEDS: metroNIDAZOLE 500 MG/100 ML PIGGYBACK 100 MG IV (17:06)
[2023-09-18] MEDS: DEXTROSE 5%-0.45% NS 1,000 ML 100 ML IV (17:12)
--- NOTE | 2023-09-18 17:12 | PC.NURSE ---
Patient arrived to room 222 at 1550 this afternoon. She is A&OX4, VSS on RA. She is independent in the room. She denies n/v or abdominal pain. She tolerates cipro and flagyl well. MD James called and confirmed patient ok to have clear liquids this evening. Admission assessment completed, call light in reach, oriented to room, med reconciliation completed, and frequent monitoring.
--- NOTE | 2023-09-18 18:39 | P.HP_ITS ---
History of Present Illness History of Present Illness Date Patient Seen: 09/18/23 Time Patient Seen: 18:39 Chief complaint: abdominal pain Narrative: 53-year-old woman PMH, active tobacco use, hypothyroidism admitted to [facility] for acute appendicitis. She developed severe centralized abdominal pain today and presented to the emergency department for further evaluation. She reports vague generalized abdominal pain proceeding this for several days. At admission afebrile laboratory studies unremarkable. CT abdomen pelvis demonstrates a slightly dilated appendix with scant free fluid. Prior abdominal surgery includes laparoscopic hysterectomy. [facility] Medical History Greater trochanteric bursitis of right hip Encounter for smoking cessation counseling Somatic dysfunction of abdominal region Psoas muscle strain Greater trochanteric bursitis of right hip Dizziness Insomnia disorder, with non-sleep disorder mental comorbidity Fatigue Tobacco abuse disorder Chronic pain Lumbar spine pain Cervical spine disease Hypothyroidism Chronic back pain Depression Anxiety Surgical History Status post hysterectomy Social History marital status: household members: spouse Smoking Status: Current every day smoker alcohol intake: never substance use type: does not use Meds Home Medications and Allergies Home Medications Medication Instructions Recorded Confirmed Type paroxetine HCl 20 mg tablet See Rx Instructions .Route 04/09/20 09/18/23 Rx .COMPLEX #60 tabs levothyroxine 100 mcg tablet See Rx Instructions .Route 07/23/20 09/18/23 Rx .COMPLEX #30 tabs duloxetine 60 mg PO DAILY 09/18/23 09/18/23 History gabapentin 300 mg capsule 300 mg PO BEDTIME 09/18/23 09/18/23 History Allergies Allergy/AdvReac Type Severity Reaction Status Date / Time codeine [CODEINE] Allergy Severe ANAPHYLAXIS Verified 09/18/23 12:52 Penicillins [PENICILLINS] Allergy Severe ANAPHYLAXIS Verified 09/18/23 12:52 shellfish derived Allergy Severe CRAB, Verified 09/18/23 12:52 [SHELLFISH DERIVED] SWELLING AIRWAIR CLOSED latex [LATEX] Allergy Mild rash Verified 09/18/23 12:52 Exam Vital Signs (past 8 hours): - 09/18/23 12:48 09/18/23 13:44 09/18/23 14:00 Temperature 98.1 F 97.6 F Pulse Rate 89 Respiratory Rate 14 18 14 Blood Pressure 123/79 122/71 Pulse Oximetry 99 100 Oxygen Delivery Method Room Air Room Air Oxygen Flow Rate 09/18/23 14:01 09/18/23 14:33 09/18/23 14:48 Temperature 97.1 F L Pulse Rate 77 74 70 Respiratory Rate 18 16 21 Blood Pressure 110/65 121/72 131/81 Pulse Oximetry 100 100 97 Oxygen Delivery Method Room Air Oxygen Flow Rate 0 09/18/23 15:32 09/18/23 16:00 Temperature Pulse Rate 76 Respiratory Rate 16 Blood Pressure 126/80 Pulse Oximetry 100 100 Oxygen Delivery Method Room Air Oxygen Flow Rate Oxygen Delivery Method Room Air Oxygen Flow Rate 0 Narrative Exam Narrative: General adult woman alert oriented no acute distress Chest nonlabored respiration Abdomen mild right lower quadrant tenderness no peritonitis. Objective Labs 09/18/23 13:16 09/18/23 13:16 Labs: Laboratory Results - last 24 hr 09/18/23 13:16 WBC 4.7 RBC 4.08 Hgb 13.0 Hct 38.3 MCV 93.8 MCH 31.7 MCHC 33.9 RDW 13.0 Plt Count 240 Neut % (Auto) 53.2 Lymph % (Auto) 27.2 [place] % (Auto) 13.6 Eos % (Auto) 4.8 H Baso % (Auto) 1.2 Neut # (Auto) 2500 Lymph # (Auto) 1300 [place] # (Auto) 600 Eos # (Auto) 200 Baso # (Auto) 100 Sodium 135 L Potassium 4.4 Chloride 108 H Carbon Dioxide 19 L BUN 12 Creatinine 0.70 Estimated GFR > 60 BUN/Creatinine Ratio 17.1 Glucose 86 Calcium 9.4 Total Bilirubin 0.6 AST 24 ALT 16 Alkaline Phosphatase 70 C-Reactive Protein 0.7 Total Protein 9.3 H Albumin 4.2 Globulin 5.1 H Albumin/Globulin Ratio 0.8 L Lipase 81 Assessment & Plan Assessment and plan (1) Acute appendicitis: Qualifiers: Acute appendicitis type: with generalized peritonitis Appendicitis abscess presence: unspecified whether abscess present Appendicitis gangrene presence: unspecified whether gangrene present Appendicitis perforation presence: without perforation Qualified Code(s): K35.200 - Acute appendicitis with generalized peritonitis, without perforation or abscess Status: Acute Assessment & Plan narrative: 53-year-old woman PMH active tobacco use, hypothyroidism admitted with acute appendicitis. Laboratory studies and imaging personally reviewed consistent with early/mild appendicitis without abscess. Discussed management options with patient including medical therapy with antibiotics versus appendectomy. Following discussion preference is to proceed with surgery, planned for ThursdaySeptember 19 Quality VTE Deep Vein Thrombosis/Pulmonary Embolism Present on Admission: Yes
[2023-09-18] MEDS: GABAPENTIN 300 MG CAPSULE PO (20:33)
[2023-09-19] VITALS (15 sets, daily range): BP systolic 101–136; BP diastolic 62–83; PULSE 62–101; RESP 12–16; TEMP 36.1–37.1; O2SAT 95–100
--- NOTE | 2023-09-19 | PATH_ITS ---
[facility] Accession Number: [id number] No. of containers..01 Tissue . 01 Material submitted: . appendix - APPENDIX . 01 Diagnosis: Appendix, Appendectomy: Acute appendicitis. [facility] 09/23/2023 1133 Local . 01 Electronically signed: . Madina Garay MD, Pathologist NPI- [id number] . 01 Gross description: . The specimen is received in formalin labeled with the patient's name, , and appendix, consists of a vermiform appendix measuring 5.3 cm in length by 0.7 cm in diameter with murray, smooth serosa, and a small amount of mesoappendix extending out to 0.9 cm. The margin is inked blue. Sectioning reveals a patent lumen averaging 0.5 cm in diameter, filled with brown semi-solid material. The garibay average 0.1 cm thick with no perforations or lesions identified. [employer] sections to include the margin, one-half of the distal tip, and cross sections are submitted in cassette A1. ([id number]) /MRV 09/22/2023 1339 Local . 01 Pathologist provided ICD-10: K35.200 . 01 CPT . 186952 Specimen Comment: A courtesy copy of this report has been sent to [phone] Performed at: 01 [facility] [address] [place] [address], [place], [place] [id number] MD Rolando Escamilla MD Phone: [phone]
[2023-09-19] MEDS: metroNIDAZOLE 500 MG/100 ML PIGGYBACK 100 MG IV (00:38)
[2023-09-19] MEDS: CIPROFLOXACIN 200 MG/100 ML PIGGYBACK IV (03:26)
[2023-09-19] MEDS: DEXTROSE 5%-0.45% NS 1,000 ML 100 ML IV (06:23)
--- NOTE | 2023-09-19 08:39 | PM.PREOP ---
Pre-operative Note COVID-19 COVID-19 status: Not tested Interval Note History & Physical reviewed/Exam performed by Physician: Yes Changes to H&P: No ASA Class (for procedural sedation): II
[2023-09-19] MEDS: LACTATED RINGERS 1,000 ML 42 ML IV (08:40)
[2023-09-19] MEDS: ACETAMINOPHEN IV 1,000 MG/100 ML VIAL 400 MG IV (08:57)
--- NOTE | 2023-09-19 09:23 | SUR.OPER ---
Supine on padded OR bed, head on pillow, right arm secured on padded arm boards at <90 degrees abduction, left arm padded with gel pad and tucked at sides, legs uncrossed, safety belt at thigh, tape over blanket over lower legs.
[2023-09-19] MEDS: BUPIVACAINE 0.5% (PF) 30 ML, EPINEPHrine 0.15 MG INJ (09:30)
--- NOTE | 2023-09-19 09:51 | PM.OP.1 ---
Operative Date/Time/Diagnoses Date of procedure: 09/19/23 Time of procedure: 09:51 Pre-op diagnosis: Acute appendicitis Post-op diagnosis: same Procedure & Clinicians Procedure: Laparoscopic appendectomy Same procedure as scheduled: Yes Surgeon: Joseph Chapin Anesthesia Type: General Operative Notes Procedure in detail: The patient was on scheduled IV antibiotics. The patient was brought to the operating room, placed on the table in the supine position and general endotracheal anesthesia was induced. A time-out was performed. The abdomen was prepped and draped in the usual fashion. After injection of 0.25% Marcaine a 1 cm infraumbilical incision was created with a 15 blade scalpel. The umbilical stalk was grasped with a David clamp to elevate the abdominal wall. The infraumbilical midline fascia was cleared over 1 cm and the fascia was scored with cautery. The peritoneum was pierced with a Peon clamp. The Jeanette port was placed and the abdomen was insufflated to 15 mmHg. The camera was inserted and there was no evidence of any injury from the entry. Next, 5 mm ports were placed in the suprapubic and left lower quadrant positions under direct vision. The patient was placed in Trendelenburg with the right-side elevated. The terminal ileum was swept away from the cecum and the appendix was visualized. The appendix was mildly distended but minimally inflamed. A few thin adhesions of the mesoappendix to sidewall were divided sharply. The mesoappendix was divided with the Power-seal to the base of the appendix. Two PDS Endoloops were placed at the base and a 3rd endoloop was placed about a cm distally and the appendix was divided sharply. The specimen was placed in a Endo-Catch bag. A small amount of fluid with suctioned from the base of the appendix and pelvis. The table was flattened and the terminal ileum and omentum were allowed to slide in over the appendiceal stump. Finally, the 5 mm ports were removed under direct vision. The pneumoperitoneum was released and the Jeanette port was removed followed by the Endo-Catch bag. Additional local was injected into the fascia and the infraumbilical incision was closed with 2 interrupted 2-0 Vicryl sutures. The skin incisions were closed with 4 Monocryl. Steri-Strips were applied followed by Band-Aids. EBL: 5 mL Specimen: Appendix Post-operative Condition: stable Disposition: PACU
[2023-09-19] MEDS: ACETAMINOPHEN 325 MG TABLET 975 MG PO (11:28)
--- NOTE | 2023-09-19 13:19 | CM.DANOTE ---
DCP: Case received, EMR reviewed and met with patient. Introduced self and role. Completed DCP assessment based upon information currently available. Patient is a 53 year old female who admitted yesterday afternoon to the care of the hospitalist/surgical team. PCP: Dr. Elizalde. Payer: confirmed: [employer]/Medicaid. Patient came to the hospital via private vehicle secondary to having abdominal pain. Patient had indicated that over the last couple of days the pain started high up in her stomach, and traveled, but began low in her belly. She also indicated the pain was worse with eating, had been eating less. After abdominal scan, patient was noted to have acute appendicitis without evidence of perforation. Patient has her surgery this morning, she had a laparoscopic appendectomy. Met with patient in her room post surgery. She is alert, did already have some lunch. Stated, she had seen her doctor recently for these symptoms, was going to have a scan of her abdomen, but not until September. She stated, she could not wait that long, the pain was getting worse, so she came here. Confirmed that she resides here in [place] with her spouse, Bipin. She is independent at her baseline. Her primary provider is Dr. Elizalde in [facility]. P: DCP to continue to follow. Patient hopes that she can go home today. Lise Causey RN/Patient Assessment Coordinator Discharge Planning/Care Management CM Discharge Assessment Start: 09/19/23 13:17 Freq: Status: Active Protocol: Document 09/19/23 13:18 (Rec: 09/19/23 13:19 [id number]) Discharge Planning Assessment Assigned Social Work Nurse Lise Causey RN/Patient Assessment Coordinator Advance Directives? No History Provided By Patient Has Patient been admitted in last 30 No days? Prior Living Arrangements Apartment/Condo Household Members spouse Type of transporation used prior to Drives own vehicle admit Independent with ADL's Yes Is patient alert and oriented? Yes Caregiver for Another No Barriers to Discharge No Discharge Plan Home Transportation Arrangement Spouse Referrals Initiated None needed Whiteboard Updated in Patient Room with Yes name and ext. # of Social Work Nurse Review Status In Process Next Review Type Continued Stay Review
--- NOTE | 2023-09-19 13:29 | PC.NURSE ---
Addendum entered by Radha Clayton R.N. 09/19/23 14:14: Pt D/C instructions given w/ understanding SL D/C intact. Denies discomfort. Pt escorted by staff via W/C to waiting vehicle. D/C in stable post op status. Original Note: Pt returned from PACU at 1015 A/O, med x 1 for discomfort w/ Tylenol w/ good relief, Lap sites CDI Awaiting D/C orders from MD Call light w/in reach, pt calls appropriately for needs.
== END 2023-09-19 14:15 | disposition home or self-care (01) ==
LOC: ED 14:32 → AC 14:40
PROVIDERS: Surgery; Admitting Provider Surgery; Emergency Provider Student in an Organized Health Care Education/Training Program; PCP Internal Medicine Geriatric Medicine; Referring Provider Student in an Organized Health Care Education/Training Program; Visit Provider Surgery
PROC: 0DTJ4ZZ Resection of Appendix, Percutaneous Endoscopic Approach (ICD-10-PCS; CPT 44970; principal; 2023-09-19 11:00)
DX: R10.9 Unspecified abdominal pain (principal)
CPT/HCPCS: 44970; 36415; 74177; 80053; 81003; 83690; 85025; 86140; 96361; 96365; 96366; 96375; 99222; 99284; G0378; J0136; J0171; J0330; J0744; J1100; J2405; J2704; J3010; Q9967

== ENCOUNTER 2023-11-18 20:09 | Emergency (ER) | payer OTHER, MEDICAID, SELFPAY ==
[2023-09-18 16:00] VITALS: BMI 24.5
[2023-11-18 20:17] VITALS: BP 130/90; PULSE 112; RESP 20; TEMP 37.3; O2SAT 99; BMI 24.7
[2023-11-18 20:48] LABS: Add Manual Diff / Slide Review NO; Basophils Absolute Auto 100 /uL (0-100); Eosinophils Absolute Auto 400 /uL (0-450); Eosinophils Percent Auto 5.6 % (2-4); Hematocrit 37.7 % (36-46); Hemoglobin 12.7 g/dL (12.0-16.0); Lymphocytes Absolute Auto 2000 /uL (1100-4500); Mean Corpuscular HGB Conc 33.8 % (30-36); Mean Corpuscular Hemoglobin 31.4 PG (26-34); Mean Corpuscular Volume 93.1 fL (80-100); Monocytes Absolute Auto 800 /uL (0-900); Monocytes Percent Auto 12.1 % (3-14); Neutrophils Absolute Auto 3600 /uL (1500-7000); Neutrophils Percent Auto 52.3 % (50-75); Platelet Count 241 X10^3/uL (150-400); Red Blood Cell Count 4.06 X10^6/uL (4.0-5.2); Red Cell Distribution Width 13.9 % (11.6-14.8); White Blood Cell Count 6.9 X10^3/uL (4.5-11.0)
--- NOTE | 2023-11-18 21:00 | PC.NURSE ---
pt reports not being able to urinate at this time.
[2023-11-18 21:05] LABS: Alanine Aminotransferase 15 IU/L (<35); Albumin Globulin Ratio 0.8 (1.0-2.8); Alkaline Phosphatase 82 U/L (38-126); Aspartate Aminotransferase 25 IU/L (14-36); BUN Creatinine Ratio 20.3 (6-22); Bilirubin Total 0.5 mg/dL (0.2-1.3); Blood Urea Nitrogen 16 mg/dL (7-17); Carbon Dioxide 25 mmol/L (22-32); Chloride 108 mmol/L (98-107); Estimated Glomerular Filt Rate > 60 mL/min (>60); Globulin 4.8 g/dL (1.7-4.1); Glucose 92 mg/dL (70-100); HEMOLYSIS < 15 (0-50); Lipase 51 U/L (23-300); Potassium 4.2 mmol/L (3.4-5.1); Sodium 137 mmol/L (137-145); Total Protein 8.8 g/dL (6.3-8.2)
--- NOTE | 2023-11-18 21:16 | ED_ITS ---
HPI - General Adult General Chief complaint: Abdominal Pain Stated complaint: severe abd pain Time Seen by Provider: 11/18/23 20:51 Source: patient Mode of arrival: Ambulatory History of Present Illness HPI narrative: Patient is a 53-year-old female. Approximately 48 hours ago she started to sharp lower abdominal discomfort. She states that yesterday she had diarrhea and some nausea. The nausea has since improved but she is still having the lower abdominal discomfort. States she feels like it gets worse when she eats. The diarrhea seems to improved as well. No fevers. She did recently have a appendectomy. No chest pain or shortness of breath. Related Data Home Medications Medication Instructions Recorded Confirmed duloxetine 60 mg capsule,delayed 60 mg PO DAILY 09/18/23 10/05/23 release gabapentin 300 mg capsule 300 mg PO BEDTIME 09/18/23 10/05/23 Previous Rx's Medication Instructions Recorded paroxetine HCl 20 mg tablet See Rx Instructions .Route 04/09/20 .COMPLEX #60 tabs levothyroxine 100 mcg tablet See Rx Instructions .Route 07/23/20 .COMPLEX #30 tabs Allergies Allergy/AdvReac Type Severity Reaction Status Date / Time codeine [CODEINE] Allergy Severe ANAPHYLAXIS Verified 10/05/23 12:52 Penicillins [PENICILLINS] Allergy Severe ANAPHYLAXIS Verified 10/05/23 12:52 shellfish derived Allergy Severe CRAB, Verified 10/05/23 12:52 [SHELLFISH DERIVED] SWELLING AIRWAIR CLOSED latex [LATEX] Allergy Mild rash Verified 10/05/23 12:52 Review of Systems Review of Systems Narrative: See HPI Patient History Medical History Greater trochanteric bursitis of right hip Encounter for smoking cessation counseling Somatic dysfunction of abdominal region Psoas muscle strain Greater trochanteric bursitis of right hip Dizziness Insomnia disorder, with non-sleep disorder mental comorbidity Fatigue Tobacco abuse disorder Chronic pain Lumbar spine pain Cervical spine disease Hypothyroidism Chronic back pain Depression Anxiety Surgical History Status post hysterectomy Social History marital status: household members: spouse Smoking Status: Current every day smoker alcohol intake: never substance use type: does not use Smoking Status: Current every day smoker alcohol intake frequency: 0-2 drinks per day Substance Use Type: does not use Exam Initial Vital Signs Initial Vital Signs: Vital Signs Temperature 99.1 F 11/18/23 20:17 Pulse Rate 112 H 11/18/23 20:17 Respiratory Rate 20 11/18/23 20:17 Blood Pressure 130/90 11/18/23 20:17 Pulse Oximetry 99 11/18/23 20:17 Oxygen Delivery Method Room Air 11/18/23 20:17 Const General: cooperative, comfortable and No ill appearing HENMT Head: normal to inspection and normocephalic Resp Effort & Inspection: normal respiratory effort Auscultation: clear to auscultation bilaterally Cardio Rate: regular rate Rhythm: regular rhythm GI Inspection: normal to inspection and distended Palpation: soft, No firm, No guarding and tender (Diffuse) Neuro General: patient alert, patient awake and moves all extremities Extrem General: normal to inspection and capillary refill normal Course Orders Ordered: ED Orders 11/18/23 20:32 EKG-12 Lead Stat 11/18/23 20:39 Complete Blood Count AUTO DIFF Stat Comprehensive Metabolic Panel Stat Lipase Stat 11/18/23 21:17 CT abdomen pelvis w con Stat Discontinued Medications Ondansetron HCl (Ondansetron 4 Mg/2 Ml Inj) 4 mg IV NOW PRN PRN Reason: Nausea And Vomiting Ondansetron HCl (Ondansetron 4 Mg Odt) 4 mg PO NOW PRN PRN Reason: Nausea And Vomiting Ondansetron HCl (Ondansetron 4 Mg Odt Prepack) 1 bottle MISC DIRECTED ONE Stop: 11/18/23 22:21 Last Admin: 11/18/23 22:28 Dose: 1 bottle Documented By: ANTONIETTA Vital Signs Vital signs: Vital Signs - 8 hr 11/18/23 20:17 11/18/23 21:38 11/18/23 22:00 Temperature 99.1 F Pulse Rate 112 H 90 80 Respiratory Rate 20 17 Blood Pressure 130/90 Pulse Oximetry 99 99 99 Oxygen Delivery Method Room Air Room Air 11/18/23 22:29 Temperature 98.2 F Pulse Rate 78 Respiratory Rate 18 Blood Pressure 119/72 Pulse Oximetry 99 Oxygen Delivery Method Room Air Medical Decision Making Lab Data Lab results reviewed: Yes I reviewed the patient's lab results. 11/18/23 20:39 11/18/23 20:39 Labs: Lab Results 11/18/23 Range/Units 20:39 WBC 6.9 (4.5-11.0) X10^3/uL RBC 4.06 (4.0-5.2) X10^6/uL Hgb 12.7 (12.0-16.0) g/dL Hct 37.7 (36-46) % MCV 93.1 (80-100) fL MCH 31.4 (26-34) PG MCHC 33.8 (30-36) % RDW 13.9 (11.6-14.8) % Plt Count 241 (150-400) X10^3/uL Neut % (Auto) 52.3 (50-75) % Lymph % (Auto) 29.0 (25-40) % [place] % (Auto) 12.1 (3-14) % Eos % (Auto) 5.6 H (2-4) % Baso % (Auto) 1.0 (0-2) % Neut # (Auto) 3600 (2533-5126) /uL Lymph # (Auto) 2000 (6929-6917) /uL [place] # (Auto) 800 (0-900) /uL Eos # (Auto) 400 (0-450) /uL Baso # (Auto) 100 (0-100) /uL Sodium 137 (137-145) mmol/L Potassium 4.2 (3.4-5.1) mmol/L Chloride 108 H (98-107) mmol/L Carbon Dioxide 25 (22-32) mmol/L BUN 16 (7-17) mg/dL Creatinine 0.79 (0.52-1.04) mg/dL Estimated GFR > 60 (>60) mL/min BUN/Creatinine Ratio 20.3 (6-22) Glucose 92 (70-100) mg/dL Calcium 9.0 (8.4-10.2) mg/dL Total Bilirubin 0.5 (0.2-1.3) mg/dL AST 25 (14-36) IU/L ALT 15 (<35) IU/L Alkaline Phosphatase 82 (38-126) U/L Total Protein 8.8 H (6.3-8.2) g/dL Albumin 4.0 (3.5-5.0) g/dL Globulin 4.8 H (1.7-4.1) g/dL Albumin/Globulin Ratio 0.8 L (1.0-2.8) Lipase 51 (23-300) U/L Imaging Data CT scan - abdomen/pelvis: Radiologist's Impression: PROCEDURE: CT ABDOMEN PELVIS W CON INDICATIONS: abd pain and distention TECHNIQUE: After the administration of intravenous contrast, axial sections acquired from the lung bases to the pubic symphysis. Coronal and sagittal reformats were performed. For radiation dose reduction, the following was used: automated exposure control, adjustment of mA and/or kV according to patient size. COMPARISON: [facility], CT, CT ABDOMEN PELVIS W CON, 09/18/2023, 13:40. FINDINGS: Image quality: Diagnostic. Lower Chest: No significant findings. ABDOMEN: Liver: No solid mass. Gallbladder: No radiopaque gallstones or wall thickening. Biliary ducts: No biliary dilation. Pancreas: No ductal dilation. Spleen: Size is within normal limits. Adrenal Glands: No adrenal nodules. Kidneys and Ureters: No hydronephrosis. No solid mass. No complex renal cystic lesion which requires follow up. Stomach and Bowel: Multiple long segments of small bowel wall thickening, with wall edema. Normal enhancement. Colonic diverticulosis without evidence of diverticulitis. Peritoneum: Small volume free fluid in the pelvis. Ventral Wall: No significant ventral hernia. Abdominal Nodes: No retroperitoneal or mesenteric adenopathy by size criteria. Vessels: Aorta and inferior vena cava are normal in size. PELVIS: Pelvic Organs: Unremarkable. Bladder: No bladder wall thickening, accounting for underdistention. Pelvic Nodes: No enlarged lymph nodes. Miscellaneous: No inguinal hernias are seen. Bones: No aggressive osseous abnormality. IMPRESSION: Enteritis, with multiple long segments of small bowel wall thickening and edema, either infectious or inflammatory. Normal enhancement. Patent central vasculature. ECG Data Attestation: I personally reviewed and interpreted this ECG as follows: Interpretation: Sinus rhythm Ventricular rate 82 Normal [place] Normal QRS Normal QTC No ST T wave changes MDM Narrative Medical decision making narrative: Patient is very well-appearing. She does have diffuse abdominal tenderness with some distention. Labs are unremarkable. CT scan shows enteritis which does fit her clinical presentation today. No signs of infection that would require antibiotics. No indication for surgical consultation. I discussed all this with the patient. We discussed conservative measures to include anti nausea medications and a bland diet. Discussed she potentially could have some diarrhea for the next couple days what she should just stay hydrated and return to the emergency department if her symptoms worsen. She expressed understanding and agreement with plan. Discharge Plan Departure Patient Disposition: Home Clinical Impression: Enteritis Instructions: DI for Enteritis Activity Restrictions/Additional Instructions: Recommend that you increase your fluid intake. Eat a bland diet. I suspect that your symptoms will improve over the next couple days. Return to the emergency department for new or worsening symptoms. Prescriptions: No Action paroxetine HCl 20 mg tablet See Rx Instructions .ROUTE .COMPLEX Qty: 60 0RF Dose Instruction: Take two tablets by mouth daily. Rx Instructions: Take two tablets by mouth daily. levothyroxine 100 mcg tablet See Rx Instructions .ROUTE .COMPLEX Qty: 30 5RF Dose Instruction: TAKE ONE TABLET BY MOUTH EVERY MORNING Rx Instructions: TAKE ONE TABLET BY MOUTH EVERY MORNING gabapentin 300 mg capsule 300 mg PO BEDTIME duloxetine 60 mg Capsule,Delayed Release(Dr/Ec) 60 mg PO DAILY Referrals: Christel Elizalde MD [Primary Care Provider] - Stand Alone Forms: Patient Portal/API
[2023-11-18 21:38] VITALS: PULSE 90; O2SAT 99
[2023-11-18 22:00] VITALS: PULSE 80; RESP 17; O2SAT 99
[2023-11-18] MEDS: ONDANSETRON 4 MG ODT PREPACK 1 BOTTLE MISC (22:28)
[2023-11-18 22:29] VITALS: BP 119/72; PULSE 78; RESP 18; TEMP 36.8; O2SAT 99
== END 2023-11-18 22:36 | disposition home or self-care (01) ==
PROVIDERS: Emergency Provider Emergency Medicine; PCP Internal Medicine Geriatric Medicine
DX: K52.9 Noninfective gastroenteritis and colitis, unspecified (principal)
CPT/HCPCS: 36415; 74177; 80053; 83690; 85025; 93005; 99283; 99284; Q9967

== ENCOUNTER 2024-02-07 15:52 | Emergency (ER) | payer OTHER, MEDICAID, SELFPAY ==
[2023-09-18 16:00] VITALS: BMI 24.5
[2024-02-07] VITALS (9 sets, daily range): BP systolic 126–164; BP diastolic 80–89; PULSE 77–104; RESP 16; TEMP 36.6; O2SAT 97–100; BMI 25.8
--- NOTE | 2024-02-07 15:58 | DI.US.S_ITS ---
PROCEDURE: US ABDOMEN LIMITED INDICATIONS: RUQ PAIN TECHNIQUE: Real-time focused scanning was performed of the abdomen, with image documentation. COMPARISON: [facility], US, ABDOMEN COMPLETE, 04/28/2014, 7:21. [facility], CT, CT ABDOMEN PELVIS W CON, 02/07/2024, 16:52. FINDINGS: The liver demonstrates normal size. The liver demonstrates generalized mildly increased echogenicity. This decreases ultrasound sensitivity for detection of hepatic masses. No findings of gallstones or sludge are seen. The gallbladder wall is not thickened, measuring 3 mm or less. No specific pericholecystic fluid is seen. The sonographic Dominguez sign is negative. There is no biliary dilatation, the common bile duct measures 5 mm. No significant pancreatic abnormality is seen on these images. IMPRESSION: The gallbladder demonstrates a normal sonographic appearance. No biliary dilatation is seen. The liver demonstrates mildly increased echogenicity. This finding is nonspecific, yet it is most commonly attributed to fatty infiltration. Dictated by: Sanjay Levine M.D. on 02/07/2024 at 16:02 Approved by: Sanjay Levine M.D. on 02/07/2024 at 16:05
--- NOTE | 2024-02-07 16:01 | ED_ITS ---
HPI - Abdominal Pain General Chief Complaint: Abdominal Pain Stated Complaint: abd pain Time Seen by Provider: 02/07/24 15:54 History of Present Illness HPI narrative: 53-year-old female presents by private vehicle from home for 4 days generalized lower abdominal pain and diarrhea. States she was had a history of diagnosed colitis in the past and this feels similar. Reports history of acute appendicitis in August 2023. No medications taken at home for symptoms. Denies nausea, vomiting, melena, hematochezia Related Data Home Medications Medication Instructions Recorded Confirmed duloxetine 60 mg capsule,delayed 60 mg PO DAILY 09/18/23 01/06/24 release gabapentin 300 mg capsule 300 mg PO BEDTIME 09/18/23 01/06/24 Previous Rx's Medication Instructions Recorded paroxetine HCl 20 mg tablet See Rx Instructions .Route 04/09/20 .COMPLEX #60 tabs levothyroxine 100 mcg tablet See Rx Instructions .Route 07/23/20 .COMPLEX #30 tabs hyoscyamine sulfate 0.125 mg tablet 0.125 mg PO BID-QID PRN dyspepsia 02/07/24 #30 tabs Allergies Allergy/AdvReac Type Severity Reaction Status Date / Time codeine [CODEINE] Allergy Severe ANAPHYLAXIS Verified 02/07/24 16:13 Penicillins [PENICILLINS] Allergy Severe ANAPHYLAXIS Verified 02/07/24 16:13 shellfish derived Allergy Severe CRAB, Verified 02/07/24 16:13 [SHELLFISH DERIVED] SWELLING AIRWAIR CLOSED latex [LATEX] Allergy Mild rash Verified 02/07/24 16:13 Patient History Medical History Greater trochanteric bursitis of right hip Encounter for smoking cessation counseling Somatic dysfunction of abdominal region Psoas muscle strain Greater trochanteric bursitis of right hip Dizziness Insomnia disorder, with non-sleep disorder mental comorbidity Fatigue Tobacco abuse disorder Chronic pain Lumbar spine pain Cervical spine disease Hypothyroidism Chronic back pain Depression Anxiety Surgical History Status post hysterectomy Social History marital status: household members: spouse Smoking Status: Current every day smoker alcohol intake: never substance use type: does not use Smoking Status: Current every day smoker alcohol intake frequency: 0-2 drinks per day Substance Use Type: does not use Exam Initial Vital Signs Initial Vital Signs: Vital Signs Pulse Rate 102 H 02/07/24 15:57 Pulse Oximetry 99 02/07/24 15:57 Const: Awake, alert, no acute distress, nontoxic appearing Cardiac: regular rate, regular rhythm RESP: unlabored, clear bilaterally, no wheezing GI: Soft, nondistended, generalized tenderness to deep palpation in bilateral lower quadrants, tenderness to palpation right upper quadrant MSK: Atraumatic, full range of motion, pulses equal Skin: Warm, Dry, intact, no rashes Neuro: AO x3, CN II-XII grossly intact, moves all extremities Course Orders Ordered: Discontinued Medications Sodium Chloride (Normal Saline 0.9%) 1,000 mls @ 1,000 mls/hr IV BOLUS ONE Stop: 02/07/24 16:57 Last Infusion: 02/07/24 17:17 Dose: Infused Documented By: Admin: 02/07/24 16:17 Dose: 1,000 mls/hr Documented By: AHMET Morphine Sulfate (Morphine 4 Mg/Ml Inj) 4 mg IV NOW ONE Stop: 02/07/24 15:59 Last Admin: 02/07/24 16:17 Dose: 4 mg Documented By: AHMET Ondansetron HCl (Ondansetron 4 Mg/2 Ml Inj) 4 mg IV NOW ONE Stop: 02/07/24 15:59 Last Admin: 02/07/24 16:17 Dose: 4 mg Documented By: AHMET Vital Signs Vital signs: Vital Signs - 8 hr 02/07/24 15:57 02/07/24 16:00 02/07/24 16:01 Temperature Pulse Rate 102 H 87 96 H Respiratory Rate Blood Pressure Pulse Oximetry 99 98 98 Oxygen Delivery Method 02/07/24 16:01 02/07/24 16:10 02/07/24 16:30 Temperature 97.9 F Pulse Rate 104 H Respiratory Rate 16 Blood Pressure 143/80 H 164/89 H 145/88 H Pulse Oximetry 98 Oxygen Delivery Method Room Air 02/07/24 16:30 02/07/24 16:58 02/07/24 16:58 Temperature Pulse Rate 94 H 89 Respiratory Rate Blood Pressure 154/84 H Pulse Oximetry 97 99 Oxygen Delivery Method 02/07/24 17:00 02/07/24 17:00 Temperature Pulse Rate 85 Respiratory Rate Blood Pressure 139/81 Pulse Oximetry 100 Oxygen Delivery Method MDM - Abdominal Pain Differential Diagnosis Differential diagnosis: Likely abdominal pain, acute appendicitis and calculus of kidney Lab Data 02/07/24 15:59 02/07/24 15:59 Labs: Lab Results 02/07/24 Range/Units 15:59 WBC 6.6 (4.5-11.0) X10^3/uL RBC 4.57 (4.0-5.2) X10^6/uL Hgb 14.3 (12.0-16.0) g/dL Hct 41.8 (36-46) % MCV 91.5 (80-100) fL MCH 31.4 (26-34) PG MCHC 34.3 (30-36) % RDW 14.2 (11.6-14.8) % Plt Count 248 (150-400) X10^3/uL Neut % (Auto) 56.5 (50-75) % Lymph % (Auto) 25.6 (25-40) % [place] % (Auto) 11.7 (3-14) % Eos % (Auto) 5.3 H (2-4) % Baso % (Auto) 0.9 (0-2) % Neut # (Auto) 3800 (2443-4282) /uL Lymph # (Auto) 1700 (5429-9190) /uL [place] # (Auto) 800 (0-900) /uL Eos # (Auto) 400 (0-450) /uL Baso # (Auto) 100 (0-100) /uL Sodium 136 L (137-145) mmol/L Potassium 4.1 (3.4-5.1) mmol/L Chloride 108 H (98-107) mmol/L Carbon Dioxide 25 (22-32) mmol/L BUN 17 (7-17) mg/dL Creatinine 0.84 (0.52-1.04) mg/dL Estimated GFR > 60 (>60) mL/min BUN/Creatinine Ratio 20.2 (6-22) Glucose 131 H (70-100) mg/dL Lactate 0.9 (0.7-2.1) mmol/L Calcium 9.2 (8.4-10.2) mg/dL Total Bilirubin 0.6 (0.2-1.3) mg/dL AST 26 (14-36) IU/L ALT 17 (<35) IU/L Alkaline Phosphatase 79 (38-126) U/L Total Protein 9.5 H (6.3-8.2) g/dL Albumin 4.2 (3.5-5.0) g/dL Globulin 5.3 H (1.7-4.1) g/dL Albumin/Globulin Ratio 0.8 L (1.0-2.8) Lipase 43 (23-300) U/L Imaging Data CT scan - abdomen/pelvis: Radiologist's Impression: PROCEDURE: CT ABDOMEN PELVIS W CON INDICATIONS: LOW ABD PAIN, HX COLITIS TECHNIQUE: After the administration of intravenous contrast, axial sections acquired from the lung bases to the pubic symphysis. Coronal and sagittal reformats were performed. For radiation dose reduction, the following was used: automated exposure control, adjustment of mA and/or kV according to patient size. COMPARISON: [facility], CT, CT ABDOMEN PELVIS W CON, 06/03/2022, 10:15. [facility], CT, CT ABDOMEN PELVIS W CON, 09/18/2023, 13:40. [facility], US, US ABDOMEN LIMITED, 02/07/2024, 16:16. [facility], CT, CT ABDOMEN PELVIS W CON, 11/18/2023, 21:23. FINDINGS: Image quality: Diagnostic. Lower Chest: No significant findings. ABDOMEN: Liver: No solid mass. Gallbladder: No radiopaque gallstones or wall thickening. Biliary ducts: No biliary dilation. Pancreas: No ductal dilation. Spleen: Size is within normal limits. Adrenal Glands: No adrenal nodules. Kidneys and Ureters: No hydronephrosis. No solid mass. No complex renal cystic lesion which requires follow up. Stomach and Bowel: Dilated loops of small bowel are seen, measuring up to 4.3 cm. Areas of small bowel wall thickening can be seen, particularly distally. Areas of abnormal colonic wall thickening can be seen, including involving the cecum and the proximal sigmoid colon. Moderate surrounding inflammatory change can be seen. Colonic diverticulosis is seen, without findings of active diverticulitis. Peritoneum: No peritoneal abscess is seen. There is a small amount of layering free fluid seen within the pelvis. No free air. Ventral Wall: No significant ventral hernia. Abdominal Nodes: No retroperitoneal or mesenteric adenopathy by size criteria. Vessels: Aorta and inferior vena cava are normal in size. Atherosclerotic calcification is noted. PELVIS: Pelvic Organs: Apparent prior supracervical hysterectomy. No adnexal masses are seen on either side. Bladder: No bladder wall thickening, accounting for underdistention. Pelvic Nodes: No enlarged lymph nodes. Miscellaneous: No inguinal hernias are seen. Bones: No aggressive osseous abnormality. Mild dextroconvex lumbar scoliotic curvature is seen. Age-appropriate bony degenerative changes are seen, particularly involving the lumbar spine. IMPRESSION: Areas of abnormal wall thickening can be seen involving the small bowel and the colon. Dilated loops of small bowel can be seen. Enterocolitis is suspected. Please correlate with potential infectious and inflammatory causes. There is mild amount of ascites seen. No free air or abscess can be seen. Additional findings: Prior supracervical hysterectomy Diverticulosis, without active diverticulitis Mild dextroconvex lumbar scoliotic curvature Lumbar degenerative change Dictated by: Sanjay Levine M.D. on 02/07/2024 at 16:07 Approved by: Sanjay Levine M.D. on 02/07/2024 at 16:10 [facility] Narrative Medical decision making narrative: Nontoxic patient presenting with abdominal pain consistent with previous episodes of colitis. Abdomen is soft but she was generally tender to palpation, especially in the right upper quadrant. Laboratory work and ultrasound imaging ordered. Laboratory work is reviewed, entirely unremarkable. No leukocytosis, normal electrolytes, no elevation in LFTs. Ultrasound of the abdomen shows no gallbladder pathology. With no explanation for patient's symptoms we will order CT of the abdomen and pelvis. CT of the abdomen and pelvis again shows small and large bowel inflammatory changes concerning for enterocolitis. Patient has had multiple episodes in her system of this finding and it was not appear that she has followed up with either a PCP or GI doctor. We will consult GI for further recommendations. At this time I am not overly inclined to give antibiotics with normal white blood cell count and no fever. Case discussed with Dr. Fernandez of Gastroenterology due to numerous ED visits with diagnosis of enterocolitis. Recommends against starting antibiotics in setting of no fever and normal white blood cell count. She took down her information and her clinic we will call the patient tomorrow to schedule a follow up appointment and to establish care. Discharge Plan Departure Patient Disposition: Home Clinical Impression: Enterocolitis, Abdominal pain Instructions: DI for Abdominal Pain-Adult Activity Restrictions/Additional Instructions: Your laboratory work today is normal. Your CT today showed thickening of your small bowel and colon concerning for something called enterocolitis. I discussed your case with Dr. Fernandez, who is Gastroenterology at [facility]. She recommends against starting antibiotics since you have normal and no fever here. The concern is that you may have inflammatory bowel disease and that you potentially need endoscopy and colonoscopy to figure out what keeps causing your recurrent colitis. Her clinic we will reach out to you tomorrow to establish care for a follow up appointment. Take the prescribed medication for abdominal spasms as well as Tylenol and ibuprofen at home for symptoms. Prescriptions: New hyoscyamine sulfate 0.125 mg tablet 0.125 mg PO BID-QID PRN (Reason: dyspepsia) Qty: 30 0RF No Action paroxetine HCl 20 mg tablet See Rx Instructions .ROUTE .COMPLEX Qty: 60 0RF Dose Instruction: Take two tablets by mouth daily. Rx Instructions: Take two tablets by mouth daily. levothyroxine 100 mcg tablet See Rx Instructions .ROUTE .COMPLEX Qty: 30 5RF Dose Instruction: TAKE ONE TABLET BY MOUTH EVERY MORNING Rx Instructions: TAKE ONE TABLET BY MOUTH EVERY MORNING gabapentin 300 mg capsule 300 mg PO BEDTIME duloxetine 60 mg Capsule,Delayed Release(Dr/Ec) 60 mg PO DAILY Referrals: Christel Elizalde MD [Primary Care Provider] - Stand Alone Forms: Patient Portal/API
[2024-02-07 16:07] LABS: Add Manual Diff / Slide Review NO; Basophils Absolute Auto 100 /uL (0-100); Basophils Percent Auto 0.9 % (0-2); Eosinophils Absolute Auto 400 /uL (0-450); Eosinophils Percent Auto 5.3 % (2-4); Hematocrit 41.8 % (36-46); Hemoglobin 14.3 g/dL (12.0-16.0); Lymphocytes Absolute Auto 1700 /uL (1100-4500); Lymphocytes Percent Auto 25.6 % (25-40); Mean Corpuscular HGB Conc 34.3 % (30-36); Mean Corpuscular Hemoglobin 31.4 PG (26-34); Mean Corpuscular Volume 91.5 fL (80-100); Monocytes Absolute Auto 800 /uL (0-900); Monocytes Percent Auto 11.7 % (3-14); Neutrophils Absolute Auto 3800 /uL (1500-7000); Neutrophils Percent Auto 56.5 % (50-75); Platelet Count 248 X10^3/uL (150-400); Red Blood Cell Count 4.57 X10^6/uL (4.0-5.2); Red Cell Distribution Width 14.2 % (11.6-14.8); White Blood Cell Count 6.6 X10^3/uL (4.5-11.0)
[2024-02-07] MEDS: ONDANSETRON 4 MG/2 ML INJ IV (16:17)
[2024-02-07] MEDS: MORPHINE 4 MG/ML INJ IV (16:17)
[2024-02-07] MEDS: SODIUM CHLORIDE 0.9% 1,000 ML 1000 ML IV (16:17)
[2024-02-07 16:23] LABS: Lactate (Lactic Acid) 0.9 mmol/L (0.7-2.1)
[2024-02-07 16:24] LABS: Alanine Aminotransferase 17 IU/L (<35); Albumin 4.2 g/dL (3.5-5.0); Albumin Globulin Ratio 0.8 (1.0-2.8); Alkaline Phosphatase 79 U/L (38-126); Aspartate Aminotransferase 26 IU/L (14-36); BUN Creatinine Ratio 20.2 (6-22); Bilirubin Total 0.6 mg/dL (0.2-1.3); Blood Urea Nitrogen 17 mg/dL (7-17); Calcium 9.2 mg/dL (8.4-10.2); Carbon Dioxide 25 mmol/L (22-32); Chloride 108 mmol/L (98-107); Estimated Glomerular Filt Rate > 60 mL/min (>60); Globulin 5.3 g/dL (1.7-4.1); Glucose 131 mg/dL (70-100); HEMOLYSIS < 15 (0-50); Lipase 43 U/L (23-300); Potassium 4.1 mmol/L (3.4-5.1); Sodium 136 mmol/L (137-145); Total Protein 9.5 g/dL (6.3-8.2)
--- NOTE | 2024-02-07 16:43 | DI.CT.S_ITS ---
PROCEDURE: CT ABDOMEN PELVIS W CON INDICATIONS: LOW ABD PAIN, HX COLITIS TECHNIQUE: After the administration of intravenous contrast, axial sections acquired from the lung bases to the pubic symphysis. Coronal and sagittal reformats were performed. For radiation dose reduction, the following was used: automated exposure control, adjustment of mA and/or kV according to patient size. COMPARISON: [facility], CT, CT ABDOMEN PELVIS W CON, 06/03/2022, 10:15. [facility], CT, CT ABDOMEN PELVIS W CON, 09/18/2023, 13:40. [facility], US, US ABDOMEN LIMITED, 02/07/2024, 16:16. [facility], CT, CT ABDOMEN PELVIS W CON, 11/18/2023, 21:23. FINDINGS: Image quality: Diagnostic. Lower Chest: No significant findings. ABDOMEN: Liver: No solid mass. Gallbladder: No radiopaque gallstones or wall thickening. Biliary ducts: No biliary dilation. Pancreas: No ductal dilation. Spleen: Size is within normal limits. Adrenal Glands: No adrenal nodules. Kidneys and Ureters: No hydronephrosis. No solid mass. No complex renal cystic lesion which requires follow up. Stomach and Bowel: Dilated loops of small bowel are seen, measuring up to 4.3 cm. Areas of small bowel wall thickening can be seen, particularly distally. Areas of abnormal colonic wall thickening can be seen, including involving the cecum and the proximal sigmoid colon. Moderate surrounding inflammatory change can be seen. Colonic diverticulosis is seen, without findings of active diverticulitis. Peritoneum: No peritoneal abscess is seen. There is a small amount of layering free fluid seen within the pelvis. No free air. Ventral Wall: No significant ventral hernia. Abdominal Nodes: No retroperitoneal or mesenteric adenopathy by size criteria. Vessels: Aorta and inferior vena cava are normal in size. Atherosclerotic calcification is noted. PELVIS: Pelvic Organs: Apparent prior supracervical hysterectomy. No adnexal masses are seen on either side. Bladder: No bladder wall thickening, accounting for underdistention. Pelvic Nodes: No enlarged lymph nodes. Miscellaneous: No inguinal hernias are seen. Bones: No aggressive osseous abnormality. Mild dextroconvex lumbar scoliotic curvature is seen. Age-appropriate bony degenerative changes are seen, particularly involving the lumbar spine. IMPRESSION: Areas of abnormal wall thickening can be seen involving the small bowel and the colon. Dilated loops of small bowel can be seen. Enterocolitis is suspected. Please correlate with potential infectious and inflammatory causes. There is mild amount of ascites seen. No free air or abscess can be seen. Additional findings: Prior supracervical hysterectomy Diverticulosis, without active diverticulitis Mild dextroconvex lumbar scoliotic curvature Lumbar degenerative change Dictated by: Sanjay Levine M.D. on 02/07/2024 at 16:07 Approved by: Sanjay Levine M.D. on 02/07/2024 at 16:10
== END 2024-02-07 18:14 | disposition home or self-care (01) ==
PROVIDERS: Emergency Provider Emergency Medicine; PCP Internal Medicine Geriatric Medicine
DX: K52.9 Noninfective gastroenteritis and colitis, unspecified (principal); R10.9 Unspecified abdominal pain
CPT/HCPCS: 36415; 74177; 76705; 80053; 83605; 83690; 85025; 96361; 96374; 96375; 99284; J2270; J2405; Q9967

== ENCOUNTER 2024-02-18 10:45 | Emergency (ER) | payer OTHER, MEDICAID, SELFPAY ==
[2023-09-18 16:00] VITALS: BMI 24.5
[2024-02-18 10:52] VITALS: BP 132/87; PULSE 93; RESP 16; TEMP 36.6; O2SAT 99; BMI 24.6
[2024-02-18 11:24] VITALS: BP 139/81; PULSE 82; O2SAT 99
[2024-02-18 11:28] LABS: Add Manual Diff / Slide Review NO; Basophils Absolute Auto 0 /uL (0-100); Basophils Percent Auto 0.7 % (0-2); Eosinophils Absolute Auto 200 /uL (0-450); Eosinophils Percent Auto 3.9 % (2-4); Hematocrit 39.2 % (36-46); Hemoglobin 13.3 g/dL (12.0-16.0); Lymphocytes Absolute Auto 1200 /uL (1100-4500); Lymphocytes Percent Auto 22.6 % (25-40); Mean Corpuscular Hemoglobin 31.1 PG (26-34); Mean Corpuscular Volume 91.7 fL (80-100); Monocytes Absolute Auto 600 /uL (0-900); Monocytes Percent Auto 11.4 % (3-14); Neutrophils Absolute Auto 3200 /uL (1500-7000); Neutrophils Percent Auto 61.4 % (50-75); Platelet Count 257 X10^3/uL (150-400); Red Blood Cell Count 4.28 X10^6/uL (4.0-5.2); Red Cell Distribution Width 14.2 % (11.6-14.8); White Blood Cell Count 5.2 X10^3/uL (4.5-11.0)
[2024-02-18 11:30] VITALS: BP 128/81; PULSE 86; O2SAT 100
--- NOTE | 2024-02-18 11:35 | ED_ITS ---
HPI - General Adult General Chief complaint: Abdominal Pain Stated complaint: abd, vomiting/diarrhea t-7 Time Seen by Provider: 02/18/24 11:19 Source: patient Mode of arrival: Ambulatory History of Present Illness HPI narrative: Patient is a 53-year-old female. Has been seen in the emergency department multiple times for abdominal pain vomiting and diarrhea. States has been going on for several weeks. Has had multiple CT scans and ultrasound. Has been diagnosed with colitis/enteritis. Has seen Gastroenterology. Is on medications. Can not get into have a colonoscopy for the next several weeks. She was here for continued symptoms. Related Data Home Medications Medication Instructions Recorded Confirmed duloxetine 60 mg capsule,delayed 60 mg PO DAILY 09/18/23 01/06/24 release gabapentin 300 mg capsule 300 mg PO BEDTIME 09/18/23 01/06/24 Previous Rx's Medication Instructions Recorded paroxetine HCl 20 mg tablet See Rx Instructions .Route 04/09/20 .COMPLEX #60 tabs levothyroxine 100 mcg tablet See Rx Instructions .Route 07/23/20 .COMPLEX #30 tabs hyoscyamine sulfate 0.125 mg tablet 0.125 mg PO BID-QID PRN dyspepsia 02/07/24 #30 tabs ciprofloxacin HCl 500 mg tablet 500 mg PO BID 3 days #6 tabs 02/18/24 (Cipro) Allergies Allergy/AdvReac Type Severity Reaction Status Date / Time codeine [CODEINE] Allergy Severe ANAPHYLAXIS Verified 02/18/24 10:59 Penicillins [PENICILLINS] Allergy Severe ANAPHYLAXIS Verified 02/18/24 10:59 shellfish derived Allergy Severe CRAB, Verified 02/18/24 10:59 [SHELLFISH DERIVED] SWELLING AIRWAIR CLOSED latex [LATEX] Allergy Mild rash Verified 02/18/24 10:59 Review of Systems Review of Systems ROS Unobtainable: All systems reviewed & are unremarkable except as noted in HPI and below Patient History Medical History Greater trochanteric bursitis of right hip Encounter for smoking cessation counseling Somatic dysfunction of abdominal region Psoas muscle strain Greater trochanteric bursitis of right hip Dizziness Insomnia disorder, with non-sleep disorder mental comorbidity Fatigue Tobacco abuse disorder Chronic pain Lumbar spine pain Cervical spine disease Hypothyroidism Chronic back pain Depression Anxiety Surgical History Status post hysterectomy Social History marital status: household members: spouse Smoking Status: Current every day smoker alcohol intake: never substance use type: does not use Smoking Status: Current every day smoker alcohol intake frequency: 0-2 drinks per day Substance Use Type: does not use Exam Initial Vital Signs Initial Vital Signs: Vital Signs Temperature 97.8 F 02/18/24 10:52 Pulse Rate 93 H 02/18/24 10:52 Respiratory Rate 16 02/18/24 10:52 Blood Pressure 132/87 02/18/24 10:52 Pulse Oximetry 99 02/18/24 10:52 Oxygen Delivery Method Room Air 02/18/24 10:52 Const General: cooperative, comfortable and No ill appearing HENMT Head: normal to inspection and normocephalic Resp Effort & Inspection: normal respiratory effort Auscultation: clear to auscultation bilaterally Cardio Rate: regular rate GI Inspection: normal to inspection and non-distended Palpation: soft, No firm, No guarding and tender Neuro General: patient awake Course Orders Ordered: ED Orders 02/18/24 11:07 EKG-12 Lead Stat 02/18/24 11:20 Complete Blood Count AUTO DIFF Stat Comprehensive Metabolic Panel Stat Lipase Stat Ondansetron HCl (Ondansetron 4 Mg/2 Ml Inj) 4 mg IV NOW PRN PRN Reason: Nausea And Vomiting Ondansetron HCl (Ondansetron 4 Mg Odt) 4 mg PO NOW PRN PRN Reason: Nausea And Vomiting Vital Signs Vital signs: Vital Signs - 8 hr 02/18/24 10:52 02/18/24 11:24 02/18/24 11:24 Temperature 97.8 F Pulse Rate 93 H 82 Respiratory Rate 16 Blood Pressure 132/87 139/81 Pulse Oximetry 99 99 Oxygen Delivery Method Room Air 02/18/24 11:30 02/18/24 11:30 02/18/24 12:00 Temperature Pulse Rate 86 Respiratory Rate Blood Pressure 128/81 130/81 Pulse Oximetry 100 Oxygen Delivery Method 02/18/24 12:00 Temperature Pulse Rate 85 Respiratory Rate Blood Pressure Pulse Oximetry 99 Oxygen Delivery Method Medical Decision Making Medical Records Medical records reviewed: Yes I reviewed the patient's medical records. Lab Data Lab results reviewed: Yes I reviewed the patient's lab results. 02/18/24 11:20 02/18/24 11:20 Labs: Lab Results 02/18/24 Range/Units 11:20 WBC 5.2 (4.5-11.0) X10^3/uL RBC 4.28 (4.0-5.2) X10^6/uL Hgb 13.3 (12.0-16.0) g/dL Hct 39.2 (36-46) % MCV 91.7 (80-100) fL MCH 31.1 (26-34) PG MCHC 34.0 (30-36) % RDW 14.2 (11.6-14.8) % Plt Count 257 (150-400) X10^3/uL Neut % (Auto) 61.4 (50-75) % Lymph % (Auto) 22.6 L (25-40) % [place] % (Auto) 11.4 (3-14) % Eos % (Auto) 3.9 (2-4) % Baso % (Auto) 0.7 (0-2) % Neut # (Auto) 3200 (4480-7361) /uL Lymph # (Auto) 1200 (1344-7720) /uL [place] # (Auto) 600 (0-900) /uL Eos # (Auto) 200 (0-450) /uL Baso # (Auto) 0 (0-100) /uL Sodium 133 L (137-145) mmol/L Potassium 4.3 (3.4-5.1) mmol/L Chloride 105 (98-107) mmol/L Carbon Dioxide 21 L (22-32) mmol/L BUN 16 (7-17) mg/dL Creatinine 0.87 (0.52-1.04) mg/dL Estimated GFR > 60 (>60) mL/min BUN/Creatinine Ratio 18.4 (6-22) Glucose 103 H (70-100) mg/dL Calcium 9.0 (8.4-10.2) mg/dL Total Bilirubin 0.6 (0.2-1.3) mg/dL AST 36 (14-36) IU/L ALT 19 (<35) IU/L Alkaline Phosphatase 95 (38-126) U/L Total Protein 10.0 H (6.3-8.2) g/dL Albumin 4.5 (3.5-5.0) g/dL Globulin 5.5 H (1.7-4.1) g/dL Albumin/Globulin Ratio 0.8 L (1.0-2.8) Lipase 42 (23-300) U/L MDM Narrative Medical decision making narrative: Patient has a benign abdomen. Labs are unremarkable. Has had multiple CT scans and ultrasounds for her presenting symptoms today. I do feel that we can hold on further workup for this. States she has never been treated with antibiotics for her symptoms. Will try a course of antibiotics. We discussed Imodium. Discussed return precautions. She expressed understanding and agreement. Discharge Plan Departure Patient Disposition: Home Clinical Impression: Diarrhea, Abdominal pain Instructions: Diarrhea, DI for Abdominal Pain-Adult Activity Restrictions/Additional Instructions: I do recommend that you take all of your medications as directed. Keep all of your scheduled medical appointments. You can contact the General surgery Department of the number provided below to see if they can get you in to have the colonoscopy. Return to the emergency department for new symptoms. Prescriptions: New ciprofloxacin HCl [Cipro] 500 mg tablet 500 mg PO BID 3 Days Qty: 6 0RF No Action paroxetine HCl 20 mg tablet See Rx Instructions .ROUTE .COMPLEX Qty: 60 0RF Dose Instruction: Take two tablets by mouth daily. Rx Instructions: Take two tablets by mouth daily. levothyroxine 100 mcg tablet See Rx Instructions .ROUTE .COMPLEX Qty: 30 5RF Dose Instruction: TAKE ONE TABLET BY MOUTH EVERY MORNING Rx Instructions: TAKE ONE TABLET BY MOUTH EVERY MORNING gabapentin 300 mg capsule 300 mg PO BEDTIME duloxetine 60 mg Capsule,Delayed Release(Dr/Ec) 60 mg PO DAILY hyoscyamine sulfate 0.125 mg tablet 0.125 mg PO BID-QID PRN (Reason: dyspepsia) Qty: 30 0RF Referrals: Burt James MD [Physician] - Christel Elizalde MD [Primary Care Provider] - Stand Alone Forms: Patient Portal/API
[2024-02-18 11:43] LABS: Alanine Aminotransferase 19 IU/L (<35); Albumin 4.5 g/dL (3.5-5.0); Albumin Globulin Ratio 0.8 (1.0-2.8); Alkaline Phosphatase 95 U/L (38-126); Aspartate Aminotransferase 36 IU/L (14-36); BUN Creatinine Ratio 18.4 (6-22); Bilirubin Total 0.6 mg/dL (0.2-1.3); Blood Urea Nitrogen 16 mg/dL (7-17); Carbon Dioxide 21 mmol/L (22-32); Chloride 105 mmol/L (98-107); Estimated Glomerular Filt Rate > 60 mL/min (>60); Globulin 5.5 g/dL (1.7-4.1); Glucose 103 mg/dL (70-100); HEMOLYSIS 23 (0-50); Lipase 42 U/L (23-300); Potassium 4.3 mmol/L (3.4-5.1); Sodium 133 mmol/L (137-145)
[2024-02-18 12:00] VITALS: BP 130/81; PULSE 85; O2SAT 99
[2024-02-18 12:30] VITALS: BP 121/84; PULSE 88; O2SAT 99
== END 2024-02-18 12:51 | disposition home or self-care (01) ==
PROVIDERS: Emergency Provider Emergency Medicine; PCP Internal Medicine Geriatric Medicine
DX: R19.7 Diarrhea, unspecified (principal); R10.9 Unspecified abdominal pain
CPT/HCPCS: 36415; 80053; 83690; 85025; 99283

== ENCOUNTER 2024-03-22 18:45 | Emergency (ER) | payer OTHER, MEDICAID, SELFPAY ==
[2023-09-18 16:00] VITALS: BMI 24.5
[2024-03-22] VITALS (7 sets, daily range): BP systolic 110–134; BP diastolic 67–81; PULSE 75–84; RESP 16; TEMP 36.8; O2SAT 97–99; BMI 22.6
[2024-03-22 19:18] LABS: Add Manual Diff / Slide Review NO; Basophils Absolute Auto 100 /uL (0-100); Basophils Percent Auto 2.3 % (0-2); Eosinophils Absolute Auto 200 /uL (0-450); Eosinophils Percent Auto 4.1 % (2-4); Hematocrit 38.3 % (36-46); Hemoglobin 12.9 g/dL (12.0-16.0); INR 1.2 (0.9-1.3); Lymphocytes Absolute Auto 1200 /uL (1100-4500); Lymphocytes Percent Auto 33.2 % (25-40); Mean Corpuscular HGB Conc 33.6 % (30-36); Mean Corpuscular Hemoglobin 30.8 PG (26-34); Mean Corpuscular Volume 91.5 fL (80-100); Monocytes Absolute Auto 500 /uL (0-900); Neutrophils Absolute Auto 1800 /uL (1500-7000); Neutrophils Percent Auto 47.4 % (50-75); Platelet Count 219 X10^3/uL (150-400); Prothrombin Time 13.5 SECONDS (9.4-12.5); Red Blood Cell Count 4.19 X10^6/uL (4.0-5.2); Red Cell Distribution Width 13.6 % (11.6-14.8); White Blood Cell Count 3.7 X10^3/uL (4.5-11.0)
[2024-03-22 19:21] LABS: PTT Partial Thromboplastin Tim 36 SECONDS (25.1-36.5)
[2024-03-22 19:26] LABS: Alanine Aminotransferase 26 IU/L (<35); Albumin 4.1 g/dL (3.5-5.0); Alkaline Phosphatase 75 U/L (38-126); Aspartate Aminotransferase 35 IU/L (14-36); BUN Creatinine Ratio 10.6 (6-22); Bilirubin Total 0.4 mg/dL (0.2-1.3); Blood Urea Nitrogen 9 mg/dL (7-17); Calcium 8.7 mg/dL (8.4-10.2); Carbon Dioxide 23 mmol/L (22-32); Chloride 107 mmol/L (98-107); Estimated Glomerular Filt Rate > 60 mL/min (>60); Globulin 4.1 g/dL (1.7-4.1); Glucose 114 mg/dL (70-100); HEMOLYSIS 25 (0-50); Potassium 4.1 mmol/L (3.4-5.1); Sodium 138 mmol/L (137-145); Total Protein 8.2 g/dL (6.3-8.2)
--- NOTE | 2024-03-22 21:59 | PC.NURSE ---
blood clots passed today, no stool
[2024-03-22 22:32] LABS: Ictotest Urine Negative (Negative)
--- NOTE | 2024-03-22 22:36 | ED.GIBLEED ---
HPI - GI Bleed General Chief complaint: GI Bleed Stated complaint: rectal bleeding Time Seen by Provider: 03/22/24 21:47 Source: patient Mode of arrival: Ambulatory History of Present Illness HPI Narrative: 53-year-old female presents for evaluation bright red blood in her stools with clots this morning. Patient has been seen multiple times in the emergency department for abdominal pain with diagnosis of nonspecific ?colitis?. I saw patient for this issue on 02/07/2024. She underwent CT and ultrasound imaging that showed same findings as previous. At that time I discussed case with Gastroenterology, who recommended no antibiotics due to no leukocytosis and no fever. Patient's information was taken down and reportedly she was going to have a call the next day for follow up appointment, however patient states that this never happened. She has an appointment with Dr. James of General surgery on 04/08 for endoscopy and colonoscopy. Patient also has abdominal pain and some bloating. Denies nausea, vomiting. Prior to blood in stools this morning patient had several weeks of diarrhea. Related Data Home Medications Medication Instructions Recorded Confirmed gabapentin 300 mg capsule 300 mg PO BEDTIME 09/18/23 03/04/24 Previous Rx's Medication Instructions Recorded paroxetine HCl 20 mg tablet See Rx Instructions .Route 04/09/20 .COMPLEX #60 tabs levothyroxine 100 mcg tablet See Rx Instructions .Route 07/23/20 .COMPLEX #30 tabs sodium,potassium,mag sulfates 17.5 See Rx Instructions PO .COMPLEX 03/09/24 gram-3.13 gram-1.6 gram oral soln #354 mL (Suprep Bowel Prep Kit) dicyclomine 20 mg tablet 20 mg PO TID #30 tabs 03/23/24 ondansetron 4 mg disintegrating 4 mg PO Q8H PRN nausea and 03/23/24 tablet vomiting #30 tabs Allergies Allergy/AdvReac Type Severity Reaction Status Date / Time codeine [CODEINE] Allergy Severe ANAPHYLAXIS Verified 03/04/24 09:43 Penicillins [PENICILLINS] Allergy Severe ANAPHYLAXIS Verified 03/04/24 09:43 shellfish derived Allergy Severe CRAB, Verified 03/04/24 09:43 [SHELLFISH DERIVED] SWELLING AIRWAIR CLOSED latex [LATEX] Allergy Mild rash Verified 03/04/24 09:43 Patient History Medical History Greater trochanteric bursitis of right hip Encounter for smoking cessation counseling Somatic dysfunction of abdominal region Psoas muscle strain Greater trochanteric bursitis of right hip Dizziness Insomnia disorder, with non-sleep disorder mental comorbidity Fatigue Tobacco abuse disorder Chronic pain Lumbar spine pain Cervical spine disease Hypothyroidism Chronic back pain Depression Anxiety Surgical History Status post hysterectomy Social History marital status: details: 's name....Bipin household members: spouse lives independently: Yes occupational status: unemployed Smoking Status: Current every day smoker alcohol intake: former substance use type: does not use Smoking Status: Current every day smoker tobacco type: cigarettes alcohol intake frequency: 0-2 drinks per day Substance Use Type: does not use Exam Initial Vital Signs Initial Vital Signs: Vital Signs Temperature 98.2 F 03/22/24 18:47 Pulse Rate 84 03/22/24 18:47 Respiratory Rate 16 03/22/24 18:47 Blood Pressure 130/75 03/22/24 18:47 Pulse Oximetry 99 03/22/24 18:47 Oxygen Delivery Method Room Air 03/22/24 18:47 Const: Awake, alert, no acute distress Cardiac: regular rate, regular rhythm RESP: unlabored, clear bilaterally, no wheezing GI: Soft, generalized tenderness to deep palpation without rebound or guarding Rectal: tone intact, no gross blood, no hemorrhoids Skin: Warm, Dry, intact, no rashes Neuro: AO x3, CN II-XII grossly intact, moves all extremities Course Orders Ordered: Discontinued Medications Al Hydrox/Mg Hydrox/Simethicone (Mag Hydrox/Alum/Simeth 30 Ml Udc) 30 ml PO NOW ONE Stop: 03/22/24 23:42 Last Admin: 03/22/24 23:50 Dose: 30 ml Documented By: GC Lidocaine HCl (Lidocaine Viscous 2% 15 Ml Solution) 15 ml PO NOW ONE Stop: 03/22/24 23:42 Last Admin: 03/22/24 23:49 Dose: 15 ml Documented By: GC Ondansetron HCl (Ondansetron 4 Mg/2 Ml Inj) 4 mg IV NOW PRN PRN Reason: Nausea And Vomiting Last Admin: 03/23/24 01:08 Dose: 4 mg Documented By: Ondansetron HCl (Ondansetron 4 Mg Odt) 4 mg SL NOW PRN PRN Reason: Nausea And Vomiting Pantoprazole Sodium (Pantoprazole 40 Mg Vial) 80 mg IV NOW ONE Stop: 03/22/24 19:08 Last Admin: 03/22/24 23:15 Dose: Not Given Documented By: RENETTA Vital Signs Vital signs: Vital Signs - 8 hr 03/22/24 23:00 03/22/24 23:00 03/22/24 23:30 Temperature Pulse Rate 78 79 Respiratory Rate Blood Pressure 113/70 Pulse Oximetry 97 97 Oxygen Delivery Method 03/22/24 23:30 03/23/24 00:00 03/23/24 00:30 Temperature Pulse Rate 79 75 Respiratory Rate 18 16 Blood Pressure 110/67 Pulse Oximetry 98 99 Oxygen Delivery Method 03/23/24 01:00 03/23/24 01:30 03/23/24 02:00 Temperature Pulse Rate 73 78 78 Respiratory Rate 19 20 16 Blood Pressure Pulse Oximetry 97 98 97 Oxygen Delivery Method 03/23/24 02:44 Temperature 97.5 F L Pulse Rate 85 Respiratory Rate 18 Blood Pressure 140/85 Pulse Oximetry 98 Oxygen Delivery Method Room Air MDM - GI Bleed Differential Diagnosis Differential diagnosis: Likely hemorrhoids, infectious diarrhea and gastritis Lab Data 03/22/24 19:00 03/22/24 19:00 Labs: Lab Results 03/22/24 03/22/24 Range/Units 19:00 21:34 WBC 3.7 L (4.5-11.0) X10^3/uL RBC 4.19 (4.0-5.2) X10^6/uL Hgb 12.9 (12.0-16.0) g/dL Hct 38.3 (36-46) % MCV 91.5 (80-100) fL MCH 30.8 (26-34) PG MCHC 33.6 (30-36) % RDW 13.6 (11.6-14.8) % Plt Count 219 (150-400) X10^3/uL Neut % (Auto) 47.4 L (50-75) % Lymph % (Auto) 33.2 (25-40) % [place] % (Auto) 13.0 (3-14) % Eos % (Auto) 4.1 H (2-4) % Baso % (Auto) 2.3 H (0-2) % Neut # (Auto) 1800 (3633-5938) /uL Lymph # (Auto) 1200 (5928-9602) /uL [facility] # (Auto) 500 (0-900) /uL Eos # (Auto) 200 (0-450) /uL Baso # (Auto) 100 (0-100) /uL PT 13.5 H (9.4-12.5) SECONDS INR 1.2 (0.9-1.3) APTT 36 (25.1-36.5) SECONDS Sodium 138 (137-145) mmol/L Potassium 4.1 (3.4-5.1) mmol/L Chloride 107 (98-107) mmol/L Carbon Dioxide 23 (22-32) mmol/L BUN 9 (7-17) mg/dL Creatinine 0.85 (0.52-1.04) mg/dL Estimated GFR > 60 (>60) mL/min BUN/Creatinine Ratio 10.6 (6-22) Glucose 114 H (70-100) mg/dL Calcium 8.7 (8.4-10.2) mg/dL Total Bilirubin 0.4 (0.2-1.3) mg/dL AST 35 (14-36) IU/L ALT 26 (<35) IU/L Alkaline Phosphatase 75 (38-126) U/L Total Protein 8.2 (6.3-8.2) g/dL Albumin 4.1 (3.5-5.0) g/dL Globulin 4.1 (1.7-4.1) g/dL Albumin/Globulin Ratio 1.0 (1.0-2.8) Ur Bilirubin Confirm Negative (Negative) Blood Type O Positive Antibody Screen Negative Urine Dip Bedside Urine Glucose Negative Bedside Urine Bilirubin + 1 Bedside Urine Ketone +/- 5 Urine Specific [place] 1.025 Bedside Urine Occult Blood - Negative Bedside Urine pH 6.0 Bedside Urine Protein - Negative Bedside Urine Urobilinogen - Negative Bedside Urine Nitrite - Negative Bedside Urine Leukocytes - Negative Esterase Imaging Data CT scan - abdomen/pelvis: Radiologist's Impression: PROCEDURE: CT ABDOMEN PELVIS W CON INDICATIONS: DILATED LOOPS OF BOWEL, SBO? TECHNIQUE: After the administration of intravenous contrast, axial sections acquired from the lung bases to the pubic symphysis. Coronal and sagittal reformats were performed. For radiation dose reduction, the following was used: automated exposure control, adjustment of mA and/or kV according to patient size. COMPARISON: [facility], CT, CT ABDOMEN PELVIS W CON, 02/07/2024, 16:52. [facility], CT, CT ABDOMEN PELVIS W CON, 11/18/2023, 21:23. FINDINGS: Image quality: Diagnostic. Lower Chest: No significant findings. ABDOMEN: Liver: No solid mass. Gallbladder: Gallbladder is contracted. No radiopaque gallstones or wall thickening. Biliary ducts: No biliary dilation. Pancreas: No ductal dilation. Spleen: Size is within normal limits. Adrenal Glands: No adrenal nodules. Kidneys and Ureters: No hydronephrosis. No solid mass. No complex renal cystic lesion which requires follow up. Stomach and Bowel: Diffusely dilated loops of small bowel again seen throughout the abdomen and pelvis to the level of the ileocecal valve. Oral contrast material is seen within the stomach extending into the duodenum and jejunum. Areas of bowel wall thickening are seen in the small bowel, most prominent at the ileocecal junction. Colon appears normal and contains a small volume of stool. Mild colonic diverticulosis. Peritoneum: No abnormal intraperitoneal fluid. No free air. Ventral Wall: No significant ventral hernia. Abdominal Nodes: No retroperitoneal or mesenteric adenopathy by size criteria. Vessels: Aorta and inferior vena cava are normal in size. PELVIS: Pelvic Organs: Status post hysterectomy. Bladder: No bladder wall thickening, accounting for underdistention. Pelvic Nodes: No enlarged lymph nodes. Miscellaneous: No inguinal hernias are seen. Bones: No aggressive osseous abnormality. Mild dextroconvex curvature of the spine and multilevel spondylosis. Sacroiliac joints are intact. IMPRESSION: Diffusely dilated small bowel loops to the level of the ileocecal junction. Areas bowel wall thickening in the small bowel, most notable at the terminal ileum, which overall appear decreased in extent when compared to the CT from 02/07/2024. Findings again could represent a nonspecific enteritis with partial bowel obstruction. Approved by: Davy Valencia M.D. on 03/23/2024 at 1:59 MDM Narrative Medical decision making narrative: Patient presenting for blood in bowel movements today. Abdomen soft, generally tender to palpation without rebound or guarding. Patient has had multiple CT scans in the past that have not overly changed management, we will order KUB and if no significant findings are found then we will not CT scan. Laboratory work ordered. Labs significant for WBC count 3.7, hemoglobin 12.9, platelets 219, sodium 138, potassium 4.1, creatinine 0.85, normal liver enzymes. Unfortunately KUB showed what appeared to be dilated loops of small bowel concerning for small bowel obstruction. Patient denies nausea or vomiting and did have a bowel movement within the last 24 hours, so this is surprising. CT with IV and oral contrast ordered for assessment. CT of the abdomen and pelvis did show small bowel loop dilation, some findings of inflammation, however decreased from previous CT scans. Possible partial small-bowel obstruction. Patient reassessed, sleeping in ED bed. She has had no vomiting since arrival to the emergency department. Discussed CT results with Dr. Sosa of on-call general surgery, who stated that with normal labs, benign abdominal exam, stool in colon, and no nausea or vomiting patient could be discharged home. Patient already has scheduled colonoscopy upcoming. Patient counsled on lab and imaging findings, recommended continued follow up with GI as scheduled. Discharge Plan Departure Patient Disposition: Home Clinical Impression: Abdominal pain, Enteritis Instructions: DI for Abdominal Pain-Adult Activity Restrictions/Additional Instructions: Your CT scan today shows you have dilated small bowel, uncertain significance at this time. There is some inflammation of your small bowel, however this usually does not need antibiotics and is actually improved from the last time you had a CT. I spoke with our on-call general surgeon, who does not recommend any additional treatment in the emergency department at this time. Keep your appointment as scheduled for your endoscopy and colonoscopy. For the blood in your stools your hemoglobin today is normal and I do not see any blood on your rectal exam. Continue to take all other medications as previously prescribed Prescriptions: New ondansetron 4 mg tablet,disintegrating 4 mg PO Q8H PRN (Reason: nausea and vomiting) Qty: 30 0RF dicyclomine 20 mg tablet 20 mg PO TID Qty: 30 0RF No Action paroxetine HCl 20 mg tablet See Rx Instructions .ROUTE .COMPLEX Qty: 60 0RF Dose Instruction: Take two tablets by mouth daily. Rx Instructions: Take two tablets by mouth daily. levothyroxine 100 mcg tablet See Rx Instructions .ROUTE .COMPLEX Qty: 30 5RF Dose Instruction: TAKE ONE TABLET BY MOUTH EVERY MORNING Rx Instructions: TAKE ONE TABLET BY MOUTH EVERY MORNING sodium,potassium,mag sulfates [Suprep Bowel Prep Kit] 17.5-3.13-1.6 gram recon soln See Rx Instructions PO .COMPLEX Qty: 354 0RF Rx Instructions: take as directed by Physician gabapentin 300 mg capsule 300 mg PO BEDTIME Referrals: Christel Elizalde MD [Primary Care Provider] - Stand Alone Forms: Patient Portal/API
--- NOTE | 2024-03-22 23:28 | DI.RAD.S_ITS ---
PROCEDURE: XR KUB INDICATIONS: abd pain, generalized TECHNIQUE: One view of the abdomen acquired. COMPARISON: [facility], CT, CT ABDOMEN PELVIS W CON, 02/07/2024, 16:52. FINDINGS: Surgical changes and devices: None. Bowel: Multiple dilated air-filled loops of small bowel in the central abdomen with differential air-fluid levels. Bowel measures up to 4.5 cm in diameter. Soft tissues: No suspicious abdominal calcifications. Visualized solid organ contours appear normal in size. Bones: No suspicious bony lesions. IMPRESSION: Dilated air-filled loops of small bowel throughout the central abdomen, suspicious for small bowel obstruction. Approved by: Davy Valencia M.D. on 03/23/2024 at 0:29
[2024-03-22] MEDS: LIDOCAINE VISCOUS 2% 15 ML SOLUTION PO (23:49)
[2024-03-22] MEDS: MAG HYDROX/ALUM/SIMETH 30 ML UDC PO (23:50)
[2024-03-23] VITALS: PULSE 79; RESP 18; O2SAT 98
[2024-03-23 00:30] VITALS: PULSE 75; RESP 16; O2SAT 99
--- NOTE | 2024-03-23 00:34 | DI.CT.S_ITS ---
PROCEDURE: CT ABDOMEN PELVIS W CON INDICATIONS: DILATED LOOPS OF BOWEL, SBO? TECHNIQUE: After the administration of intravenous contrast, axial sections acquired from the lung bases to the pubic symphysis. Coronal and sagittal reformats were performed. For radiation dose reduction, the following was used: automated exposure control, adjustment of mA and/or kV according to patient size. COMPARISON: [facility], CT, CT ABDOMEN PELVIS W CON, 02/07/2024, 16:52. [facility], CT, CT ABDOMEN PELVIS W CON, 11/18/2023, 21:23. FINDINGS: Image quality: Diagnostic. Lower Chest: No significant findings. ABDOMEN: Liver: No solid mass. Gallbladder: Gallbladder is contracted. No radiopaque gallstones or wall thickening. Biliary ducts: No biliary dilation. Pancreas: No ductal dilation. Spleen: Size is within normal limits. Adrenal Glands: No adrenal nodules. Kidneys and Ureters: No hydronephrosis. No solid mass. No complex renal cystic lesion which requires follow up. Stomach and Bowel: Diffusely dilated loops of small bowel again seen throughout the abdomen and pelvis to the level of the ileocecal valve. Oral contrast material is seen within the stomach extending into the duodenum and jejunum. Areas of bowel wall thickening are seen in the small bowel, most prominent at the ileocecal junction. Colon appears normal and contains a small volume of stool. Mild colonic diverticulosis. Peritoneum: No abnormal intraperitoneal fluid. No free air. Ventral Wall: No significant ventral hernia. Abdominal Nodes: No retroperitoneal or mesenteric adenopathy by size criteria. Vessels: Aorta and inferior vena cava are normal in size. PELVIS: Pelvic Organs: Status post hysterectomy. Bladder: No bladder wall thickening, accounting for underdistention. Pelvic Nodes: No enlarged lymph nodes. Miscellaneous: No inguinal hernias are seen. Bones: No aggressive osseous abnormality. Mild dextroconvex curvature of the spine and multilevel spondylosis. Sacroiliac joints are intact. IMPRESSION: Diffusely dilated small bowel loops to the level of the ileocecal junction. Areas bowel wall thickening in the small bowel, most notable at the terminal ileum, which overall appear decreased in extent when compared to the CT from 02/07/2024. Findings again could represent a nonspecific enteritis with partial bowel obstruction. Approved by: Davy Valencia M.D. on 03/23/2024 at 1:59
[2024-03-23 01:00] VITALS: PULSE 73; RESP 19; O2SAT 97
[2024-03-23] MEDS: ONDANSETRON 4 MG/2 ML INJ IV (01:08)
--- NOTE | 2024-03-23 01:10 | PC.NURSE ---
Pt reports feeling nauseated. Medicated with PRN Zofran for nausea.
[2024-03-23 01:30] VITALS: PULSE 78; RESP 20; O2SAT 98
[2024-03-23 02:00] VITALS: PULSE 78; RESP 16; O2SAT 97
[2024-03-23 02:44] VITALS: BP 140/85; PULSE 85; RESP 18; TEMP 36.4; O2SAT 98
== END 2024-03-23 02:45 | disposition home or self-care (01) ==
PROVIDERS: Emergency Provider Emergency Medicine; PCP Internal Medicine Geriatric Medicine
DX: K52.9 Noninfective gastroenteritis and colitis, unspecified (principal); R10.9 Unspecified abdominal pain
CPT/HCPCS: 36415; 74018; 74177; 80053; 81003; 85025; 85610; 85730; 86850; 86900; 86901; 96374; 99284; J2405; Q9967

== ENCOUNTER 2024-04-06 00:40 | Inpatient (IN) | payer OTHER, MEDICAID, SELFPAY ==
[2023-09-18 16:00] VITALS: BMI 24.5
[2024-04-06] VITALS (20 sets, daily range): BP systolic 126–152; BP diastolic 77–88; PULSE 77–98; RESP 15–25; TEMP 36.4–37; O2SAT 95–100; BMI 21.2
[2024-04-06 01:30] LABS: Add Manual Diff / Slide Review NO; Basophils Absolute Auto 100 /uL (0-100); Basophils Percent Auto 1.1 % (0-2); Eosinophils Absolute Auto 100 /uL (0-450); Eosinophils Percent Auto 2.5 % (2-4); Hematocrit 38.1 % (36-46); Hemoglobin 13.2 g/dL (12.0-16.0); Lymphocytes Absolute Auto 1400 /uL (1100-4500); Lymphocytes Percent Auto 27.7 % (25-40); Mean Corpuscular HGB Conc 34.6 % (30-36); Mean Corpuscular Hemoglobin 31.2 PG (26-34); Mean Corpuscular Volume 90.1 fL (80-100); Monocytes Absolute Auto 600 /uL (0-900); Monocytes Percent Auto 12.6 % (3-14); Neutrophils Absolute Auto 2900 /uL (1500-7000); Neutrophils Percent Auto 56.1 % (50-75); Platelet Count 231 X10^3/uL (150-400); Red Blood Cell Count 4.23 X10^6/uL (4.0-5.2); Red Cell Distribution Width 13.8 % (11.6-14.8); White Blood Cell Count 5.1 X10^3/uL (4.5-11.0)
[2024-04-06 01:56] LABS: Alanine Aminotransferase 22 IU/L (<35); Albumin 4.1 g/dL (3.5-5.0); Albumin Globulin Ratio 0.9 (1.0-2.8); Alkaline Phosphatase 89 U/L (38-126); Aspartate Aminotransferase 32 IU/L (14-36); BUN Creatinine Ratio 11.6 (6-22); Bilirubin Total 0.7 mg/dL (0.2-1.3); Blood Urea Nitrogen 8 mg/dL (7-17); Calcium 9.1 mg/dL (8.4-10.2); Carbon Dioxide 18 mmol/L (22-32); Chloride 109 mmol/L (98-107); Estimated Glomerular Filt Rate > 60 mL/min (>60); Globulin 4.7 g/dL (1.7-4.1); Glucose 92 mg/dL (70-100); HEMOLYSIS 21 (0-50); Potassium 3.7 mmol/L (3.4-5.1); Sodium 136 mmol/L (137-145); Total Protein 8.8 g/dL (6.3-8.2)
--- NOTE | 2024-04-06 02:48 | ED.ABDPAIN ---
HPI - Abdominal Pain General Chief Complaint: Abdominal Pain Stated Complaint: blockage in intestines Time Seen by Provider: 04/06/24 02:33 Source: patient Mode of arrival: Ambulatory Limitations: no limitations History of Present Illness HPI narrative: 53-year-old female with history of hypothyroidism, osteoarthritis presents with complaint of abdominal pain, nausea and vomiting and that started this evening. Patient has had diarrhea for several days. She feels somewhat bloated and distended. States she has had a bowel obstruction in the past. States symptoms seem very similar. States she on imaging where she had to drink contrast, states that she ultimately went home and did not require any surgery. She has had prior hysterectomy had an appendectomy in the past 6 months. Patient states no fevers. No chest pain or shortness of breath. Describes abdominal pain little bit more on the left feels very similar to prior episodes. Denies any back flank pain. Describes diarrhea without any bright red blood or melena. No dysuria urgency or frequency. Patient has reported allergies to codeine and penicillin. Denies any tobacco, alcohol or recreational drugs. Follow with primary care in [place]. Patient notes she was scheduled for an upper and lower endoscopy with Dr. James. Related Data Home Medications Medication Instructions Recorded Confirmed gabapentin 300 mg capsule 300 mg PO BEDTIME 09/18/23 03/04/24 Previous Rx's Medication Instructions Recorded paroxetine HCl 20 mg tablet See Rx Instructions .Route 04/09/20 .COMPLEX #60 tabs levothyroxine 100 mcg tablet See Rx Instructions .Route 07/23/20 .COMPLEX #30 tabs sodium,potassium,mag sulfates 17.5 See Rx Instructions PO .COMPLEX 03/09/24 gram-3.13 gram-1.6 gram oral soln #354 mL (Suprep Bowel Prep Kit) dicyclomine 20 mg tablet 20 mg PO TID #30 tabs 03/23/24 ondansetron 4 mg disintegrating 4 mg PO Q8H PRN nausea and 03/23/24 tablet vomiting #30 tabs Allergies Allergy/AdvReac Type Severity Reaction Status Date / Time codeine [CODEINE] Allergy Severe ANAPHYLAXIS Verified 03/04/24 09:43 Penicillins [PENICILLINS] Allergy Severe ANAPHYLAXIS Verified 03/04/24 09:43 shellfish derived Allergy Severe CRAB, Verified 03/04/24 09:43 [SHELLFISH DERIVED] SWELLING AIRWAIR CLOSED latex [LATEX] Allergy Mild rash Verified 03/04/24 09:43 Review of Systems Review of Systems ROS Unobtainable: All systems reviewed & are unremarkable except as noted in HPI and below Patient History Medical History Greater trochanteric bursitis of right hip Encounter for smoking cessation counseling Somatic dysfunction of abdominal region Psoas muscle strain Greater trochanteric bursitis of right hip Dizziness Insomnia disorder, with non-sleep disorder mental comorbidity Fatigue Tobacco abuse disorder Chronic pain Lumbar spine pain Cervical spine disease Hypothyroidism Chronic back pain Depression Anxiety Surgical History Status post hysterectomy Social History marital status: details: 's name....Bipin household members: spouse lives independently: Yes occupational status: unemployed Smoking Status: Current every day smoker alcohol intake: former substance use type: does not use Smoking Status: Current every day smoker tobacco type: cigarettes alcohol intake frequency: 0-2 drinks per day Substance Use Type: does not use Exam Narrative Exam Narrative: GENERAL: Alert and oriented x three, female in mild distress. HEENT: Head normocephalic, atraumatic, EOMI, pupils reactive, face symmetric, moist mucous membranes NECK: Supple, full range of motion CARDIOVASCULAR: Regular rate and rhythm without murmurs, rubs or gallops. RESPIRATORY: Breath sounds equal bilaterally, no wheezes rales or rhonchi. ABDOMEN: Soft, mild left-sided tenderness, patient is partially distended. normoactive bowel sounds all 4 quadrants. No guarding or rebound, rigidity, no mass : No CVA tenderness EXTREMITIES: Normal range of motion, no clubbing or edema. Neurovascularly intact NEUROLOGICAL: Cranial nerves II through XII grossly intact. Moving all extremities SKIN: Warm, dry, no petechiae, no rashes or lesions. Initial Vital Signs Initial Vital Signs: Vital Signs Pulse Rate 95 H 04/06/24 00:49 Respiratory Rate 24 04/06/24 00:49 Blood Pressure 126/82 04/06/24 00:49 Pulse Oximetry 100 04/06/24 00:49 Oxygen Delivery Method Room Air 04/06/24 00:49 Course Orders Ordered: ED Orders 04/06/24 01:00 Complete Blood Count AUTO DIFF Stat Comprehensive Metabolic Panel Stat Lipase Stat 04/06/24 02:51 CT abdomen pelvis w con Stat Sodium Chloride (Normal Saline 0.9%) 1,000 mls @ 150 mls/hr IV CONT [place] Acetaminophen (Ofirmev) 1,000 mg in 100 mls @ 400 mls/hr IV Q6H PRN PRN Reason: Fever/Mild Pain (1-3) Ondansetron HCl (Ondansetron 4 Mg/2 Ml Inj) 4 mg IV Q6HR PRN PRN Reason: Nausea And Vomiting Discontinued Medications Sodium Chloride (Normal Saline 0.9%) 1,000 mls @ 1,000 mls/hr IV BOLUS ONE Stop: 04/06/24 03:51 Last Admin: 04/06/24 03:30 Dose: 1,000 mls/hr Documented By: LISA Ondansetron HCl (Ondansetron 4 Mg/2 Ml Inj) 4 mg IV NOW PRN PRN Reason: Nausea And Vomiting Last Admin: 04/06/24 03:30 Dose: 4 mg Documented By: LISA Ondansetron HCl (Ondansetron 4 Mg Odt) 4 mg PO NOW PRN PRN Reason: Nausea And Vomiting Vital Signs Vital signs: Vital Signs - 8 hr 04/06/24 00:49 04/06/24 01:14 04/06/24 01:30 Pulse Rate 95 H 78 77 Respiratory Rate 24 Blood Pressure 126/82 Pulse Oximetry 100 96 98 Oxygen Delivery Method Room Air 04/06/24 02:00 04/06/24 02:30 04/06/24 03:00 Pulse Rate 81 82 84 Respiratory Rate Blood Pressure Pulse Oximetry 100 99 98 Oxygen Delivery Method 04/06/24 03:30 04/06/24 03:48 04/06/24 03:48 Pulse Rate 78 78 Respiratory Rate 17 Blood Pressure 151/84 H Pulse Oximetry 100 100 Oxygen Delivery Method 04/06/24 04:06 Pulse Rate 98 H Respiratory Rate 25 H Blood Pressure Pulse Oximetry 95 Oxygen Delivery Method MDM - Abdominal Pain Lab Data 04/06/24 01:00 04/06/24 01:00 Labs: Lab Results 04/06/24 Range/Units 01:00 WBC 5.1 (4.5-11.0) X10^3/uL RBC 4.23 (4.0-5.2) X10^6/uL Hgb 13.2 (12.0-16.0) g/dL Hct 38.1 (36-46) % MCV 90.1 (80-100) fL MCH 31.2 (26-34) PG MCHC 34.6 (30-36) % RDW 13.8 (11.6-14.8) % Plt Count 231 (150-400) X10^3/uL Neut % (Auto) 56.1 (50-75) % Lymph % (Auto) 27.7 (25-40) % [place] % (Auto) 12.6 (3-14) % Eos % (Auto) 2.5 (2-4) % Baso % (Auto) 1.1 (0-2) % Neut # (Auto) 2900 (8221-0797) /uL Lymph # (Auto) 1400 (8936-2009) /uL [place] # (Auto) 600 (0-900) /uL Eos # (Auto) 100 (0-450) /uL Baso # (Auto) 100 (0-100) /uL Sodium 136 L (137-145) mmol/L Potassium 3.7 (3.4-5.1) mmol/L Chloride 109 H (98-107) mmol/L Carbon Dioxide 18 L (22-32) mmol/L BUN 8 (7-17) mg/dL Creatinine 0.69 (0.52-1.04) mg/dL Estimated GFR > 60 (>60) mL/min BUN/Creatinine Ratio 11.6 (6-22) Glucose 92 (70-100) mg/dL Calcium 9.1 (8.4-10.2) mg/dL Total Bilirubin 0.7 (0.2-1.3) mg/dL AST 32 (14-36) IU/L ALT 22 (<35) IU/L Alkaline Phosphatase 89 (38-126) U/L Total Protein 8.8 H (6.3-8.2) g/dL Albumin 4.1 (3.5-5.0) g/dL Globulin 4.7 H (1.7-4.1) g/dL Albumin/Globulin Ratio 0.9 L (1.0-2.8) Lipase 48 (23-300) U/L Point of care testing: Urine Dip Bedside Urine Glucose Negative Bedside Urine Bilirubin - Negative Bedside Urine Ketone - Negative Urine Specific [place] 1.010 Bedside Urine Occult Blood - Negative Bedside Urine pH 5.5 Bedside Urine Protein - Negative Bedside Urine Urobilinogen - Negative Bedside Urine Nitrite - Negative Bedside Urine Leukocytes - Negative Esterase MDM Narrative Medical decision making narrative: 53-year-old female with concern for bowel obstruction, patient states she has had nausea and vomiting today, abdominal pain with some distention and states diarrhea for several days. Labs show white count of 5.1 hemoglobin of 13 platelets of 231. Sodium is 136 potassium 3.7 chloride 109 CO2 18 BUN 8 creatinine 0.69 glucose is 92, calcium 9.1 with bilirubin of 0.7 AST is 32 ALT is 22 with alk-phos 89 total protein and globulin are elevated. Lipase is 48. Point of care urine negative for acute change. CT abdomen pelvis with oral contrast shows distended small bowel with air-fluid levels might be related mechanical obstruction or enteritis ileus can not be excluded does have a transition point right posterior inferior pelvis where there is thickening less thickening of the wall of numerous distended small bowel loops. Faint haziness of fat route of small bowel mesentery nonspecific could be related to edema. No ascites, pneumoperitoneum or abscess. Discussed with patient, no active vomiting in the department she is scheduled for scope with Dr. James this ThursdayApril 08. Clinically patient seems consistent with a partial bowel obstruction she has had some vomiting. She has been having diarrheal stools she is distended although her abdominal exam she has not particularly tender. Spoke with Dr. Chapin on-call for General surgery plan for observation for partial bowel obstruction, continue with fluids antiemetics, NPO for bowel rest and will evaluate. Discharge Plan Departure Patient Disposition: Admitted as Observation Clinical Impression: Partial obstruction of small intestine Admit Date/Time: 04/06/24 05:17 Admit Provider: Aldair Schaeffer
[2024-04-06 02:50] LABS: Lipase 48 U/L (23-300)
--- NOTE | 2024-04-06 02:51 | DI.CT.S_ITS ---
PROCEDURE: CT ABDOMEN PELVIS W CON INDICATIONS: vomiting, diarrhea, concern for sbo TECHNIQUE: After the administration of intravenous contrast, axial sections acquired from the lung bases to the pubic symphysis. Coronal and sagittal reformats were performed. For radiation dose reduction, the following was used: automated exposure control, adjustment of mA and/or kV according to patient size. COMPARISON: [facility], CT, CT ABDOMEN PELVIS W CON, 03/23/2024, 1:49. FINDINGS: Image quality: Diagnostic. Lower Chest: No significant findings. ABDOMEN: Liver: No solid mass. Gallbladder: Severely contracted limiting evaluation. Biliary ducts: No biliary dilation. Pancreas: No ductal dilation. Spleen: Size is within normal limits. Adrenal Glands: No adrenal nodules. Kidneys and Ureters: No hydronephrosis. No solid mass. No complex renal cystic lesion which requires follow up. Stomach and Bowel: Significant distention of small bowel particularly, mid to distal. Apparent transition point within the right posterior inferior pelvis (2/71) with some associated wall thickening. Mild wall thickening is noted throughout multiple distended loops of small bowel. Peritoneum: Diffuse mesenteric edema. No abnormal intraperitoneal fluid. No free air. Ventral Wall: No significant ventral hernia. Abdominal Nodes: No retroperitoneal or mesenteric adenopathy by size criteria. Vessels: Aorta and inferior vena cava are normal in size. Mild atherosclerotic calcifications. PELVIS: Pelvic Organs: Unremarkable. Bladder: No bladder wall thickening, accounting for underdistention. Pelvic Nodes: No enlarged lymph nodes. Miscellaneous: No inguinal hernias are seen. Bones: No aggressive osseous abnormality. Multilevel degenerative changes of the spine. IMPRESSION: Distended small bowel with air-fluid levels may be related to mechanical obstruction. Likely transition point within the right posterior inferior pelvis. Other differential etiologies include enteritis and ileus. Recommend clinical correlation and follow-up imaging as clinically indicated. Findings are concordant with preliminary interpretation provided by [facility]. Dictated by: Terence Guzman M.D. on 04/06/2024 at 8:39 Approved by: Terence Guzman M.D. on 04/06/2024 at 8:44
[2024-04-06] MEDS: SODIUM CHLORIDE 0.9% 1,000 ML 1000 ML IV (03:30)
[2024-04-06] MEDS: ONDANSETRON 4 MG/2 ML INJ IV (03:30)
--- NOTE | 2024-04-06 04:37 | PC.NURSE ---
Phone call from [facility] taken for critical values. Reporting distended small bowel w air-fluid levles that may be relatred to Mechanical obstruction. Enteritis and Ileus not excluded. Recommending close [facility] follow up.
--- NOTE | 2024-04-06 05:55 | PC.NURSE ---
Report given to Marylou LORENZANA.
[2024-04-06] MEDS: SODIUM CHLORIDE 0.9% 1,000 ML 150 ML IV ×2 (05:56→12:18)
--- NOTE | 2024-04-06 09:40 | DI.RAD.S_ITS ---
PROCEDURE: XR GASTROGRAFIN CHALLENGE COMPARISON: [facility], CT, CT ABDOMEN PELVIS W CON, 04/06/2024, 4:01. INDICATIONS: sbo FINDINGS: Mild appearance of contrast appears to be within the left colon extending to the rectum. The remain markedly dilated loops of fluid-filled small bowel. IMPRESSION: Persistent appearance of prominent partial small bowel obstruction with contrast in the colon. Dictated by: Mariana Kim M.D. on 04/11/2024 at 13:26 Approved by: Mariana Kim M.D. on 04/11/2024 at 13:27
--- NOTE | 2024-04-06 09:44 | PM.CN ---
History of Present Illness Consult details Date Patient Seen: 04/06/24 Time Patient Seen: 20:34 Chief complaint: blockage in intestines Narrative: 53-year-old woman history of hysterectomy and appendectomy for acute non perforated appendicitis presents to the hospital with symptoms of a small-bowel obstruction. Note this is her 4th admission over the past 8 months for such issue. She reports abdominal pain distention with nausea. She is having some diarrhea. CT abdomen pelvis was performed which demonstrates a partial small bowel obstruction. Meds Home Medications and Allergies Home Medications Medication Instructions Recorded Confirmed Type gabapentin 300 mg capsule 300 mg PO BEDTIME 09/18/23 04/06/24 History duloxetine 60 mg capsule,delayed 60 mg PO DAILY 04/06/24 04/06/24 History release levothyroxine 88 mcg tablet 88 mcg PO DAILY 04/06/24 04/06/24 History Allergies Allergy/AdvReac Type Severity Reaction Status Date / Time codeine [CODEINE] Allergy Severe ANAPHYLAXIS Verified 03/04/24 09:43 Penicillins [PENICILLINS] Allergy Severe ANAPHYLAXIS Verified 03/04/24 09:43 shellfish derived Allergy Severe CRAB, Verified 03/04/24 09:43 [SHELLFISH DERIVED] SWELLING AIRWAIR CLOSED latex [LATEX] Allergy Mild rash Verified 03/04/24 09:43 Exam Vital Signs (past 8 hours): - 04/06/24 02:00 04/06/24 02:30 04/06/24 03:00 Temperature Pulse Rate 81 82 84 Respiratory Rate Blood Pressure Pulse Oximetry 100 99 98 Oxygen Delivery Method Oxygen Flow Rate 04/06/24 03:30 04/06/24 03:48 04/06/24 03:48 Temperature Pulse Rate 78 78 Respiratory Rate 17 Blood Pressure 151/84 H Pulse Oximetry 100 100 Oxygen Delivery Method Oxygen Flow Rate 04/06/24 04:06 04/06/24 04:30 04/06/24 05:00 Temperature Pulse Rate 98 H 90 80 Respiratory Rate 25 H 17 24 Blood Pressure Pulse Oximetry 95 97 98 Oxygen Delivery Method Oxygen Flow Rate 04/06/24 05:30 04/06/24 05:54 04/06/24 06:19 Temperature 98.6 F Pulse Rate 79 83 Respiratory Rate 15 18 Blood Pressure 149/77 H Pulse Oximetry 98 96 Oxygen Delivery Method Room Air Oxygen Flow Rate 0 04/06/24 08:00 Temperature 98.6 F Pulse Rate 86 Respiratory Rate 16 Blood Pressure 149/77 H Pulse Oximetry 96 Oxygen Delivery Method Oxygen Flow Rate Oxygen Delivery Method Room Air Oxygen Flow Rate 0 Narrative Exam Narrative: GENERAL: A well nourished, well developed adult woman, resting comfortably, in no acute distress. HEENT: Normocephalic, atraumatic. No scleral icterus CHEST: Rising symmetrically. No audible wheezes CARDIOVASCULAR: Warm and well perfused. Regular rate ABDOMEN: Moderate distention minimally tender EXTREMITIES: Normal tone and without edema. NEUROLOGIC: Moving all extremities spontaneously. No gross motor deficits. Objective Labs 04/06/24 01:00 04/06/24 01:00 Labs: Laboratory Results - last 24 hr 04/06/24 01:00 WBC 5.1 RBC 4.23 Hgb 13.2 Hct 38.1 MCV 90.1 MCH 31.2 MCHC 34.6 RDW 13.8 Plt Count 231 Neut % (Auto) 56.1 Lymph % (Auto) 27.7 [place] % (Auto) 12.6 Eos % (Auto) 2.5 Baso % (Auto) 1.1 Neut # (Auto) 2900 Lymph # (Auto) 1400 [place] # (Auto) 600 Eos # (Auto) 100 Baso # (Auto) 100 Sodium 136 L Potassium 3.7 Chloride 109 H Carbon Dioxide 18 L BUN 8 Creatinine 0.69 Estimated GFR > 60 BUN/Creatinine Ratio 11.6 Glucose 92 Calcium 9.1 Total Bilirubin 0.7 AST 32 ALT 22 Alkaline Phosphatase 89 Total Protein 8.8 H Albumin 4.1 Globulin 4.7 H Albumin/Globulin Ratio 0.9 L Lipase 48 PFSH Medical History Greater trochanteric bursitis of right hip Encounter for smoking cessation counseling Somatic dysfunction of abdominal region Psoas muscle strain Greater trochanteric bursitis of right hip Dizziness Insomnia disorder, with non-sleep disorder mental comorbidity Fatigue Tobacco abuse disorder Chronic pain Lumbar spine pain Cervical spine disease Hypothyroidism Chronic back pain Depression Anxiety Surgical History Status post hysterectomy Social History marital status: details: 's name....Bipin household members: spouse lives independently: Yes occupational status: unemployed Tobacco & Substance Use Smoking Status: Current every day smoker alcohol intake: former substance use type: does not use Assessment & Plan Assessment & Plan narrative: 53-year-old woman history of prior abdominal surgeries with a partial small bowel obstruction. Performing Gastrografin study presently. She feels significantly improved from earlier today she is having some loose stool no emesis. We will trial clear liquid diet at this time and follow up on the Gastrografin study. This is her 4th admission for a partial small bowel obstruction over the past 8 months since an appendectomy and if she fails to entirely resolve I discussed with her the possibility of a diagnostic laparoscopy. Time-Based Coding :: [TOTAL MINUTES] spent with patient and on the chart (including review of chart, obtaining history, exam, reviewing outside data, placing orders, documenting exam and treatment plan, and counseling patient) on [DATE].
--- NOTE | 2024-04-06 12:54 | DIET.CONS ---
Dietary Consultation Note Admission Date: 04/06/2024 05:17 Assessment: 53 y F admitted for observations for partial bowel obstruction. Nutrition screened for low MNA. Met with pt at bedside. Reports only tolerating a bland diet w/ reduced po intakes since January due to abdominal pain and and diarrhea. Has noted weight loss of around 25 lb. Diet recall: B-pb toast L-ramen noodles D-/2 c mashed potatoes Nutrition focused physical exam performed: -Mild loss temporalis, mild loss deltoid, trapezius, pectoralis Assessed: temples, clavicle region, interosseous, orbital, triceps Ht: 160.02 cm Wt: 54.431 kg BMI: 21.2 UBW: 66.224 kg on 02/07/24 (-18% weight loss within 3 months, severe), 61.235 kg on 03/04/24 (-11% weight loss in 1 month, severe) Last BM: 04/06/24 (04/06/24 11:07) MNA: 7 Lamonte Score: 22 Diet: 04/06/24 09:48 NPO Diet Diet Modifications: NPO Type: Strict Labs: RBC 4.23 X10^6/uL (4.0-5.2) 04/06/24 01:00 Hgb 13.2 g/dL (12.0-16.0) 04/06/24 01:00 Hct 38.1 % (36-46) 04/06/24 01:00 Creatinine 0.69 mg/dL (0.52-1.04) 04/06/24 01:00 Nutrition Diagnosis: Severe acute Protein Calorie Malnutrition r/t reduced energy-protein intake in setting of abdominal pain and diarrhea as evidenced by 18% weight loss within 2 months (severe), <75% of estimated energy requirements for 2 months per diet recall, and mild muscle wasting (temples, deltoid, trapezius, pectoralis) Interventions: 1. Monitor for diet advancement, include protein supplementation w/ meals when advanced EER: [id number] kcals (25-30 kcals/kg per BMI) 80-85 g protein (1.5 g/kg per PCM Monitoring/Evaluations: diet advancement, plan of care Electronically Signed by: Rosanna Horne 04/06/24 12:54 Clinical Dietitian [address] [address]
--- NOTE | 2024-04-06 16:27 | P.HP_ITS ---
History of Present Illness History of Present Illness Date Patient Seen: 04/06/24 Time Patient Seen: 11:00 Chief complaint: blockage in intestines Narrative: 53-year-old female with history of hypothyroidism, osteoarthritis who presented with abdominal distension, nausea, vomiting and abdominal pain starting yesterday evening. She reports recent small bowel obstruction which resolved after what sounds like gastrograffin study. She has had some recent difficulties with abdominal pain and had an appendectomy fairly recently as well. She denied fever or chills. She had and NG tube placed with improvement in symptoms. Discussed with surgery with gastrograffin study given earlier. Later this afternoon, patient had passed gas and had a bowel movement. NG tube removed and patient was advanced to clear liquids. [facility] Medical History Greater trochanteric bursitis of right hip Encounter for smoking cessation counseling Somatic dysfunction of abdominal region Psoas muscle strain Greater trochanteric bursitis of right hip Dizziness Insomnia disorder, with non-sleep disorder mental comorbidity Fatigue Tobacco abuse disorder Chronic pain Lumbar spine pain Cervical spine disease Hypothyroidism Chronic back pain Depression Anxiety Surgical History Status post hysterectomy Social History marital status: details: 's name....Bipin household members: spouse lives independently: Yes occupational status: unemployed Smoking Status: Current every day smoker alcohol intake: former substance use type: does not use Meds Home Medications and Allergies Home Medications Medication Instructions Recorded Confirmed Type gabapentin 300 mg capsule 300 mg PO BEDTIME 09/18/23 04/06/24 History duloxetine 60 mg capsule,delayed 60 mg PO DAILY 04/06/24 04/06/24 History release levothyroxine 88 mcg tablet 88 mcg PO DAILY 04/06/24 04/06/24 History Allergies Allergy/AdvReac Type Severity Reaction Status Date / Time codeine [CODEINE] Allergy Severe ANAPHYLAXIS Verified 03/04/24 09:43 Penicillins [PENICILLINS] Allergy Severe ANAPHYLAXIS Verified 03/04/24 09:43 shellfish derived Allergy Severe CRAB, Verified 03/04/24 09:43 [SHELLFISH DERIVED] SWELLING AIRWAIR CLOSED latex [LATEX] Allergy Mild rash Verified 03/04/24 09:43 Review of Systems Review of Systems Narrative: All other systems reviewed with the patient and are negative unless otherwise stated. Exam Vital Signs (past 8 hours): - 04/06/24 09:46 04/06/24 13:00 04/06/24 13:46 Temperature 98.0 F Pulse Rate 77 Respiratory Rate 16 Blood Pressure 127/77 Pulse Oximetry 96 97 97 Oxygen Delivery Method Room Air Room Air Oxygen Delivery Method Room Air Oxygen Flow Rate 0 Narrative Exam Narrative: Gen: WDWN no acute distress CV RRR no m/r/g Pulm: CTA b/l Abd: S NT ND Ext: No edema. Objective Labs 04/06/24 01:00 04/06/24 01:00 Labs: Laboratory Results - last 24 hr 04/06/24 01:00 WBC 5.1 RBC 4.23 Hgb 13.2 Hct 38.1 MCV 90.1 MCH 31.2 MCHC 34.6 RDW 13.8 Plt Count 231 Neut % (Auto) 56.1 Lymph % (Auto) 27.7 [place] % (Auto) 12.6 Eos % (Auto) 2.5 Baso % (Auto) 1.1 Neut # (Auto) 2900 Lymph # (Auto) 1400 [place] # (Auto) 600 Eos # (Auto) 100 Baso # (Auto) 100 Sodium 136 L Potassium 3.7 Chloride 109 H Carbon Dioxide 18 L BUN 8 Creatinine 0.69 Estimated GFR > 60 BUN/Creatinine Ratio 11.6 Glucose 92 Calcium 9.1 Total Bilirubin 0.7 AST 32 ALT 22 Alkaline Phosphatase 89 Total Protein 8.8 H Albumin 4.1 Globulin 4.7 H Albumin/Globulin Ratio 0.9 L Lipase 48 Assessment & Plan Assessment & Plan narrative: 1. SBO, already resolving, due to adhesions - Patient had NG tube placed, now resolving after gastrograffin - advance diet as tolerated, clear for now - appreciate general surgery consultation, discussed with surgeon today. - electrolytes currently unremarkable but will continue to follow 2. hypothyroidism - held today, can restart home dosing tomorrow morning of 88 mcg. Code: Full, surrogate is patient's spouse DVT: Lovenox daily I have utilized all available immediate resources to obtain, update, or review the patient's current medications. Dispo: patient admitted under inpatient status. Likely discharge home in 1-2 days depending on symptoms after resolution of bowel obstruction. Additional history obtained via discussions with the general surgeon and bedside staff, case management team, and pharmacists. These discussions contributed to the creation of the above assessment and plan. I have reviewed patient's presenting documentation, labs, and imaging personally. Time-Based Coding :: [TOTAL MINUTES] spent with patient and on the chart (including review of chart, obtaining history, exam, reviewing outside data, placing orders, documenting exam and treatment plan, and counseling patient) on [DATE].
--- NOTE | 2024-04-06 17:51 | PC.NURSE ---
Day shift: Notified MD Bashir that patient ate clear liquid dinner and her abdomen became very distended. Patient states mild spastic pain. No nausea. Patient states she has had 3 episodes of watery diarrhea after she drank 1/2 of the gastrogaphen drink. Patient refused to drink the rest of it. Pt OOB walking in her room. Bowel sounds absent, no flatus. MD Bashir stated ok to continue with clears for now, will continue to monitor.
[2024-04-06] MEDS: GABAPENTIN 300 MG CAPSULE PO (21:14)
[2024-04-07] VITALS (10 sets, daily range): BP systolic 114–142; BP diastolic 59–96; PULSE 68–96; RESP 16–20; TEMP 36.2–36.6; O2SAT 96–100
[2024-04-07 06:07] LABS: Add Manual Diff / Slide Review NO; Basophils Absolute Auto 0 /uL (0-100); Basophils Percent Auto 0.9 % (0-2); Eosinophils Absolute Auto 100 /uL (0-450); Eosinophils Percent Auto 2.9 % (2-4); Hematocrit 35.6 % (36-46); Lymphocytes Absolute Auto 1400 /uL (1100-4500); Mean Corpuscular HGB Conc 33.8 % (30-36); Mean Corpuscular Hemoglobin 31.1 PG (26-34); Mean Corpuscular Volume 92.1 fL (80-100); Monocytes Absolute Auto 600 /uL (0-900); Neutrophils Absolute Auto 2700 /uL (1500-7000); Neutrophils Percent Auto 55.2 % (50-75); Platelet Count 207 X10^3/uL (150-400); Red Blood Cell Count 3.86 X10^6/uL (4.0-5.2); Red Cell Distribution Width 14.1 % (11.6-14.8)
[2024-04-07] MEDS: LEVOTHYROXINE 88 MCG TABLET PO (06:15)
[2024-04-07 06:20] LABS: Alanine Aminotransferase 15 IU/L (<35); Albumin 3.4 g/dL (3.5-5.0); Albumin Globulin Ratio 0.9 (1.0-2.8); Alkaline Phosphatase 69 U/L (38-126); Aspartate Aminotransferase 26 IU/L (14-36); BUN Creatinine Ratio 5.3 (6-22); Bilirubin Total 0.6 mg/dL (0.2-1.3); Blood Urea Nitrogen 4 mg/dL (7-17); Calcium 8.7 mg/dL (8.4-10.2); Carbon Dioxide 19 mmol/L (22-32); Chloride 116 mmol/L (98-107); Estimated Glomerular Filt Rate > 60 mL/min (>60); Globulin 3.7 g/dL (1.7-4.1); Glucose 73 mg/dL (70-100); HEMOLYSIS < 15 (0-50); Magnesium 1.8 mg/dL (1.6-2.3); Potassium 3.8 mmol/L (3.4-5.1); Sodium 139 mmol/L (137-145); Total Protein 7.1 g/dL (6.3-8.2)
[2024-04-07] MEDS: DULOXETINE 30 MG CAPSULE 60 MG PO (08:15)
--- NOTE | 2024-04-07 09:10 | PM.CALLCOV.1 ---
Call Coverage Note Note Date of Patient Contact: 04/07/24 Time of Patient Contact: 09:11 Narrative of Care Provided: Prep for colonoscopy tomorrow 04/08
[2024-04-07] MEDS: PEG3350/SOD SULF,BICARB,CL/KCL 4,000 ML SOLUTION 4000 ML PO (10:00)
--- NOTE | 2024-04-07 11:21 | P.PN_ITS ---
Subjective Subjective Interval history: Tolerated some liquids this morning without pain. Discussed with general surgeon today whom would like to do colonoscopy tomorrow. Patient tolerating prep, bowel movements are liquidy and yellow currently. Exam Vital Signs (past 8 hours): - 04/07/24 05:00 04/07/24 08:00 04/07/24 08:00 Temperature 97.9 F Pulse Rate 79 Respiratory Rate 18 16 Blood Pressure 119/81 Pulse Oximetry 97 99 Oxygen Delivery Method Room Air Oxygen Flow Rate 0 04/07/24 09:00 Temperature Pulse Rate Respiratory Rate Blood Pressure Pulse Oximetry 96 Oxygen Delivery Method Room Air Oxygen Flow Rate Oxygen Delivery Method Room Air Oxygen Flow Rate 0 Narrative Exam Narrative: Gen: WDWN no acute distress CV RRR no m/r/g Pulm: CTA b/l Abd: S NT ND Ext: No edema. Objective Labs 04/07/24 05:57 04/07/24 05:57 Labs: Laboratory Results - last 24 hr 04/07/24 05:57 WBC 5.0 RBC 3.86 L Hgb 12.0 Hct 35.6 L MCV 92.1 MCH 31.1 MCHC 33.8 RDW 14.1 Plt Count 207 Neut % (Auto) 55.2 Lymph % (Auto) 28.0 Grainger % (Auto) 13.0 Eos % (Auto) 2.9 Baso % (Auto) 0.9 Neut # (Auto) 2700 Lymph # (Auto) 1400 Grainger # (Auto) 600 Eos # (Auto) 100 Baso # (Auto) 0 Sodium 139 Potassium 3.8 Chloride 116 H Carbon Dioxide 19 L BUN 4 L Creatinine 0.76 Estimated GFR > 60 BUN/Creatinine Ratio 5.3 L Glucose 73 Calcium 8.7 Magnesium 1.8 Total Bilirubin 0.6 AST 26 ALT 15 Alkaline Phosphatase 69 Total Protein 7.1 Albumin 3.4 L Globulin 3.7 Albumin/Globulin Ratio 0.9 L PFSH Medical History Greater trochanteric bursitis of right hip Encounter for smoking cessation counseling Somatic dysfunction of abdominal region Psoas muscle strain Greater trochanteric bursitis of right hip Dizziness Insomnia disorder, with non-sleep disorder mental comorbidity Fatigue Tobacco abuse disorder Chronic pain Lumbar spine pain Cervical spine disease Hypothyroidism Chronic back pain Depression Anxiety Surgical History Status post hysterectomy Social History marital status: details: 's name....Bipin household members: spouse lives independently: Yes occupational status: unemployed Smoking Status: Current every day smoker alcohol intake: former substance use type: does not use Assessment & Plan Assessment & Plan narrative: 1. SBO, already resolving, due to adhesions or inflammatory process - Patient had NG tube placed, now resolving after gastrograffin - continue clear liquids for now pending colonoscopy tomorrow, patient initially had some worsened abd pain with liquids but tolerating liquids better today. - appreciate general surgery consultation, discussed with surgeon today. - electrolytes currently unremarkable but will continue to follow - with recent clinical course, terminal ileum inflammation, discussed with surgeon today who would like to perform colonoscopy tomorrow. Prep today. - continue daily BMP, mild acidosis with bicarb improving today at 19. 2. hypothyroidism - held today, can restart home dosing tomorrow morning of 88 mcg. Code: Full, surrogate is patient's spouse DVT: Lovenox daily I have utilized all available immediate resources to obtain, update, or review the patient's current medications. Dispo: patient admitted under inpatient status. Likely discharge home tomorrow depending on colonoscopy findings. Additional history obtained via discussions with the general surgeon and bedside staff, case management team, and pharmacists. These discussions contributed to the creation of the above assessment and plan. I have reviewed patient's presenting documentation, labs, and imaging personally. Time-Based Coding :: [TOTAL MINUTES] spent with patient and on the chart (including review of chart, obtaining history, exam, reviewing outside data, placing orders, documenting exam and treatment plan, and counseling patient) on [DATE].
--- NOTE | 2024-04-07 11:52 | CM.DANOTE ---
Initial DCP Assessment Note Pt is a 53yo female, resident of [place], presents with SBO, hx of same, partially resolved. PCP: David Kunz Payer: Marlon JERONIMO Reviewed chart, pt discussed in multidisciplinary rounds this morning. Patient scheduled for upper/lower scope with Dr James 04/08. Patient lives independently with spouse and expects to return upon discharge without need. No barriers identified at this time to patient's safe discharge home w/family to assist; close outpatient f/u recommended. CM team will plan to follow clinical course closely in case any DC needs or concerns arise. 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 No History Provided By Patient,Medical Record Prior Living Arrangements Apartment/Condo Household Members spouse Type of transporation used prior to Drives own vehicle admit Independent with ADL's Yes Is patient alert and oriented? Yes Barriers to Discharge No Discharge Plan Home Transportation Arrangement Spouse Referrals Initiated None needed
--- NOTE | 2024-04-07 17:04 | PC.NURSE ---
Pt A/O Ambulating at times in the hallway. Abdomen distended w/ hypo BT Colonoscopy for tomorrow; prep began this afternoon States she has mild cramping like discomfort mid abd. Condition remains essentially unchanged. Call light w/in reach, calls appropriately for needs. Continue w/plan of care.
[2024-04-08] VITALS (29 sets, daily range): BP systolic 106–142; BP diastolic 58–96; PULSE 66–104; RESP 12–20; TEMP 36–36.7; O2SAT 95–100; BMI 21.2
--- NOTE | 2024-04-08 | PATH_ITS ---
[facility] Accession Number: [id number] No. of containers..01 Tissue . 01 Material submitted: . colon - RIGHT COLON . 01 Diagnosis: RIGHT COLON, RIGHT HEMICOLECTOMY: Invasive adenocarcinoma, moderately differentiated; see Case Summary. . CASE SUMMARY - COLON AND RECTUM SPECIMEN Procedure: Right hemicolectomy. TUMOR Tumor site: Ileocecal valve. Histologic type: Adenocarcinoma. Histologic grade: G2, moderately differentiated. Tumor size: 2.7 cm in greatest dimension. Multiple primary sites: Not applicable. Tumor extent: Tumor invades through muscularis propria into pericolonic tissue. Macroscopic tumor perforation: Not identified. Lymphovascular invasion: Not identified. Perineural invasion: Not identified. Tumor budding score: Low (0-4). Treatment effect: No known presurgical therapy. MARGINS Margin status for invasive carcinoma: All margins negative for invasive carcinoma. Margin status for noninvasive tumor: All margins negative for dysplasia. REGIONAL LYMPH NODES Regional lymph node status: Regional lymph nodes present. All regional lymph nodes negative for tumor. Number of lymph nodes with tumor: 0. Number of lymph nodes examined: 12. Tumor deposits: Not identified. DISTANT METASTASIS Distant sites involved: Not applicable. pTNM CLASSIFICATION (AJCC 8TH EDITION) Modified classification: Not applicable. pT category: pT3 pN category: pN0 SPECIAL STUDIES: IMMUNOHISTOCHEMISTRY TESTING FOR MISMATCH REPAIR PROTEINS: . MLH1: Intact nuclear expression. MSH2: Intact nuclear expression. MSH6: Intact nuclear expression. PMS2: Intact nuclear expression. Background nonneoplastic tissue/internal control with intact nuclear expression. . INTERPRETATION: No loss of nuclear expression of MMR proteins: low probability of microsatellite instability-high (MSI-H)* . * There are exceptions to the above IHC interpretations. These results should not be considered in isolation, and clinical correlation with genetic counseling is recommended to assess the need for germline testing. . * This test was developed and its performance characteristics determined by [employer]. It has not been cleared or approved by the U.S. Food and Drug Administration. The FDA has determined that such clearance or approval is not necessary. This test is used for clinical purposes. It should not be regarded as investigational or for research. MRV 04/13/2024 1632 [facility] . 01 Comment: As part of routine quality control inspector, Dr. Aranda has reviewed select slides from this case and agrees with the diagnosis of invasive adenocarcinoma. The findings of invasive adenocarcinoma was discussed between Dr. James and Dr. Cruz on 04/12/2024 at 2:35 p.m. . 01 Electronically signed: . Yonatan Cruz MD, PhD, Pathologist NPI- [id number] . 01 Gross description: . Received in formalin, labeled with two identifiers and right colon, is a right colectomy with attached ileum (3.1 cm in length by 3.5 cm in diameter) and right colon (14.4 cm in length by 4.2 cm in diameter) and no appendix identified. The serosa is murray and smooth with a gold-black area consistent with tattoo ink (3.5 x 2.2 cm) located 5.4 cm from the nearest ileal margin. A moderate amount of adipose tissue is attached. The ileum margin is inked blue. The colon margin is inked black. The mesenteric margin is inked green. A puckered area of serosa (0.7 x 0.7 cm) is located near the ileocecal valve and is inked orange. The ileum contains a small amount of brown mucoid material. A sessile mass (2.7 x 1.6 cm) involves the ileocecal valve. The valve is probe-patent. The mass extends from the mucosa through the muscularis propria but does not clearly involve the pericolonic adipose. The mass is located 2.6 cm from the nearest blue-inked ileal margin, extending to and possibly involving the orange-inked serosa. . The remaining mucosa is murray and velvety with normal appearing folds and no additional lesions identified. The garibay average 0.3 cm thick with no diverticula or perforations identified. Palpation reveals 16 murray lymph node candidates, 0.2-1.7 cm in greatest dimension. . Vat Packer sections are submitted as follows: A1: Ileal margin en face. A2: Colon margin en face. A3: Vat Packer mesenteric margin en face. A4-A5: Mass to deepest extension. A6-A7: Mass to normal and serosa. A8: Normal colon and ileum. A9: Four intact lymph node candidates. A10: Four intact lymph node candidates. A11: Three intact lymph node candidates. A12: Five intact lymph node candidates. ([id number]) /FRR 04/09/2024 1328 Local . 01 Pathologist provided ICD-10: C18.0 . 01 CPT . 809050, X83476, Z74008 Specimen Comment: A courtesy copy of this report has been sent to [phone] Performed at: [address] [id number] MD Rolando Escamilla MD Phone: [phone]
--- NOTE | 2024-04-08 | PATH_ITS ---
[facility] Accession Number: [id number] No. of containers..01 Tissue . 01 Material submitted: . colon - RIGHT COLON MASS . 01 Diagnosis: RIGHT COLON MASS, BIOPSY: Fragments of tubular adenoma with high-grade dysplasia; please see comment. MRV 04/13/2024 1440 Local . 01 Comment: A concurrent right hemicolectomy specimen ([id number]) is positive for invasive adenocarcinoma. Please see that report for complete details. . 01 Electronically signed: . Yonatan Cruz MD, PhD, Pathologist NPI- [id number] . 01 Gross description: . Received in formalin, labeled with two patient identifiers and right colon mass, are four murray soft tissue fragments measuring 0.2-0.3 cm in greatest dimension. Submitted in cassette A1. ([id number]) /FRR 04/09/2024 1248 Local . 01 Pathologist provided ICD-10: C18.0 . 01 CPT . 175414 Specimen Comment: A courtesy copy of this report has been sent to [phone] Performed at: [address] [id number] MD Rolando Escamilla MD Phone: [phone]
[2024-04-08] MEDS: LEVOTHYROXINE 88 MCG TABLET PO (05:11)
[2024-04-08 06:39] LABS: Add Manual Diff / Slide Review NO; Basophils Absolute Auto 0 /uL (0-100); Eosinophils Absolute Auto 100 /uL (0-450); Eosinophils Percent Auto 3.7 % (2-4); Hematocrit 35.8 % (36-46); Hemoglobin 12.2 g/dL (12.0-16.0); Lymphocytes Absolute Auto 1200 /uL (1100-4500); Lymphocytes Percent Auto 31.6 % (25-40); Mean Corpuscular HGB Conc 34.1 % (30-36); Mean Corpuscular Hemoglobin 31.2 PG (26-34); Mean Corpuscular Volume 91.7 fL (80-100); Monocytes Absolute Auto 500 /uL (0-900); Monocytes Percent Auto 14.6 % (3-14); Neutrophils Absolute Auto 1800 /uL (1500-7000); Neutrophils Percent Auto 49.1 % (50-75); Platelet Count 204 X10^3/uL (150-400); Red Blood Cell Count 3.91 X10^6/uL (4.0-5.2); Red Cell Distribution Width 13.5 % (11.6-14.8); White Blood Cell Count 3.6 X10^3/uL (4.5-11.0)
[2024-04-08 06:50] LABS: Alanine Aminotransferase 15 IU/L (<35); Albumin 3.7 g/dL (3.5-5.0); Albumin Globulin Ratio 0.9 (1.0-2.8); Alkaline Phosphatase 74 U/L (38-126); Aspartate Aminotransferase 26 IU/L (14-36); Bilirubin Total 0.7 mg/dL (0.2-1.3); Carbon Dioxide 20 mmol/L (22-32); Chloride 111 mmol/L (98-107); Estimated Glomerular Filt Rate > 60 mL/min (>60); Globulin 3.9 g/dL (1.7-4.1); Glucose 79 mg/dL (70-100); HEMOLYSIS < 15 (0-50); Magnesium 1.8 mg/dL (1.6-2.3); Potassium 3.6 mmol/L (3.4-5.1); Sodium 138 mmol/L (137-145); Total Protein 7.6 g/dL (6.3-8.2)
[2024-04-08 06:51] LABS: BUN Creatinine Ratio 2.8 (6-22); Blood Urea Nitrogen 2 mg/dL (7-17)
--- NOTE | 2024-04-08 07:40 | PM.PN.1 ---
Subjective Subjective Interval history: Interval history: 53 F recent complex history of terminal ileal thickening admitted with sbo now resolved. Erika is going to do a c-scope tomorrow to see if anything is going on in her colon / terminal ileum. She hasn't made it past clears as far as a diet yet. Discharge home likely 1-2 days. S: She feels 50% improved today. She had a small bowel movement yesterday. Colonoscopy on April 08 revealed an obstructing mass at the ileocecal junction Exam Vital Signs (past 8 hours): - 04/08/24 01:00 04/08/24 03:00 04/08/24 05:00 Pulse Rate 84 Respiratory Rate 19 Blood Pressure 135/80 Pulse Oximetry 100 98 98 Oxygen Delivery Method Room Air Room Air Oxygen Flow Rate 0 0 Oxygen Delivery Method Room Air Oxygen Flow Rate 0 Narrative Exam Narrative: NAD, alert and oriented. Fluent speech. Lungs are clear, normal rate and effort. Heart is regular, no murmur gallop or rub. Abdomen is soft, non distended. Extremities are free of edema. Objective Labs 04/08/24 06:00 04/08/24 06:00 Labs: Laboratory Results - last 24 hr 04/08/24 06:00 WBC 3.6 L RBC 3.91 L Hgb 12.2 Hct 35.8 L MCV 91.7 MCH 31.2 MCHC 34.1 RDW 13.5 Plt Count 204 Neut % (Auto) 49.1 L Lymph % (Auto) 31.6 Swisher % (Auto) 14.6 H Eos % (Auto) 3.7 Baso % (Auto) 1.0 Neut # (Auto) 1800 Lymph # (Auto) 1200 Swisher # (Auto) 500 Eos # (Auto) 100 Baso # (Auto) 0 Sodium 138 Potassium 3.6 Chloride 111 H Carbon Dioxide 20 L BUN 2 L Creatinine 0.71 Estimated GFR > 60 BUN/Creatinine Ratio 2.8 L Glucose 79 Calcium 9.0 Magnesium 1.8 Total Bilirubin 0.7 AST 26 ALT 15 Alkaline Phosphatase 74 Total Protein 7.6 Albumin 3.7 Globulin 3.9 Albumin/Globulin Ratio 0.9 L PFSH Medical History Greater trochanteric bursitis of right hip Encounter for smoking cessation counseling Somatic dysfunction of abdominal region Psoas muscle strain Greater trochanteric bursitis of right hip Dizziness Insomnia disorder, with non-sleep disorder mental comorbidity Fatigue Tobacco abuse disorder Chronic pain Lumbar spine pain Cervical spine disease Hypothyroidism Chronic back pain Depression Anxiety Surgical History Status post hysterectomy Social History marital status: details: 's name....Bipin household members: spouse lives independently: Yes occupational status: unemployed Smoking Status: Current every day smoker alcohol intake: former substance use type: does not use Assessment & Plan Assessment & Plan narrative: 1. SBO, present on admission and active. - Patient had NG tube placed, now resolving after gastrograffin 2. Ileocecal obstructing mass, present on admission and active. 3. Hypothyroidism - held today, can restart home dosing tomorrow morning of 88 mcg. PLAN: -right hemicolectomy later today. Code: Full, surrogate is patient's spouse DVT: Lovenox daily Dispo: patient admitted under inpatient status. Likely discharge home in 2-3 days. Time-Based Coding :: 25 min spent with patient and on the chart (including review of chart, obtaining history, exam, reviewing outside data, placing orders, documenting exam and treatment plan, and counseling patient) on 04/08.
[2024-04-08] MEDS: DULOXETINE 30 MG CAPSULE 60 MG PO (08:37)
[2024-04-08] MEDS: ACETAMINOPHEN 325 MG TABLET 650 MG PO (08:37)
--- NOTE | 2024-04-08 11:15 | SUR.OPER ---
egd scope 043
[2024-04-08] MEDS: LACTATED RINGERS 1,000 ML 42 ML IV ×2 (11:22→15:44)
--- NOTE | 2024-04-08 12:13 | PM.OP.EC ---
Operative Date/Time/Diagnoses Date of procedure: 04/08/24 Time of procedure: 12:15 Pre-op diagnosis: Abdominal pain Post-op diagnosis: other (Ileocecal mass) Procedure & Clinicians Study performed: Diagnostic esophagogastroduodenoscopy and colonoscopy Same procedure as scheduled: Yes Indications: 53-year-old woman with chronic abdominal pain of unknown etiology admitted to the hospital for a partial small bowel obstruction. Imaging shows somewhat abnormal thickening of the ascending colon. Surgeon: Burt James Procedure Notes Procedure in detail: The history and physical was performed/updated and the patient is ASA class is 2. The procedure was discussed in detail with the patient. Potential risks complications including infection, bleeding, missed diagnosis, perforation, need for surgery, and were explained. Their questions were answered and informed consent was obtained. Patient placed in left lateral decubitus position. Time out was performed. Procedural sedation was administered by Anesthesia. A bite block was placed. the scope was inserted into the mouth and advanced through the esophagus and into the stomach. the pylorus was intubated and the duodenum was examined to the 2nd portion.. The scope was retroflexed within the stomach. The stomach was then decompressed and scope pulled back to the GE junction. The scope was then removed Examination began with a thorough inspection of the perianal area there was no evidence of fissures, fistulae, external hemorrhoids or cutaneous malignancy. The colonoscopy scope was then placed into the anal canal and was advanced to the cecum, which was identified by the ileocecal valve, the appendiceal orifice and the confluence of the taenia. The scope was then slowly withdrawn examining colon thoroughly in all directions, irrigating it of any residual stool. FINDINGS Obstructing mass at the ileocecal valve. Unable to intubate the cecum. Mass was biopsied and tattooed. Moderate-sized hiatal hernia The patient tolerated the procedure well. They will be discharged once criteria are met. The prep was of good/excellent quality. The withdrawl time was 6 minutes. 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
--- NOTE | 2024-04-08 15:07 | SUR.OPER ---
Supine on padded OR bed, head on pillow, arms padded and tucked at sides, legs uncrossed, safety belt at thigh, tape over blanket over lower legs .
--- NOTE | 2024-04-08 15:39 | PM.CALLCOV.1 ---
Call Coverage Note Note Date of Patient Contact: 04/08/24 Time of Patient Contact: 15:39 Narrative of Care Provided: 53-year-old woman admitted to the hospital with a recurring partial small bowel obstruction CT abdomen pelvis demonstrates abnormal thickening of the ascending colon. She underwent colonoscopy today which shows a large near obstructing mass at the ileocecal valve. Its appearance is consistent with malignancy. Recommend proceeding with a laparoscopic-assisted right hemicolectomy. Preoperative imaging demonstrates no evidence of metastatic disease. Overview of the operation reviewed with the patient. Operative risks including infection, hemorrhage, damage to surrounding structures, anastomotic leak and rare but serious events such as myocardial infarction, stroke and were discussed. Her questions have been answered and she is in agreement with this plan. She provides her written and verbal consent to proceed.
[2024-04-08] MEDS: metroNIDAZOLE 500 MG/100 ML PIGGYBACK 100 MG IV (15:59)
[2024-04-08] MEDS: levoFLOXacin 500 MG/100 ML PIGGYBACK 100 MG IV (16:07)
--- NOTE | 2024-04-08 16:22 | SUR.OPER ---
Supine on padded OR bed, head on pillow, arms secured on padded arm boards at <90 degrees abduction, legs uncrossed, safety belt at thigh, tape over blanket over lower legs.
[2024-04-08] MEDS: BUPIVACAINE 0.25% (PF) VIAL 30 ML INJ (16:48)
--- NOTE | 2024-04-08 17:50 | PM.OP.1 ---
Operative Date/Time/Diagnoses Date of procedure: 04/08/24 Time of procedure: 17:50 Pre-op diagnosis: Colon cancer Post-op diagnosis: same Procedure & Clinicians Procedure: Open right hemicolectomy Implantation of non-biologic mesh to reinforce the abdominal wall fascia Same procedure as scheduled: Yes Indications: 53-year-old woman with recurrent partial small bowel obstruction admitted to the hospital. CT demonstrates abnormal thickening of the ascending colon. She underwent colonoscopy earlier today which demonstrates a obstructing mass at the ileocecal valve. The remainder of her imaging is negative for evidence of metastatic disease. Operation was performed open as she has a distended abdomen secondary to the bowel obstruction. Surgeon: Burt James Click Yes if Unassisted: Yes Anesthesia Type: General Operative Notes Findings: Obstructing mass within the ileocecal valve with extensive small-bowel dilation. Prominent ileocolic lymph nodes. Liver is absent of metastatic disease. Specimen(s): other (Right colon) Estimated Blood Loss (mL): 100 Procedure in detail: Patient was brought to the operating room placed supine on the table. Bilateral lower extremity compression devices were applied. General anesthesia was induced he was intubated with an endotracheal tube. Bonilla catheter was sterilely placed. She received Flagyl and levofloxacin prior to skin incision. Time-out was performed. A midline laparotomy was made. The fascia was grasped sharply elevated in the abdomen was entered. There were numerous dilated loops of small bowel which were of this rated. There was a palpable tumor at the ileocecal valve. The liver was inspected and was free of metastatic disease. The lymph nodes along the ileocolic pedicle were somewhat prominent. Window within the terminal ileum was made in the small bowel was divided using the linear staple blue load. The ileocolic pedicle was divided just distal to its takeoff off the SMA. It was doubly ligated at its base and then divided. The right colon was already quite mobile in it was further medialized incising along the white line of Toldt. The right ureter was identified as it crossed the iliac vessels. This was kept posterior out of harm's way. Dissection was continued up to the hepatic flexure. The transverse colon was divided at the level of the hepatic flexure in a similar fashion. The sweep of the duodenum was identified and kept posterior out of harm's way. The mesentery to the right colon was then divided using the LigaSure. The specimen was passed off labeled right colon. A enterotomy and a colotomy were made. The small bowel was decompressed. A [id number]-adej functional end and anastomosis was formed using a 3rd staple load. The common channel was widely patent and hemostatic. The common opening was then closed in a running fashion using 3-0 PDS. Suture line was then imbricated using interrupted silk suture. The anastomosis was tested there was no evidence of leak it was well perfused and without tension. Mesenteric defect was closed. Bowel was returned to the abdomen which was copiously irrigated and returned clear hemostasis was checked. The fascia was closed with PDS suture in a running manner. Given the significant length of the incision her malnutrition and the emergent nature of the case she was deemed to be at high-risk of incisional hernia development and therefore a prophylactic piece of Phasix mesh was applied to the anterior fascia in an onlay manner. The mesh was cut to size after skin flaps were developed in all directions. The mesh was applied to the anterior fascia and secured using Tisseel. The subcutaneous tissue was closed with Vicryl and the skin closed with junior. Patient was transferred to recovery room following extubation in stable condition. Complications: none Post-operative Condition: stable Disposition: Acute Care
[2024-04-08] MEDS: HYDROMORPHONE 1 MG INJ IV ×4 (18:21→18:52)
[2024-04-08] MEDS: hydrOXYzine 50 MG/ML INJ 25 MG IM (18:23)
[2024-04-08] MEDS: fentaNYL 100 MCG/2 ML INJ IV ×4 (18:33→18:50)
[2024-04-08] MEDS: OXYCODONE IR 5 MG TABLET PO (19:10)
--- NOTE | 2024-04-08 19:50 | PC.NURSE ---
Patient arrived from PACU at 1930. Per Richelle LORENZANA, 500ml clear yellow urine emptied before being transferred up to ACU.
[2024-04-08] MEDS: LACTATED RINGERS 1,000 ML 120 ML IV (20:04)
[2024-04-08] MEDS: HYDROMORPHONE 0.5 MG INJ IV (21:22)
[2024-04-09] VITALS (9 sets, daily range): BP systolic 109–127; BP diastolic 68–73; PULSE 85–106; RESP 16–22; TEMP 36.6–37; O2SAT 94–97
[2024-04-09] MEDS: HYDROMORPHONE 0.5 MG INJ IV ×3 (01:40→09:03)
[2024-04-09] MEDS: LACTATED RINGERS 1,000 ML 120 ML IV ×3 (03:39→20:31)
[2024-04-09 06:32] LABS: Add Manual Diff / Slide Review NO; Basophils Absolute Auto 0 /uL (0-100); Basophils Percent Auto 0.1 % (0-2); Eosinophils Absolute Auto 0 /uL (0-450); Hematocrit 33.5 % (36-46); Hemoglobin 11.4 g/dL (12.0-16.0); Lymphocytes Absolute Auto 500 /uL (1100-4500); Lymphocytes Percent Auto 10.7 % (25-40); Mean Corpuscular HGB Conc 34.2 % (30-36); Mean Corpuscular Hemoglobin 31.1 PG (26-34); Mean Corpuscular Volume 90.8 fL (80-100); Monocytes Absolute Auto 300 /uL (0-900); Monocytes Percent Auto 6.9 % (3-14); Neutrophils Absolute Auto 4000 /uL (1500-7000); Neutrophils Percent Auto 82.3 % (50-75); Platelet Count 172 X10^3/uL (150-400); Red Blood Cell Count 3.68 X10^6/uL (4.0-5.2); Red Cell Distribution Width 13.4 % (11.6-14.8); White Blood Cell Count 4.8 X10^3/uL (4.5-11.0)
[2024-04-09 07:06] LABS: Alanine Aminotransferase 15 IU/L (<35); Albumin Globulin Ratio 0.9 (1.0-2.8); Alkaline Phosphatase 52 U/L (38-126); Aspartate Aminotransferase 22 IU/L (14-36); BUN Creatinine Ratio 6.3 (6-22); Bilirubin Total 0.7 mg/dL (0.2-1.3); Blood Urea Nitrogen 4 mg/dL (7-17); Calcium 8.1 mg/dL (8.4-10.2); Carbon Dioxide 22 mmol/L (22-32); Chloride 105 mmol/L (98-107); Estimated Glomerular Filt Rate > 60 mL/min (>60); Globulin 3.5 g/dL (1.7-4.1); Glucose 88 mg/dL (70-100); HEMOLYSIS < 15 (0-50); Magnesium 1.1 mg/dL (1.6-2.3); Potassium 3.9 mmol/L (3.4-5.1); Sodium 134 mmol/L (137-145); Total Protein 6.5 g/dL (6.3-8.2)
--- NOTE | 2024-04-09 07:41 | PM.PN.1 ---
Subjective Subjective Interval history: Interval history: 53 F recent complex history of terminal ileal thickening admitted with sbo now resolved. Erika is going to do a c-scope tomorrow to see if anything is going on in her colon / terminal ileum. She hasn't made it past clears as far as a diet yet. Colonoscopy revealed an obstructing mass at the ileocecal junction. She underwent an open right hemicolectomy on April 08. She was found to have prominent ileocolic lymph nodes. The liver appeared to be absent metastatic disease. S: She was having abdominal pain, but is reasonably well controlled with her pain medication. No nausea, some burping. No flatus or stool. Surgery did okay her for clear liquids. Exam Vital Signs (past 8 hours): - 04/09/24 01:00 04/09/24 03:00 04/09/24 05:00 Temperature 97.8 F Pulse Rate 85 Respiratory Rate 18 Blood Pressure 127/73 Pulse Oximetry 97 96 97 Oxygen Delivery Method Room Air Room Air Oxygen Flow Rate 0 Oxygen Delivery Method Room Air Oxygen Flow Rate 0 Narrative Exam Narrative: NAD, alert and oriented. Fluent speech. Lungs are clear, normal rate and effort. Heart is regular, no murmur gallop or rub. Abdomen is soft, non distended. Tender diffusely. Minimal BT's Extremities are free of edema. Objective Labs 04/09/24 06:24 04/09/24 06:24 Labs: Laboratory Results - last 24 hr 04/09/24 06:24 WBC 4.8 RBC 3.68 L Hgb 11.4 L Hct 33.5 L MCV 90.8 MCH 31.1 MCHC 34.2 RDW 13.4 Plt Count 172 Neut % (Auto) 82.3 H D Lymph % (Auto) 10.7 L D [place] % (Auto) 6.9 Eos % (Auto) 0.0 L Baso % (Auto) 0.1 Neut # (Auto) 4000 Lymph # (Auto) 500 L [place] # (Auto) 300 Eos # (Auto) 0 Baso # (Auto) 0 Sodium 134 L Potassium 3.9 Chloride 105 Carbon Dioxide 22 BUN 4 L Creatinine 0.63 Estimated GFR > 60 BUN/Creatinine Ratio 6.3 Glucose 88 Calcium 8.1 L Magnesium 1.1 L Total Bilirubin 0.7 AST 22 ALT 15 Alkaline Phosphatase 52 Total Protein 6.5 Albumin 3.0 L Globulin 3.5 Albumin/Globulin Ratio 0.9 L PFSH Medical History Greater trochanteric bursitis of right hip Encounter for smoking cessation counseling Somatic dysfunction of abdominal region Psoas muscle strain Greater trochanteric bursitis of right hip Dizziness Insomnia disorder, with non-sleep disorder mental comorbidity Fatigue Tobacco abuse disorder Chronic pain Lumbar spine pain Cervical spine disease Hypothyroidism Chronic back pain Depression Anxiety Surgical History Status post hysterectomy Social History marital status: details: 's name....Bipin household members: spouse lives independently: Yes occupational status: unemployed Smoking Status: Current every day smoker alcohol intake: former substance use type: does not use Assessment & Plan Assessment & Plan narrative: 1. SBO, present on admission and improved. - Patient had NG tube placed, now resolving after gastrograffin 2. Ileocecal obstructing mass, present on admission and active. -S/P right hemicolectomy. Post-operative care. -abnormal lymph node. 3. Hypothyroidism, present on admission and stable. - held today, can restart home dosing tomorrow morning of 88 mcg. PLAN: -diet advance per surgery -pathology pending -OOB -standard postoperative care. Code: Full, surrogate is patient's spouse DVT: Lovenox daily Time-Based Coding :: 25 min spent with patient and on the chart (including review of chart, obtaining history, exam, reviewing outside data, placing orders, documenting exam and treatment plan, and counseling patient) on 04/09.
[2024-04-09] MEDS: ENOXAPARIN 40 MG/0.4 ML SYRINGE SUBCUT (09:04)
[2024-04-09] MEDS: CELECOXIB 200 MG CAPSULE PO ×2 (09:05→21:21)
[2024-04-09] MEDS: MAGNESIUM SULFATE 4 GM/100 ML PIGGYBACK IV (09:05)
[2024-04-09] MEDS: DULOXETINE 30 MG CAPSULE 60 MG PO (09:05)
--- NOTE | 2024-04-09 09:20 | PT.IIE ---
Current Diagnoses Partial intestinal obstruction, unspecified as to cause (04/06/24) Unspecified intestinal obstruction, unspecified as to partial versus complete obstruction (04/06/24) Surgery Performed Operation Date: 04/08/24 14:00 Actual Procedures p Esophagogastroduodenoscopy - Burt James MD s Colonoscopy WITH TATTOO AND BIOPSY - Burt James MD Operation Date: 04/08/24 15:15 <No data on this case meets the specified criteria> Operation Date: 04/08/24 16:45 Actual Procedures p Laparoscopically Assisted Colectomy - Burt James MD Surgical History (Last Reviewed 04/08/24 @ 07:41 by Kvng Ibarra MD) Status post hysterectomy Medical History (Last Reviewed 04/08/24 @ 07:41 by Kvng Ibarra MD) Anxiety Cervical spine disease Chronic back pain Chronic pain Depression Dizziness Encounter for smoking cessation counseling Fatigue Greater trochanteric bursitis of right hip Greater trochanteric bursitis of right hip Hypothyroidism Insomnia disorder, with non-sleep disorder mental comorbidity Lumbar spine pain Psoas muscle strain Somatic dysfunction of abdominal region Tobacco abuse disorder Physical Therapy Inpatient Evaluation/Re-Eval M1 PT/OT-IP Prior Functional Status Start: 04/09/24 12:19 Freq: NEEDED Status: Active Protocol: Document 04/09/24 09:20 AB (Rec: 04/09/24 12:31 AB [id number]) Medical Review Prior Functional Status Medical History Reviewed Yes Communication able to make needs known Mobility and Gait pt stated that she was independent with all mobilities and ambulation without AD Social History Household Members spouse Living Arrangements Apartment/Condo Number of Floors (Floors) One Floor Number of Stairs To Enter/Railing? 3 platform steps to ente rthe house Home Environment Standard Height Toilet,Tub/ Shower M2 PT-IP Current Condition Start: 04/09/24 12:19 Freq: NEEDED Status: Active Protocol: Document 04/09/24 09:20 AB (Rec: 04/09/24 12:31 AB [id number]) Physical Therapy Current Condition Current Condition Evaluation Date 04/09/24 Treatment Diagnosis s/p open R hemicolectomy; difficulty in walking Onset Date 04/06/24 M3 PT-IP Subjective Start: 04/09/24 12:19 Freq: NEEDED Status: Active Protocol: Document 04/09/24 09:20 AB (Rec: 04/09/24 12:31 [id number]) Subjective Physical Therapy Visit Type Type Initial Evaluation Visit Start Time 09:20 Visit Stop Time 10:15 Number of SOCIAL SERVICE ASSISTANT Visits 0 Physical Therapy Visit Comments Patient Comments agreeable to do PT Therapy Pain Assessment Pain When Pain Assessed At Rest Pain Present Pain Present Pain Reported Location Upper Abdomen Intensity 10 Scale Used Numeric (0 - 10) Pain Behaviors Facial Grimacing,Guarding, Holding Area,Moaning Pain Management Techniques Apply Cold,Distraction, Modification of Treatment,Re- positioning,Timing of Activity with Medications M4 PT-IP Mobility and Gait Start: 04/09/24 12:19 Freq: NEEDED Status: Active Protocol: Document 04/09/24 09:20 AB (Rec: 04/09/24 12:31 [id number]) PT-Bed Mobility Assessment Rolling Type of Rolling Log Rolling Level of Assist Maximal Assistance Supine to Sit Supine to Sit Maximum Assistance PT-Transfer Assessment Sit to and From Stand Sit to and from Stand Moderate Assistance,Maximum Assistance,1 Person Assistance ,Use of Upper Extremities Equipment Transfer Assistive Device Gait Belt,Front Wheeled Walker Orthotic/Prosthetic Devices or Brace: No Transfers Transfer Destination Chair Transfer Technique ambulated Transfer Ability Level of Assist Moderate Assistance,Maximum Assistance,1 Person Assistance ,Use of Upper Extremities Comments Mobility Comments pt supine in bed and agreeable to do PT. obtained PLOF and home set up from pt. educated pt regarding abdominal precautions and log roll bed mobility. post-op handout provided. BP supine: 114/68. pt completed log roll supine to sit max A and max cues needing 3 attempts to complete . c/o dizziness but decreases after a few minutes. BP: 123/ 42. pt completed sit to stand mod to max A and max cues and ambulated ~ 12 ft using FWW mod to max A and max cues. presents with unsteady shuffling gait. pt sat on the chair. agreed to stay up on the chair. positioned pt on the chair. call light and table placed within reach. Gait Assessment Gait Gait Assistance Required: Moderate Assistance,Maximum Assistance Distance (Feet) 12 Able to Maintain Weight Bearing Status Yes During Gait Assistive Devices Assistive Device Gait Belt,Front Wheeled Walker Orthotic/Prosthetic Devices or Brace: No Gait Deviations General Gait Pattern Decreased Stride Length, Decreased Feet Clearance, Narrow Based Gait Factors Limiting Gait Function Factors Limiting Gait Function Decreased Activity Tolerance, Decreased Strength,Difficulty Following Directions,Limited Range of Motion,Pain,Poor Balance,Poor Safety Awareness PT-Balance Assessment Sitting Balance and Reactions Static Sitting Balance Ability Good Dynamic Sitting Balance Ability Fair Standing Balance and Reactions Static Standing Balance Ability Fair Dynamic Standing Balance Ability Poor Device Used FWW M5 PT-IP Objective Assessments Start: 04/09/24 12:19 Freq: NEEDED Status: Active Protocol: Document 04/09/24 09:20 AB (Rec: 04/09/24 12:31 AB [id number]) Orientation Orientation/Cognition Level of Alertness Alert Orientation Name,Place,Situation Language Function Ability No Deficits Noted Safety Awareness Decreased Safety Awareness Memory Description No Deficits Noted Gross Range of Motion Lower Extremity ROM Assessment Within Functional Limits Strength Lower Extremity Strength Assessment Bilaterally Impaired Hip 3+/5 Knee 3+/5 Sensation Assessment Sensation Gross Sensation WNL Muscle Tone Muscle Tone WNL Yes M6 PT-IP Treatment Start: 04/09/24 12:19 Freq: NEEDED Status: Active Protocol: Document 04/09/24 09:20 AB (Rec: 04/09/24 12:31 AB [id number]) Physical Therapy Treatment Education Education Provided Precautions,Weight Bearing Status,Post-Op Packet,Safety M7 PT-IP Assessment and Plan Start: 04/09/24 12:19 Freq: NEEDED Status: Active Protocol: Document 04/09/24 09:20 AB (Rec: 04/09/24 12:31 AB [id number]) PT Summary Assessment and Plan Potential Rehabilitation Potential Fair Status of Condition at Evaluation Evolving Summary Impairments Pain,ROM,Strength,Balance, Coordination,Sensation,Tone, Cognition,Bed Mobility, Transfers,Gait,Activity Tolerance Assessment Summary pt is a 53 y/o F who presented to the ED with abdominal pain . pt with partial obstruction of small intestine but also found a have colon CA. pt underwent open R hemicolectomy POD 1. pt with abdominal precautions. pt requiring max A with log roll bed mobility, mod to max A for transfers and ambulation using FWW and presents with decrease activity tolerance. d/c plan depending on progress but at this time may require SNF rehab to improve overall strenght and functional independence. will continue to assess. Goals Bed Mobility Goal Independent Transfer Goal Independent,Front Wheeled Walker Gait Goal Independent,Front Wheel Walker Gait Distance 200 Other Goals improve transfers and ambultion without AD ~ 300 ft mod I up/down 3 platform steps using FWW/LRAD/without AD SBA Days to Meet Goals 10 Frequency of Treatment Frequency Of Treatment Once a Day Treatment Plan Physical Therapy Treatment Plan Bed Mobility Training,Transfer Training,Gait Training, Therapeutic Exercise,Balance Retraining,Post Op Education, Discharge Planning,Hot or Cold Pack,Neuromuscular Re-ed, Coordination Retraining,Manual Therapy Precautions Abdominal Surgery Precautions Log Roll,Lifting Restrictions, Gait Belt above Incisional Area Recommendations To Nursing Amount of Assist Needed 1 Person Assist Discharge Recommendations PT Discharge Recommendations Home with 16/03 Assist Available,Home Health,SNF Rehab,Home vs SNF Equipment Needed for Home Before FWW Discharge Transportation Needs at Discharge Private Vehicle,Wheelchair/ Cabulance
--- NOTE | 2024-04-09 10:57 | P.PN_ITS ---
Subjective Subjective Date Patient Seen: 04/09/24 Time Patient Seen: 11:07 Interval history: Doing well on postop day 1 following a right hemicolectomy for an obstructing mass at the ileocecal valve. Exam Vital Signs (past 8 hours): - 04/09/24 03:00 04/09/24 05:00 04/09/24 08:00 Temperature 97.8 F Pulse Rate 85 101 H Respiratory Rate 18 17 Blood Pressure 127/73 110/69 Pulse Oximetry 96 97 94 Oxygen Delivery Method Room Air Oxygen Flow Rate 0 04/09/24 10:29 04/09/24 10:29 Temperature Pulse Rate Respiratory Rate Blood Pressure Pulse Oximetry 97 Oxygen Delivery Method Room Air Room Air Oxygen Flow Rate Oxygen Delivery Method Room Air Oxygen Flow Rate 0 Const General: No acute distress Other: Abdomen is soft Dressings in place Objective Labs 04/09/24 06:24 04/09/24 06:24 Labs: Laboratory Results - last 24 hr 04/09/24 06:24 WBC 4.8 RBC 3.68 L Hgb 11.4 L Hct 33.5 L MCV 90.8 MCH 31.1 MCHC 34.2 RDW 13.4 Plt Count 172 Neut % (Auto) 82.3 H D Lymph % (Auto) 10.7 L D [place] % (Auto) 6.9 Eos % (Auto) 0.0 L Baso % (Auto) 0.1 Neut # (Auto) 4000 Lymph # (Auto) 500 L [place] # (Auto) 300 Eos # (Auto) 0 Baso # (Auto) 0 Sodium 134 L Potassium 3.9 Chloride 105 Carbon Dioxide 22 BUN 4 L Creatinine 0.63 Estimated GFR > 60 BUN/Creatinine Ratio 6.3 Glucose 88 Calcium 8.1 L Magnesium 1.1 L Total Bilirubin 0.7 AST 22 ALT 15 Alkaline Phosphatase 52 Total Protein 6.5 Albumin 3.0 L Globulin 3.5 Albumin/Globulin Ratio 0.9 L PFSH Medical History Greater trochanteric bursitis of right hip Encounter for smoking cessation counseling Somatic dysfunction of abdominal region Psoas muscle strain Greater trochanteric bursitis of right hip Dizziness Insomnia disorder, with non-sleep disorder mental comorbidity Fatigue Tobacco abuse disorder Chronic pain Lumbar spine pain Cervical spine disease Hypothyroidism Chronic back pain Depression Anxiety Surgical History Status post hysterectomy Social History marital status: details: 's name....Bipin household members: spouse lives independently: Yes occupational status: unemployed Smoking Status: Current every day smoker alcohol intake: former substance use type: does not use Assessment & Plan Assessment and plan (1) Partial obstruction of small intestine: Status: Acute Plan POD 1 following right hemicolectomy Start clear liquid diet SUZETTE terry Time-Based Coding :: [TOTAL MINUTES] spent with patient and on the chart (including review of chart, obtaining history, exam, reviewing outside data, placing orders, documenting exam and treatment plan, and counseling patient) on [DATE].
[2024-04-09] MEDS: ACETAMINOPHEN 325 MG TABLET 650 MG PO ×2 (14:00→21:23)
--- NOTE | 2024-04-09 14:38 | CM.DPC ---
DCP Cont Patient discussed in multidisciplinary rounds; patient now POD1 from right hemicolectomy after scope identified a mass in her colon. Therapy recommending home vs SNF. Met w/patient and her family to review discharge plan. Patient is confident about her return home w.spouse, says she is only POD1 today and anticipates improving functionally before discharge. CM team will plan to follow closely in case any discharge needs or concerns arise. Patient may benefit from HH referral if patient meets criteria and is agreeable. Close outpatient follow up anticipated upon discharge. JW
[2024-04-09 16:54] LABS: Magnesium 2.4 mg/dL (1.6-2.3)
[2024-04-09] MEDS: OXYCODONE IR 5 MG TABLET PO ×2 (16:55→21:22)
[2024-04-09] MEDS: GABAPENTIN 300 MG CAPSULE PO (21:21)
[2024-04-10] VITALS (8 sets, daily range): BP systolic 100–125; BP diastolic 60–73; PULSE 63–97; RESP 16–18; TEMP 36.4–37.8; O2SAT 94–99
[2024-04-10] MEDS: LACTATED RINGERS 1,000 ML 120 ML IV (05:10)
[2024-04-10] MEDS: LEVOTHYROXINE 88 MCG TABLET PO (05:10)
--- NOTE | 2024-04-10 07:30 | PM.PN.1 ---
Subjective Subjective Interval history: Interval history: 53 F recent complex history of terminal ileal thickening admitted with sbo now resolved. Erika is going to do a c-scope tomorrow to see if anything is going on in her colon / terminal ileum. She hasn't made it past clears as far as a diet yet. Colonoscopy revealed an obstructing mass at the ileocecal junction. She underwent an open right hemicolectomy on April 08. She was found to have prominent ileocolic lymph nodes. The liver appeared to be absent metastatic disease. S: She was improving, was able to eat her clear liquid breakfast. No flatus or BM. Her abdominal pain is improving, is primarily incisional. She denies any bloating. No dyspnea, she slept well. Exam Vital Signs (past 8 hours): - 04/10/24 00:00 04/10/24 04:00 Temperature 100.1 F H 98.8 F Pulse Rate 97 H 87 Respiratory Rate 18 16 Blood Pressure 110/62 103/63 Pulse Oximetry 94 95 Oxygen Flow Rate 0 0 Oxygen Delivery Method Room Air Oxygen Flow Rate 0 Narrative Exam Narrative: NAD, alert and oriented. Fluent speech. Lungs are clear, normal rate and effort. Heart is regular, no murmur gallop or rub. Abdomen is soft, non distended. Non-tender other than around incisions. Extremities are free of edema. Objective Labs 04/09/24 06:24 04/09/24 06:24 Labs: Laboratory Results - last 24 hr 04/09/24 16:32 Magnesium 2.4 H PFS Medical History Greater trochanteric bursitis of right hip Encounter for smoking cessation counseling Somatic dysfunction of abdominal region Psoas muscle strain Greater trochanteric bursitis of right hip Dizziness Insomnia disorder, with non-sleep disorder mental comorbidity Fatigue Tobacco abuse disorder Chronic pain Lumbar spine pain Cervical spine disease Hypothyroidism Chronic back pain Depression Anxiety Surgical History Status post hysterectomy Social History marital status: details: 's name....Bipin household members: spouse lives independently: Yes occupational status: unemployed Smoking Status: Current every day smoker alcohol intake: former substance use type: does not use Assessment & Plan Assessment & Plan narrative: 1. SBO, present on admission and resovled. 2. Ileocecal obstructing mass, present on admission and active. - S/P right hemicolectomy. Post-operative care. - abnormal lymph node. 3. Hypothyroidism, present on admission and stable. - held today, can restart home dosing tomorrow morning of 88 mcg. PLAN: -diet advance per surgery -pathology pending -OOB -standard postoperative care. Code: Full, surrogate is patient's spouse DVT: Lovenox daily TEA: 04/11. Home. Time-Based Coding :: 25 min spent with patient and on the chart (including review of chart, obtaining history, exam, reviewing outside data, placing orders, documenting exam and treatment plan, and counseling patient) on 04/10.
[2024-04-10] MEDS: DULOXETINE 30 MG CAPSULE 60 MG PO (08:09)
[2024-04-10] MEDS: ENOXAPARIN 40 MG/0.4 ML SYRINGE SUBCUT (08:10)
[2024-04-10] MEDS: CELECOXIB 200 MG CAPSULE PO ×2 (08:10→21:59)
--- NOTE | 2024-04-10 09:59 | PT.IPTN ---
Current Diagnoses Partial intestinal obstruction, unspecified as to cause (04/06/24) Unspecified intestinal obstruction, unspecified as to partial versus complete obstruction (04/06/24) Surgery Performed Operation Date: 04/08/24 14:00 Actual Procedures p Esophagogastroduodenoscopy - Burt James MD s Colonoscopy WITH TATTOO AND BIOPSY - Burt James MD Operation Date: 04/08/24 15:15 <No data on this case meets the specified criteria> Operation Date: 04/08/24 16:45 Actual Procedures p Laparoscopically Assisted Colectomy - Burt James MD Physical Therapy Treatment Note M2 PT-IP Current Condition Start: 04/09/24 12:19 Freq: NEEDED Status: Active Protocol: Document 04/09/24 09:20 AB (Rec: 04/09/24 12:31 AB [id number]) Physical Therapy Current Condition Current Condition Evaluation Date 04/09/24 Treatment Diagnosis s/p open R hemicolectomy; difficulty in walking Onset Date 04/06/24 M3 PT-IP Subjective Start: 04/09/24 12:19 Freq: NEEDED Status: Active Protocol: Document 04/10/24 09:36 KS (Rec: 04/10/24 12:21 KS [id number]) Subjective Physical Therapy Visit Type Type Treatment Note Visit Start Time 09:36 Visit Stop Time 09:59 Number of CIRCUS AGENT Visits 1 Physical Therapy Visit Comments Patient Comments agreeable to do PT Therapy Pain Assessment Pain When Pain Assessed During Mobility Pain Present Pain Present Pain Reported Location Upper Abdomen Scale Used not quantified Pain Behaviors Facial Grimacing,Guarding, Holding Area,Moaning Pain Management Techniques Distraction,Re-positioning M4 PT-IP Mobility and Gait Start: 04/09/24 12:19 Freq: NEEDED Status: Active Protocol: Document 04/10/24 09:36 KS (Rec: 04/10/24 12:21 KS [id number]) PT-Bed Mobility Assessment Rolling Type of Rolling Log Rolling,Roll to Left Level of Assist Minimal Assistance,1 Person Assistance Supine to Sit Supine to Sit Minimal Assistance,1 Person Assistance,Head of Bed Elevated Sit to Supine Sit to Supine Minimal Assistance,1 Person Assistance Scooting Scooting to Edge of Bed Contact Guard Assistance PT-Transfer Assessment Sit to and From Stand Sit to and from Stand Contact Guard Assistance,1 Person Assistance,Use of Upper Extremities Equipment Transfer Assistive Device Gait Belt,Front Wheeled Walker Orthotic/Prosthetic Devices or Brace: No Transfers Transfer Destination Bed Transfer Technique ambulated Transfer Ability Level of Assist Minimal Assistance,1 Person Assistance,Use of Upper Extremities Comments Mobility Comments Pt in bed upon arrival, agreeable to ambulate. C/o abdominal pain with mobility. Min A for logroll and sup<>sit . CGA to sit<>Stand w/ FWW. BP stable, denied dizziness. Pt ambulated ~230 ft w/ FWW CGA w / x standing rest break due to fatigue. Pt returned to room and expressed fatigue, requested returnt to bed. Min A for LE elevation into bed. Pt left in bed w/ all needs in reach. Gait Assessment Gait Gait Assistance Required: Contact Guard Assist,1 Person Assist Distance (Feet) 230 Able to Maintain Weight Bearing Status Yes During Gait Assistive Devices Assistive Device Gait Belt,Front Wheeled Walker Orthotic/Prosthetic Devices or Brace: No Gait Deviations General Gait Pattern Decreased Stride Length, Decreased Feet Clearance, Narrow Based Gait Factors Limiting Gait Function Factors Limiting Gait Function Decreased Activity Tolerance, Decreased Strength,Difficulty Following Directions,Limited Range of Motion,Pain,Poor Balance,Poor Safety Awareness Comments Gait Comments Slow cautious gait. PT-Balance Assessment Sitting Balance and Reactions Static Sitting Balance Ability Good Dynamic Sitting Balance Ability Good Standing Balance and Reactions Static Standing Balance Ability Good Dynamic Standing Balance Ability Fair Device Used FWW M5 PT-IP Objective Assessments Start: 04/09/24 12:19 Freq: NEEDED Status: Active Protocol: Document 04/09/24 09:20 AB (Rec: 04/09/24 12:31 AB [id number]) Orientation Orientation/Cognition Level of Alertness Alert Orientation Name,Place,Situation Language Function Ability No Deficits Noted Safety Awareness Decreased Safety Awareness Memory Description No Deficits Noted Gross Range of Motion Lower Extremity ROM Assessment Within Functional Limits Strength Lower Extremity Strength Assessment Bilaterally Impaired Hip 3+/5 Knee 3+/5 Sensation Assessment Sensation Gross Sensation WNL Muscle Tone Muscle Tone WNL Yes M6 PT-IP Treatment Start: 04/09/24 12:19 Freq: NEEDED Status: Active Protocol: Document 04/10/24 09:36 KS (Rec: 04/10/24 12:21 KS [id number]) Physical Therapy Treatment Education Education Provided Precautions,Weight Bearing Status,Post-Op Packet,Safety M7 PT-IP Assessment and Plan Start: 04/09/24 12:19 Freq: NEEDED Status: Active Protocol: Document 04/10/24 09:36 KS (Rec: 04/10/24 12:21 KS [id number]) PT Summary Assessment and Plan Potential Rehabilitation Potential Fair Summary Impairments Pain,ROM,Strength,Balance, Coordination,Sensation,Tone, Cognition,Bed Mobility, Transfers,Gait,Activity Tolerance Progress Towards Goals Progressing Toward Goals Assessment Summary Pt showing improvement w/ mobility and activity tolerance today. Min A for bed mobility and CGA for 230 ft ambulation w/ FWW w/ 1x rest break due to fatigue. Will continue to assess progress. Goals Bed Mobility Goal Independent Transfer Goal Independent,Front Wheeled Walker Gait Goal Independent,Front Wheel Walker Gait Distance 200 Other Goals improve transfers and ambultion without AD ~ 300 ft mod I up/down 3 platform steps using FWW/LRAD/without AD SBA Days to Meet Goals 10 Frequency of Treatment Frequency Of Treatment Once a Day Treatment Plan Physical Therapy Treatment Plan Bed Mobility Training,Transfer Training,Gait Training, Therapeutic Exercise,Balance Retraining,Post Op Education, Discharge Planning,Hot or Cold Pack,Neuromuscular Re-ed, Coordination Retraining,Manual Therapy Precautions Abdominal Surgery Precautions Log Roll,Lifting Restrictions, Gait Belt above Incisional Area Recommendations To Nursing Amount of Assist Needed 1 Person Assist Discharge Recommendations PT Discharge Recommendations Home with 16/03 Assist Available,Home Health,SNF Rehab,Home vs SNF Equipment Needed for Home Before FWW Discharge Transportation Needs at Discharge Private Vehicle,Wheelchair/ Cabulance
--- NOTE | 2024-04-10 10:02 | P.PN_ITS ---
Subjective Subjective Date Patient Seen: 04/10/24 Time Patient Seen: 10:02 Interval history: Doing well, tolerating clears No flatus yet Exam Vital Signs (past 8 hours): - 04/10/24 04:00 04/10/24 08:00 04/10/24 08:17 Temperature 98.8 F Pulse Rate 87 85 Respiratory Rate 16 17 Blood Pressure 103/63 100/67 Pulse Oximetry 95 95 95 Oxygen Delivery Method Room Air Oxygen Flow Rate 0 Oxygen Delivery Method Room Air Oxygen Flow Rate 0 Const General: No acute distress Resp Effort & Inspection: normal respiratory effort Objective Labs 04/09/24 06:24 04/09/24 06:24 Labs: Laboratory Results - last 24 hr 04/09/24 16:32 Magnesium 2.4 H [facility] Medical History Greater trochanteric bursitis of right hip Encounter for smoking cessation counseling Somatic dysfunction of abdominal region Psoas muscle strain Greater trochanteric bursitis of right hip Dizziness Insomnia disorder, with non-sleep disorder mental comorbidity Fatigue Tobacco abuse disorder Chronic pain Lumbar spine pain Cervical spine disease Hypothyroidism Chronic back pain Depression Anxiety Surgical History Status post hysterectomy Social History marital status: details: 's name....Bipin household members: spouse lives independently: Yes occupational status: unemployed Smoking Status: Current every day smoker alcohol intake: former substance use type: does not use Assessment & Plan Assessment and plan (1) Partial obstruction of small intestine: Status: Acute Plan Advance to regular diet once passing flatus Time-Based Coding :: [TOTAL MINUTES] spent with patient and on the chart (including review of chart, obtaining history, exam, reviewing outside data, placing orders, documenting exam and treatment plan, and counseling patient) on [DATE].
[2024-04-10] MEDS: OXYCODONE IR 5 MG TABLET PO ×2 (12:44→17:57)
--- NOTE | 2024-04-10 15:50 | CM.DPC ---
DCP COnt: Per MD, will advance pt's diet and see how he tolerates today towards possible discharge home tomorrow Mon if stable. Per PT, pt made progress and still fatigues but CGA in hallways and recommending home with assist and r/o possible HH. AQUILINO Rosales
[2024-04-10] MEDS: GABAPENTIN 300 MG CAPSULE PO (21:59)
[2024-04-11 01:46] VITALS: BP 114/71; PULSE 82; RESP 16; TEMP 36.3; O2SAT 96
[2024-04-11 04:40] VITALS: BP 111/69; PULSE 74; RESP 16; TEMP 36.1; O2SAT 97
[2024-04-11] MEDS: LEVOTHYROXINE 88 MCG TABLET PO (06:08)
[2024-04-11 08:00] VITALS: BP 108/69; PULSE 90; RESP 18; O2SAT 100
[2024-04-11] MEDS: OXYCODONE IR 5 MG TABLET PO (08:34)
[2024-04-11] MEDS: CELECOXIB 200 MG CAPSULE PO (08:34)
[2024-04-11] MEDS: ACETAMINOPHEN 325 MG TABLET 650 MG PO (08:34)
[2024-04-11] MEDS: DULOXETINE 30 MG CAPSULE 60 MG PO (08:35)
[2024-04-11] MEDS: ENOXAPARIN 40 MG/0.4 ML SYRINGE SUBCUT (08:39)
[2024-04-11 09:00] VITALS: O2SAT 100
--- NOTE | 2024-04-11 10:00 | P.DS_ITS ---
History of Present Illness History of Present Illness Chief complaint: blockage in intestines Discharge Providers Provider Date of admission: 04/06/24 05:17 Discharge Date: 04/11/24 Primary care physician: Christel Elizalde MD Consults: 04/06/24 09:50 Consult to General Surgery Routine Comment: Consulting Provider: Burt James Reason for consultation: sbo Has provider been notified: Yes 04/08/24 19:41 Consult to Physical Therapy Evaluate & Treat Comment: Physician Instructions: Evaluate and Treat Discharge provider: Joseph Chapin MD Summary Hospital Course Discharge Diagnosis: Small bowel obstruction Obstructing ileocecal mass Hospital Course: The patient underwent an open right hemicolectomy with Dr. James on 04/08/2024 for a small-bowel obstruction secondary to an obstructing ileocecal mass. See the op note for details. She recovered bowel function relatively quickly and was discharged home on postoperative day 3. Exam Vital Signs (past 8 hours): - 04/11/24 04:40 04/11/24 04:40 04/11/24 08:00 Temperature 97.0 F L Pulse Rate 74 90 Respiratory Rate 16 18 Blood Pressure 111/69 108/69 Pulse Oximetry 97 97 100 Oxygen Delivery Method Room Air Oxygen Flow Rate 0 0 Oxygen Delivery Method Room Air Oxygen Flow Rate 0 Objective Labs 04/09/24 06:24 04/09/24 06:24 [facility] Medical History Greater trochanteric bursitis of right hip Encounter for smoking cessation counseling Somatic dysfunction of abdominal region Psoas muscle strain Greater trochanteric bursitis of right hip Dizziness Insomnia disorder, with non-sleep disorder mental comorbidity Fatigue Tobacco abuse disorder Chronic pain Lumbar spine pain Cervical spine disease Hypothyroidism Chronic back pain Depression Anxiety Surgical History Status post hysterectomy Social History marital status: details: 's name....Bipin household members: spouse lives independently: Yes occupational status: unemployed Smoking Status: Current every day smoker alcohol intake: former substance use type: does not use Discharge Plan Discharge Plan Patient Disposition: Home Provider Discharge Comment: No lifting greater than 20 lb for 2 weeks. Someone from [facility] should contact you with the next 5 days to schedule a postop visit. Preston will be removed at your postop visit. Discharge orders & Medications Prescriptions: New hydrocodone-acetaminophen 5-325 mg tablet 1 tab PO Q8H PRN (Reason: pain) Qty: 10 0RF Continued gabapentin 300 mg capsule 300 mg PO BEDTIME levothyroxine 88 mcg tablet 88 mcg PO DAILY duloxetine 60 mg capsule,delayed release(DR/EC) 60 mg PO DAILY Follow up/Referrals: Christel Elizalde MD [Primary Care Provider] - Visit Report/Discharge Packet Instructions: DI for Colonoscopy, [facility]: Wound Care Stand Alone Forms: Patient Portal/API, Stroke Signs & Symptoms Discharge Data Primary Care Provider: Christel Elizalde
--- NOTE | 2024-04-11 12:02 | PC.NURSE ---
Patient is A&OX4, VSS, afebrile. She reports pain increases with activity, and reports adequate pain relief with prn hydrocodone. Patient is SBA and able to tolerate mobilizing around the room. Abdomen midline incision junior c/d/i [employer]ENT w/o drainage or redness. She tolerates about 50% of breakfast w/o n/v. MD at bedside this a.m. clearing her for discharge home today. She acknowledges site care instructions, activity limitations, medications, s/sx of infection as well as need for post op appointment in 2 weeks. She is escorted via w/ch by RN with all of her belongings to private vehicle for discharge home with her at 11 a.m. today.
== END 2024-04-11 11:00 | disposition home or self-care (01) | DRG 231 ==
LOC: ED 05:07 → AC 06:37
PROVIDERS: Internal Medicine; Surgery; Admitting Provider Internal Medicine; Emergency Provider Emergency Medicine; PCP Internal Medicine Geriatric Medicine; Referring Provider Emergency Medicine; Visit Provider Internal Medicine
PROC: 0DJ08ZZ Inspection of Upper Intestinal Tract, Via Natural or Artificial Opening Endoscopic (ICD-10-PCS; CPT 43235; principal; 2024-04-08 14:00)
PROC: 0DJD8ZZ Inspection of Lower Intestinal Tract, Via Natural or Artificial Opening Endoscopic (ICD-10-PCS; CPT 45378; 2024-04-08 14:00)
PROC: 0DTE0ZZ Resection of Large Intestine, Open Approach (ICD-10-PCS; principal; 2024-04-08 16:45)
DX: K56.690 Other partial intestinal obstruction (principal); E43 Unspecified severe protein-calorie malnutrition; E03.9 Hypothyroidism, unspecified; F32.A Depression, unspecified; K63.89 Other specified diseases of intestine; F17.210 Nicotine dependence, cigarettes, uncomplicated; Z68.21 Body mass index [BMI] 21.0-21.9, adult
CPT/HCPCS: 36415; 43235; 44160; 45381; 45385; 74018; 74177; 80053; 81003; 83690; 83735; 85025; 96374; 97116; 97162; 97530; 99222; 99284; 99285; J1100; J1170; J1650; J1956; J2250; J2405; J2704; J3010; J3410; J3475; Q9967

== ENCOUNTER → 2024-08-18 10:01 | Outpatient (CLI) | payer OTHER, SELFPAY ==
[2024-04-06 05:54] VITALS: BMI 21.2
--- NOTE | 2024-08-18 10:02 | DI.MG.S_ITS ---
BILATERAL DIGITAL SCREENING MAMMOGRAM 3D/2D WITH CAD: 08/18/2024 CLINICAL: Routine screening. Comparison is made to exam dated: 08/07/2020 mammogram - [facility]. There are scattered areas of fibroglandular density (category b / 25%-50% glandular tissue). Current study was also evaluated with a Computer Aided Detection (CAD) system. There is a possible developing round equal density asymmetry with an indistinct margin in the left breast at 12 o'clock middle depth. No other significant masses, calcifications, or other findings are seen in either breast. IMPRESSION: INCOMPLETE: NEED ADDITIONAL IMAGING EVALUATION The possible developing round equal density asymmetry in the left breast is indeterminate. Additional views with possible ultrasound are recommended. Based on the Tyrer Cuzick model (a risk assessment model) the patient's lifetime risk is 5.9% and her 10 year risk is 1.7%. According to the ACR, ACS, and NCCN guidelines, an annual breast MRI exam along with mammogram is recommended if the patient's lifetime risk is 20% or greater. This exam was interpreted at Station ID: [id number]. NOTE: For mammograms, a report in lay terms will be sent to the patient. Approximately 15% of breast malignancies will not be visualized mammographically. In the management of a palpable breast mass, a negative mammogram must not discourage biopsy of a clinically suspicious lesion. Electronically Signed By: Wendy willams/lizzy:08/18/2024 15:52:53 letter sent: Additional Imaging Needed ACR BI-RADS Category 0: Incomplete: Need Additional Imaging Evaluation
== END ==
PROVIDERS: PCP Family Medicine; Referring Provider Family Medicine; Visit Provider Family Medicine
DX: Z12.31 Encounter for screening mammogram for malignant neoplasm of breast (principal)
CPT/HCPCS: 77063; 77067

== ENCOUNTER 2024-10-09 13:13 | Emergency (ER) | payer OTHER, SELFPAY ==
[2024-04-06 05:54] VITALS: BMI 21.2
[2024-10-09] VITALS (8 sets, daily range): BP systolic 121–134; BP diastolic 70–82; PULSE 66–83; RESP 16; TEMP 37.4; O2SAT 98–100; BMI 22.6
--- NOTE | 2024-10-09 13:31 | EKG_ITS ---
[place] [id number] [place] [id number] Test Date: 2024-10-09 Pat Name: Alisha Hahn Department: [facility] Room: Gender: Female Healthcare Architect: KJ : 1970 Requested By: Order Number: [id number] Reading MD: Kvng Ibarra Measurements Intervals [place] Rate: 74 P: 41 NH: 134 QRS: 43 QRSD: 86 T: 58 QT: 384 QTc: 426 Interpretive Statements Normal sinus rhythm Possible Left atrial enlargement Electronically Signed On 10-10-2024 8:23:13 PST by Kvng Ibarra
--- NOTE | 2024-10-09 13:44 | DI.CT.S_ITS ---
PROCEDURE: CT ABDOMEN PELVIS W CON INDICATIONS: lower abd pain, hx of colon cancer TECHNIQUE: After the administration of intravenous contrast, axial sections acquired from the lung bases to the pubic symphysis. Coronal and sagittal reformats were performed. For radiation dose reduction, the following was used: automated exposure control, adjustment of mA and/or kV according to patient size. COMPARISON: [facility], CT, CT ABDOMEN PELVIS W CON, 02/07/2024, 16:52. [facility], CT, CT ABDOMEN PELVIS W CON, 03/23/2024, 1:49. [facility], CT, CT ABDOMEN PELVIS W CON, 04/06/2024, 4:01. (Additional prior imaging is not available for review from the archive at the time of this dictation.) FINDINGS: Image quality: Diagnostic. Lower Chest: A small hiatal hernia is incidentally noted. ABDOMEN: Liver: Within the right posterior liver, there is a focus of increased enhancement, as on series 2, image 33. This is similar to the priors. The liver is prominent size. Gallbladder: No radiopaque gallstones or wall thickening. Biliary ducts: No biliary dilation. Pancreas: No ductal dilation. Spleen: Size is within normal limits. Adrenal Glands: No adrenal nodules. Kidneys and Ureters: No hydronephrosis. No solid mass. No complex renal cystic lesion which requires follow up. Stomach and Bowel: Normal colonic caliber, without significant wall thickening. Proximal colon anastomotic staple lines are seen the proximal colon it has migrated and is seen within the left mid abdomen. No findings of local recurrence can be seen. No dilated loops of small bowel are seen. Peritoneum: No abnormal intraperitoneal fluid. No free air. Ventral Wall: No significant ventral hernia. Abdominal Nodes: No retroperitoneal or mesenteric adenopathy by size criteria. Vessels: Aorta and inferior vena cava are normal in size. PELVIS: Pelvic Organs: No adnexal masses are seen on either side. Bladder: No bladder wall thickening, accounting for underdistention. Pelvic Nodes: No enlarged lymph nodes. Miscellaneous: No inguinal hernias are seen. Bones: No aggressive osseous abnormality. Mild dextroconvex scoliotic curvature is seen. Age-appropriate bony degenerative changes are seen, particularly involving the lumbar spine. IMPRESSION: No acute abnormality is seen to explain lower abdominal pain. No recurrent small-bowel obstruction. Prior postoperative change of the proximal colon, with anastomotic staple lines. No js local recurrence can be seen. Within the right liver, there is a focus of increased enhancement. This is similar to the available priors and is felt most likely to be related to a benign perfusion abnormality. Differential diagnosis includes metastatic disease in this patient with this given history, although this is considered to be less likely. Additional findings: Small hiatal hernia Hepatomegaly Mild dextroconvex scoliotic curvature is seen. Dictated by: Sanjay Levine M.D. on 10/09/2024 at 13:09 Approved by: Sanjay Levine M.D. on 10/09/2024 at 13:16
[2024-10-09 13:47] LABS: Add Manual Diff / Slide Review NO; Basophils Absolute Auto 0 /uL (0-100); Eosinophils Absolute Auto 200 /uL (0-450); Eosinophils Percent Auto 4.6 % (2-4); Hematocrit 36.2 % (36-46); Hemoglobin 12.2 g/dL (12.0-16.0); Lymphocytes Absolute Auto 1300 /uL (1100-4500); Lymphocytes Percent Auto 28.2 % (25-40); Mean Corpuscular HGB Conc 33.7 % (30-36); Monocytes Absolute Auto 600 /uL (0-900); Monocytes Percent Auto 12.2 % (3-14); Neutrophils Absolute Auto 2500 /uL (1500-7000); Platelet Count 231 X10^3/uL (150-400); Red Blood Cell Count 3.93 X10^6/uL (4.0-5.2); Red Cell Distribution Width 13.8 % (11.6-14.8); White Blood Cell Count 4.7 X10^3/uL (4.5-11.0)
[2024-10-09 13:57] LABS: Alanine Aminotransferase 18 IU/L (<35); Albumin 4.3 g/dL (3.5-5.0); Albumin Globulin Ratio 0.9 (1.0-2.8); Alkaline Phosphatase 75 U/L (38-126); Aspartate Aminotransferase 32 IU/L (14-36); BUN Creatinine Ratio 15.4 (6-22); Bilirubin Total 0.7 mg/dL (0.2-1.3); Blood Urea Nitrogen 12 mg/dL (7-17); Calcium 8.7 mg/dL (8.4-10.2); Carbon Dioxide 21 mmol/L (22-32); Chloride 104 mmol/L (98-107); Estimated Glomerular Filt Rate > 60 mL/min (>60); Glucose 109 mg/dL (70-100); HEMOLYSIS 34 (0-50); Lipase 45 U/L (23-300); Potassium 4.3 mmol/L (3.4-5.1); Sodium 134 mmol/L (137-145); Total Protein 9.3 g/dL (6.3-8.2)
--- NOTE | 2024-10-09 15:12 | ED.ABDPAIN ---
HPI - Abdominal Pain General Chief Complaint: Abdominal Pain Stated Complaint: Abd Pain Time Seen by Provider: 10/09/24 15:11 Source: patient Mode of arrival: Ambulatory History of Present Illness HPI narrative: Patient is a 54-year-old female history of colon cancer with colectomy back in March of 2024. Reports that she did not undergo chemo or radiation though it was recommended to her. She has been feeling okay until October 04. She says it that time she was woken up from her sleep and has pretty significant pain. She is eating and drinking normal however she has very thin stools. She has no bloody stool. She really has not followed up for her cancer since the surgery. No chest pain no passing out no other symptoms. Related Data Home Medications Medication Instructions Recorded Confirmed naproxen 220 mg-diphenhydramine 25 1 tab PO BEDTIME 09/14/24 09/14/24 mg tablet (Aleve PM) Previous Rx's Medication Instructions Recorded duloxetine 30 mg capsule,delayed 30 mg PO DAILY #30 caps 09/14/24 release duloxetine 60 mg capsule,delayed 60 mg PO DAILY #90 caps 09/16/24 release gabapentin 300 mg capsule 300 mg PO BEDTIME #90 caps 09/16/24 levothyroxine 88 mcg tablet 88 mcg PO DAILY #90 tabs 09/16/24 Allergies Allergy/AdvReac Type Severity Reaction Status Date / Time codeine [CODEINE] Allergy Severe ANAPHYLAXIS Verified 07/19/24 14:40 Penicillins [PENICILLINS] Allergy Severe ANAPHYLAXIS Verified 07/19/24 14:40 shellfish derived Allergy Severe CRAB, Verified 07/19/24 14:40 [SHELLFISH DERIVED] SWELLING AIRWAIR CLOSED latex [LATEX] Allergy Mild rash Verified 07/19/24 14:40 Patient History Medical History Tobacco use disorder PEGGY (generalized anxiety disorder) MDD (major depressive disorder), recurrent episode, moderate Partial obstruction of small intestine (~03/2024) Greater trochanteric bursitis of right hip Greater trochanteric bursitis of right hip Insomnia disorder, with non-sleep disorder mental comorbidity Tobacco abuse disorder Chronic pain Lumbar spine pain Cervical spine disease Hypothyroidism Chronic back pain Depression Anxiety Surgical History Status post hysterectomy Social History marital status: details: 's name....Bipin household members: spouse lives independently: Yes occupational status: unemployed Smoking Status: Current every day smoker Tobacco: How many years used: 39 quit status: considering quitting second hand exposure: No (smokes outside ) alcohol intake: former (Quit October 2023 ) substance use type: does not use Smoking Status: Current every day smoker tobacco type: cigarettes alcohol intake frequency: 0-2 drinks per day Exam Initial Vital Signs Initial Vital Signs: Vital Signs Temperature 99.4 F 10/09/24 13:26 Pulse Rate 83 10/09/24 13:26 Respiratory Rate 16 10/09/24 13:26 Blood Pressure 130/70 10/09/24 13:26 Pulse Oximetry 98 10/09/24 13:26 Oxygen Delivery Method Room Air 10/09/24 13:26 GENERAL: Alert well-appearing 54-year-old female and in no acute distress. HEENT: Head atraumatic,EOMI, pupils reactive, face symmetric, moist mucous membranes CARDIOVASCULAR: Regular rate and rhythm without murmurs, rubs or gallops. RESPIRATORY: Breath sounds equal bilaterally, no wheezes rales or rhonchi. ABDOMEN: Soft, slightly bloated increased bowel sounds mildly diffusely tender no guarding rebound EXTREMITIES: Normal range of motion, no clubbing or edema. Neurovascularly intact NEUROLOGICAL: Alert and oriented x4.Normal gait and speech. Cranial nerves II through XII grossly intact. SKIN: Warm, dry, no laceration, no petechiae, no rashes or lesions. Course Orders Ordered: ED Orders 10/09/24 13:31 EKG-12 Lead Stat 10/09/24 13:35 CEA [Carcinoembryonic Antigen] Stat Complete Blood Count AUTO DIFF Stat Comprehensive Metabolic Panel Stat Lipase Stat 10/09/24 13:44 CT abdomen pelvis w con Stat Discontinued Medications Ondansetron HCl (Ondansetron 4 Mg/2 Ml Inj) 4 mg IV NOW PRN PRN Reason: Nausea And Vomiting Ondansetron HCl (Ondansetron 4 Mg Odt) 4 mg PO NOW PRN PRN Reason: Nausea And Vomiting Vital Signs Vital signs: Vital Signs - 8 hr 10/09/24 13:26 10/09/24 13:34 10/09/24 13:49 Temperature 99.4 F Pulse Rate 83 81 75 Respiratory Rate 16 Blood Pressure 130/70 Pulse Oximetry 98 99 98 Oxygen Delivery Method Room Air 10/09/24 13:49 10/09/24 14:00 10/09/24 14:13 Temperature Pulse Rate 78 72 Respiratory Rate Blood Pressure 134/79 Pulse Oximetry 98 100 Oxygen Delivery Method 10/09/24 14:13 10/09/24 14:30 10/09/24 14:30 Temperature Pulse Rate 72 Respiratory Rate Blood Pressure 126/77 130/72 Pulse Oximetry 100 Oxygen Delivery Method 10/09/24 15:00 10/09/24 15:00 10/09/24 15:30 Temperature Pulse Rate 66 73 Respiratory Rate Blood Pressure 124/71 Pulse Oximetry 100 98 Oxygen Delivery Method Room Air 10/09/24 15:30 Temperature Pulse Rate Respiratory Rate Blood Pressure 121/82 Pulse Oximetry Oxygen Delivery Method MDM - Abdominal Pain Lab Data 10/09/24 13:35 10/09/24 13:35 Labs: Lab Results 10/09/24 Range/Units 13:35 WBC 4.7 (4.5-11.0) X10^3/uL RBC 3.93 L (4.0-5.2) X10^6/uL Hgb 12.2 (12.0-16.0) g/dL Hct 36.2 (36-46) % MCV 92.0 (80-100) fL MCH 31.0 (26-34) PG MCHC 33.7 (30-36) % RDW 13.8 (11.6-14.8) % Plt Count 231 (150-400) X10^3/uL Neut % (Auto) 54.0 (50-75) % Lymph % (Auto) 28.2 (25-40) % Mclennan % (Auto) 12.2 (3-14) % Eos % (Auto) 4.6 H (2-4) % Baso % (Auto) 1.0 (0-2) % Neut # (Auto) 2500 (0888-8443) /uL Lymph # (Auto) 1300 (8894-6486) /uL Mclennan # (Auto) 600 (0-900) /uL Eos # (Auto) 200 (0-450) /uL Baso # (Auto) 0 (0-100) /uL Sodium 134 L (137-145) mmol/L Potassium 4.3 (3.4-5.1) mmol/L Chloride 104 (98-107) mmol/L Carbon Dioxide 21 L (22-32) mmol/L BUN 12 (7-17) mg/dL Creatinine 0.78 (0.52-1.04) mg/dL Estimated GFR > 60 (>60) mL/min BUN/Creatinine Ratio 15.4 (6-22) Glucose 109 H (70-100) mg/dL Calcium 8.7 (8.4-10.2) mg/dL Total Bilirubin 0.7 (0.2-1.3) mg/dL AST 32 (14-36) IU/L ALT 18 (<35) IU/L Alkaline Phosphatase 75 (38-126) U/L Total Protein 9.3 H (6.3-8.2) g/dL Albumin 4.3 (3.5-5.0) g/dL Globulin 5.0 H (1.7-4.1) g/dL Albumin/Globulin Ratio 0.9 L (1.0-2.8) Lipase 45 (23-300) U/L Carcinoembryonic Ag 2.3 (0.1-3.0) ng/mL Point of care testing: Urine Dip Bedside Urine Glucose Negative Bedside Urine Bilirubin - Negative Bedside Urine Ketone - Negative Urine Specific [place] 1.005 Bedside Urine Occult Blood - Negative Bedside Urine pH 6.0 Bedside Urine Protein - Negative Bedside Urine Urobilinogen - Negative Bedside Urine Nitrite - Negative Bedside Urine Leukocytes - Negative Esterase Imaging Data CT scan - abdomen/pelvis: Radiologist's Impression: PROCEDURE: CT ABDOMEN PELVIS W CON INDICATIONS: lower abd pain, hx of colon cancer TECHNIQUE: After the administration of intravenous contrast, axial sections acquired from the lung bases to the pubic symphysis. Coronal and sagittal reformats were performed. For radiation dose reduction, the following was used: automated exposure control, adjustment of mA and/or kV according to patient size. COMPARISON: [facility], CT, CT ABDOMEN PELVIS W CON, 02/07/2024, 16:52. [facility], CT, CT ABDOMEN PELVIS W CON, 03/23/2024, 1:49. [facility], CT, CT ABDOMEN PELVIS W CON, 04/06/2024, 4:01. (Additional prior imaging is not available for review from the archive at the time of this dictation.) FINDINGS: Image quality: Diagnostic. Lower Chest: A small hiatal hernia is incidentally noted. ABDOMEN: Liver: Within the right posterior liver, there is a focus of increased enhancement, as on series 2, image 33. This is similar to the priors. The liver is prominent size. Gallbladder: No radiopaque gallstones or wall thickening. Biliary ducts: No biliary dilation. Pancreas: No ductal dilation. Spleen: Size is within normal limits. Adrenal Glands: No adrenal nodules. Kidneys and Ureters: No hydronephrosis. No solid mass. No complex renal cystic lesion which requires follow up. Stomach and Bowel: Normal colonic caliber, without significant wall thickening. Proximal colon anastomotic staple lines are seen the proximal colon it has migrated and is seen within the left mid abdomen. No findings of local recurrence can be seen. No dilated loops of small bowel are seen. Peritoneum: No abnormal intraperitoneal fluid. No free air. Ventral Wall: No significant ventral hernia. Abdominal Nodes: No retroperitoneal or mesenteric adenopathy by size criteria. Vessels: Aorta and inferior vena cava are normal in size. PELVIS: Pelvic Organs: No adnexal masses are seen on either side. Bladder: No bladder wall thickening, accounting for underdistention. Pelvic Nodes: No enlarged lymph nodes. Miscellaneous: No inguinal hernias are seen. Bones: No aggressive osseous abnormality. Mild dextroconvex scoliotic curvature is seen. Age-appropriate bony degenerative changes are seen, particularly involving the lumbar spine. IMPRESSION: No acute abnormality is seen to explain lower abdominal pain. No recurrent small-bowel obstruction. Prior postoperative change of the proximal colon, with anastomotic staple lines. No js local recurrence can be seen. Within the right liver, there is a focus of increased enhancement. This is similar to the available priors and is felt most likely to be related to a benign perfusion abnormality. Differential diagnosis includes metastatic disease in this patient with this given history, although this is considered to be less likely. Additional findings: Small hiatal hernia Hepatomegaly Mild dextroconvex scoliotic curvature is seen. Dictated by: Sanjay Levine M.D. on 10/09/2024 at 13:09 Approved by: Sanjay Levine M.D. on 10/09/2024 at 13:16 ECG Data Attestation: I personally reviewed and interpreted this ECG as follows: Interpretation: Sinus rhythm rate 74 OR interval 134 QRS [address] changes or T-wave inversion MDM Narrative Medical decision making narrative: Patient 54-year-old female presenting today with abdominal pain. She has been eating and drinking. Abdomen is slightly bloated mildly tender. She was offered pain medication but declined. Blood work has been reviewed overall reassuring no leukocytosis no anemia no electrolyte abnormality or BAYRON. EKGs reviewed no acute ischemia CT abdomen pelvis no new masses no obstruction there is area within the liver which has enhancement but it is similar to prior. CEA 2.3 She has an upcoming appointment with her primary care provider about 2 weeks. I recommend that she follow up with General surgery and have a repeat colonoscopy. At this time recommend that she take some MiraLax. She does not really have any evidence of colitis Discharge Plan Departure Patient Disposition: Home Clinical Impression: Abdominal pain Instructions: DI for Abdominal Pain-Adult Activity Restrictions/Additional Instructions: *You have been diagnosed with abdominal pain *What to do: At this time I do recommend that you take MiraLax once a day for the next couple days to see if that helps. You may need a repeat colonoscopy. Your CT scan does not show any kind of obstruction. Your blood work today is overall reassuring. CEA is pending--this is the colon cancer marker *Continue to take medications as directed Tylenol or Motrin as needed for pain *Follow up with your primary care provider in 2-3 days or call [phone] I do recommend that you follow-up with [facility] for possible repeat colonoscopy *Return to ER if you should have increasing pain vomiting bloody [or] any new, worsening or concerning symptoms Prescriptions: No Action Aleve PM 220-25 mg tablet 1 tab PO BEDTIME duloxetine 30 mg capsule,delayed release(DR/EC) 30 mg PO DAILY Qty: 30 3RF Rx Instructions: Take with 60mg capsule every morning for 90mg total duloxetine 60 mg capsule,delayed release(DR/EC) 60 mg PO DAILY Qty: 90 0RF gabapentin 300 mg capsule 300 mg PO BEDTIME Qty: 90 0RF levothyroxine 88 mcg tablet 88 mcg PO DAILY Qty: 90 0RF Referrals: Yaima Parmar DO [Primary Care Provider] - Stand Alone Forms: Patient Portal/API/Survey
[2024-10-09 16:08] LABS: Carcinoembryonic Antigen 2.3 ng/mL (0.1-3.0)
== END 2024-10-09 16:00 | disposition home or self-care (01) ==
PROVIDERS: Emergency Provider Emergency Medicine; PCP Family Medicine
DX: R10.9 Unspecified abdominal pain (principal); F17.210 Nicotine dependence, cigarettes, uncomplicated; Z85.038 Personal history of other malignant neoplasm of large intestine; Z90.49 Acquired absence of other specified parts of digestive tract
CPT/HCPCS: 36415; 74177; 80053; 81003; 82378; 83690; 85025; 93005; 99283; 99284; Q9967

== ENCOUNTER → 2024-10-28 08:34 | Outpatient (CLI) | payer OTHER, SELFPAY ==
[2024-04-06 05:54] VITALS: BMI 21.2
--- NOTE | 2024-10-28 08:36 | DI.MG.S_ITS ---
MM diagnostic mammo unilat LT: 10/28/2024. BI-RADS: 1 CLINICAL: 54-year old female for left diagnostic mammogram that is a recall from screening, bilateral, digital, tomosynthesis, w/mammo cad on 08/18/2024. Tyrer-Cuzick lifetime risk of 3.6%. No personal or first-degree family history of breast cancer. PRIOR EXAMS 08/18/2024, 08/07/2020. MAMMOGRAPHY TECHNIQUE: 2D and 3D (tomosynthesis) digital mammographic views obtained, with additional images as needed for full coverage. Current study was also evaluated with a Computer Aided Detection (CAD) system. DENSITY Left: B. There are scattered areas of fibroglandular density. MAMMOGRAPHY FINDINGS Left: There is no suspicious mammographic finding to account for imaging concern on mammography. Imaging concern is explained by benign-appearing tissue. Imaging concern has resolved on diagnostic views. No suspicious mass, asymmetry, microcalcification, or other abnormality seen. IMPRESSION: Left * No evidence of malignancy. RECOMMENDATIONS Bilateral * Annual screening mammography. OVERALL ASSESSMENT CATEGORY BI-RADS-1: Negative. The [employer] recommends annual screening mammography beginning at age 40 for women with average risk of breast cancer. ELECTRONICALLY SIGNED: Carmelo Crowder M.D. on 10/28/2024 at 09:42:55 AM PT Interpreting Station ID: [id number]
== END ==
LOC: MAMMO 08:35
PROVIDERS: PCP Family Medicine; Referring Provider Family Medicine; Visit Provider Family Medicine
DX: R92.8 Other abnormal and inconclusive findings on diagnostic imaging of breast (principal)
CPT/HCPCS: 77065; G0279

== ENCOUNTER 2025-02-18 15:23 | Emergency (ER) | payer OTHER, SELFPAY ==
[2024-04-06 05:54] VITALS: BMI 21.2
[2025-02-18 15:35] VITALS: BP 149/93; PULSE 120; RESP 18; TEMP 36.9; O2SAT 97; BMI 27.1
[2025-02-18] MEDS: OXYCODONE/ACETAMINOPHEN 5/325 TABLET 1 TAB PO (15:45)
[2025-02-18] MEDS: BACITRACIN OINT 0.9 GM PCKT 5 APPLIC TOP (15:46)
[2025-02-18] MEDS: IBUPROFEN 400 MG TABLET PO (15:46)
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
[2025-02-18] MEDS: DOXYCYCLINE HYCLATE 100 MG TABLET PO (19:05)
[2025-02-18] MEDS: CLINDAMYCIN 150 MG CAPSULE 300 MG PO (19:05)
[2025-02-18] MEDS: TET,DIPH,PERTUSS(ACELL),VAC/PF 0.5 ML SYRINGE IM (19:06)
[2025-02-18] MEDS: OXYCODONE/APAP 5/325 PREPACK 1 BOTTLE MISC (19:07)
--- NOTE | 2025-02-18 19:24 | PC.NURSE ---
Dog bites on bilateral arms cleaned; MD Nath stated no stitches but to apply steristrips to wound on crease of right arm. Steristrips applied and wounds dressed.
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
[2025-02-18 19:32] VITALS: BP 146/83; PULSE 76; RESP 16; TEMP 36.6; O2SAT 98
== END 2025-02-18 19:32 | disposition home or self-care (01) ==
PROVIDERS: Emergency Provider Emergency Medicine; PCP Family Medicine
DX: S41.152A Open bite of left upper arm, initial encounter (principal); S41.151A Open bite of right upper arm, initial encounter; W54.0XXA Bitten by dog, initial encounter; Y93.89 Activity, other specified; Z23 Encounter for immunization
CPT/HCPCS: 90471; 99283; 99284; 90715

== ENCOUNTER 2025-04-30 14:10 | Emergency (ER) | payer OTHER, SELFPAY ==
[2024-04-06 05:54] VITALS: BMI 21.2
[2025-04-30 14:14] VITALS: BP 188/94; PULSE 87; RESP 18; TEMP 36.7; O2SAT 100; BMI 27.1
--- NOTE | 2025-04-30 14:19 | EKG_ITS ---
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
--- NOTE | 2025-04-30 14:20 | DI.RAD.S_ITS ---
PROCEDURE: XR CHEST 1V INDICATIONS: Possible stroke TECHNIQUE: One view of the chest was acquired. COMPARISON: [facility], CT, CT ANGIO HEAD AND NECK, 04/30/2025, 14:28. [facility], CT, CT HEAD/BRAIN WO CON, 04/30/2025, 14:28. [facility], CR, XR CHEST 1V, 10/01/2022, 11:51. FINDINGS: Surgical changes and devices: None. Lungs and pleura: Mild generalized interstitial prominence can be seen. No pleural effusions or pneumothorax. Mediastinum: Mediastinal contours appear normal. Heart size is normal. Bones and chest wall: No suspicious bony lesions. Overlying soft tissues appear unremarkable. IMPRESSION: Mild generalized pulmonary interstitial prominence can be seen. Please consider pulmonary edema versus artifact. Dictated by: Sanjay Levine M.D. on 04/30/2025 at 13:38 Approved by: Sanjay Levine M.D. on 04/30/2025 at 13:39
--- NOTE | 2025-04-30 14:21 | DI.CT.S_ITS ---
PROCEDURE: CT ANGIO HEAD AND NECK INDICATIONS: Sudden change in vision, headache TECHNIQUE: After the administration of intravenous contrast, 1 mm thick sections acquired from the aortic arch through the [place] of [place]. 3-dimensional pqsrvnc-xjuneemey-zfqfcvrcra (MIP) and/or volume rendering reformats were acquired of the central intracranial vasculature and neck separately. For radiation dose reduction, the following was used: automated exposure control, adjustment of mA and/or kV according to patient size. COMPARISON: [facility], CT, CT HEAD/BRAIN WO CON, 05/06/2021, 10:29. [facility] With [facility], CR, XR CHEST 1V, 04/30/2025, 14:19. [facility]erged With [facility], CT, CT HEAD/BRAIN WO CON, 04/30/2025, 14:28. FINDINGS: Image quality: Diagnostic. Cerebral CT Angiogram: Internal carotid arteries: No acute findings. Intracranial ICA are patent with no significant stenosis. No occlusion. No aneurysm. Anterior cerebral arteries: There is a hypoplastic left A1 segment, with a corresponding robust right A1 segment. This is considered to be a normal developmental variant of the [place], of typically no clinical consequence. There is an early bifurcation of the left A1 segment. The flow within the paired anterior cerebral arteries is otherwise normal and symmetric. The flow within the middle cerebral arteries is normal and symmetric. The anterior communicating artery is seen. No aneurysms are seen. Middle cerebral arteries: Unremarkable. No significant stenosis. No occlusion. No aneurysm. Posterior cerebral arteries: Unremarkable. No significant stenosis. No occlusion. No aneurysm. Basilar artery: Unremarkable. No significant stenosis. No occlusion. No aneurysm. Vertebral arteries: Unremarkable as visualized. Dural venous sinuses: Unremarkable given phase of enhancement. Other: Arterial phase appearance of the brain parenchyma is unremarkable. Neck CT Angiogram: Internal carotid arteries: Unremarkable. No significant stenosis. No dissection or occlusion. Common carotid arteries: Unremarkable. No significant stenosis. No dissection or occlusion. External carotid arteries: Unremarkable. No occlusion. Vertebral arteries: Unremarkable. No significant stenosis. No dissection or occlusion. Aortic Arch and Mediastinum: Partially visualized aortic arch unremarkable without evidence of aneurysm. Origins of the great vessels unremarkable. Other: Arterial phase soft tissues of the neck and chest are unremarkable. At least moderate cervical spine degenerative change can be seen. IMPRESSION: No imaging explanation is found for this patient's presenting symptoms. No significant intracranial arterial abnormality is seen. No significant abnormality is seen within the arteries of the neck. Additional findings: Xpjzjp-en-Oaxhvl developmental anomalies. At least moderate cervical spine degenerative change Any quantitative measurements of stenosis were performed using NASCET criteria. Dictated by: Sanjay Levine M.D. on 04/30/2025 at 13:43 Approved by: Sanjay Levine M.D. on 04/30/2025 at 13:44
--- NOTE | 2025-04-30 14:21 | DI.CT.S_ITS ---
PROCEDURE: CT HEAD/BRAIN WO CON INDICATIONS: Sudden change in vision, headache TECHNIQUE: Noncontrast 4.5 mm thick angled axial sections acquired from the foramen magnum to the vertex, with coronal and sagittal reformats. For radiation dose reduction, the following was used: automated exposure control, adjustment of mA and/or kV according to patient size. COMPARISON: [facility], CT, CT ANGIO HEAD AND NECK, 04/30/2025, 14:28. [facility], CR, XR CHEST 1V, 04/30/2025, 14:19. [facility], CT, CT HEAD/BRAIN WO CON, 05/06/2021, 10:29. (Additional prior imaging is not available for review from the archive at the time of this dictation.) FINDINGS: Image quality: Diagnostic. CSF spaces: Basal cisterns are patent. No extra-axial fluid collections. Ventricles are normal in size and shape. Brain: No midline shift. No intracranial mass effect or hemorrhage. Smith- white matter interface is normal. Skull and face: Calvarium and visualized facial bones are intact, without suspicious lesions. Sinuses: Visualized sinuses and mastoids are clear. IMPRESSION: No imaging explanation is found for this patient's presenting symptoms. No acute intracranial hemorrhage is seen. To the limits of this noncontrast study, no findings of intracranial masses or mass effect can be seen. If there is strong clinical suspicion for an acute stroke, please consider a brain MRI for further evaluation, as it is more sensitive (assuming that there is no contraindication to MRI). Dictated by: Sanjay Levine M.D. on 04/30/2025 at 13:39 Approved by: Sanjay Levine M.D. on 04/30/2025 at 13:42
[2025-04-30] MEDS: PROPARACAINE 0.5% OPHTH SOL 1 DROPS EYE-RIGHT (14:34)
[2025-04-30] MEDS: FLUORESCEIN 1 MG STRIP EYE-RIGHT (14:35)
[2025-04-30 14:38] LABS: INR 1.1 (0.9-1.3); Prothrombin Time 12.5 SECONDS (9.4-12.5)
[2025-04-30 14:40] LABS: PTT Partial Thromboplastin Tim 31 SECONDS (25.1-36.5)
[2025-04-30 14:43] LABS: Add Manual Diff / Slide Review NO; Alanine Aminotransferase 18 IU/L (<35); Albumin 4.3 g/dL (3.5-5.0); Albumin Globulin Ratio 0.8 (1.0-2.8); Alkaline Phosphatase 100 U/L (38-126); Blood Urea Nitrogen 15 mg/dL (7-17); Calcium 9.0 mg/dL (8.4-10.2); Carbon Dioxide 24 mmol/L (22-32); Chloride 103 mmol/L (98-107); Creatine Kinase 175 U/L (30-135); Estimated Glomerular Filt Rate > 60 mL/min (>60); Globulin 5.7 g/dL (1.7-4.1); Glucose 94 mg/dL (70-99); HEMOLYSIS < 15 (0-50); Hematocrit 38.8 % (36-46); Hemoglobin 13.6 g/dL (12.0-16.0); Lymphocytes Absolute Auto 1500 /uL (1100-4500); Mean Corpuscular HGB Conc 35.0 % (30-36); Mean Corpuscular Hemoglobin 32.3 PG (26-34); Mean Corpuscular Volume 92.3 fL (80-100); Platelet Count 234 X10^3/uL (150-400); Potassium 4.0 mmol/L (3.4-5.1); Sodium 137 mmol/L (137-145); Total Protein 10.0 g/dL (6.3-8.2)
[2025-04-30 14:55] LABS: Troponin I < 0.012 ng/mL (0.01-0.034)
[2025-04-30 15:00] VITALS: BP 163/82; PULSE 80; RESP 16; O2SAT 99
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
[2025-04-30 15:30] VITALS: BP 142/82; PULSE 77; RESP 16; O2SAT 99
[2025-04-30 16:00] VITALS: BP 138/78; PULSE 76; RESP 16; O2SAT 98
[2025-04-30 16:30] VITALS: BP 133/82; PULSE 81; RESP 18; O2SAT 98
[2025-04-30 18:49] VITALS: BP 128/80; PULSE 79; RESP 20; TEMP 37; O2SAT 100
== END 2025-04-30 18:51 | disposition home or self-care (01) ==
PROVIDERS: Emergency Provider Emergency Medicine; PCP Family Medicine
DX: H53.9 Unspecified visual disturbance (principal); R20.0 Anesthesia of skin; R51.9 Headache, unspecified; R29.701 NIHSS score 1
CPT/HCPCS: 36415; 70450; 70496; 70498; 71045; 80053; 81003; 82550; 84484; 85025; 85610; 85730; 93005; 99283; 99284; Q9967

== ENCOUNTER → 2025-06-16 07:38 | Outpatient (CLI) | payer OTHER, SELFPAY ==
[2024-04-06 05:54] VITALS: BMI 21.2
[2025-06-16 08:40] LABS: Cholesterol 175 mg/dL (140-199); HDL Cholesterol 48 mg/dL (40-60); Triglycerides 126 mg/dL (35-150)
[2025-06-16 09:00] LABS: TSH w/ Reflex to FT4 1.36 uIU/mL (0.47-4.68)
[2025-06-17 03:11] LABS: CRP, High Sensitivity 5.59 mg/L (0.00-3.00)
== END ==
PROVIDERS: PCP Family Medicine; Referring Provider Family Medicine; Visit Provider Family Medicine
DX: E03.9 Hypothyroidism, unspecified (principal); Z71.6 Tobacco abuse counseling; Z13.220 Encounter for screening for lipoid disorders
CPT/HCPCS: 36415; 80061; 84443; 86140

== ENCOUNTER → 2025-08-15 14:02 | Outpatient (CLI) | payer OTHER, SELFPAY ==
[2024-04-06 05:54] VITALS: BMI 21.2
--- NOTE | 2025-08-15 14:07 | DI.RAD.S_ITS ---
PROCEDURE: XR SHOULDER RT MIN 2V INDICATIONS: right shoulder pain TECHNIQUE: 3 views of the shoulder were acquired. COMPARISON: [facility], CR, XR SHOULDER LT MIN 2V, 10/01/2022, 11:52. [facility], CR, XR SHOULDER LT MIN 2V, 10/07/2019, 8:36. FINDINGS: Bones: No fractures or dislocations. No suspicious bony lesions. Visualized ribs appear intact. Soft tissues: No suspicious soft tissue calcifications. IMPRESSION: No acute bony abnormality. Dictated by: Flako Rivera M.D. on 08/16/2025 at 15:20 Approved by: Flako Rivera M.D. on 08/16/2025 at 15:20
== END ==
LOC: RAD 14:06
PROVIDERS: PCP Family Medicine; Referring Provider Family Medicine; Visit Provider Family Medicine
DX: M25.511 Pain in right shoulder (principal)
CPT/HCPCS: 73030